=== PATIENT | female | born 1935 | race Caucasian/White ===

== ENCOUNTER 2017-10-17 20:37 | Emergency (ER) | payer MEDICARE, BC ==
[2017-10-17 21:04] VITALS: BP 152/89
[2017-10-17] MEDS ORDERED: Sodium Chloride 0.9% 10 ML Syringe FLUSH PRN (21:14)
[2017-10-17] MEDS ORDERED: Sodium Chloride 0.9% 1,000 ML IV STA (21:14)
[2017-10-17] MEDS ORDERED: Ondansetron 4 MG/2 ML SDV IVPUSH ONE (21:16)
--- NOTE | 2017-10-17 21:34 | EDM.PDOC ---
ED HPI GENERAL MEDICAL PROBLEM - General Chief Complaint: Gastrointestinal Problem Stated Complaint: VOMMITING AND STOMACH ISSUES Time Seen by Provider: 10/17/17 21:02 Source of Information: Reports: Patient History Limitations: Reports: No Limitations - History of Present Illness INITIAL COMMENTS - FREE TEXT/NARRATIVE: The patient presents with nausea, vomiting, and diarrhea. This has been going on since Tuesday. She denies any fever, chills, cough, chest pain, shortness of breath and abdominal pain. She has no dysuria. She has some friends who are also sick like her. They did have a republican on and she is wondering if they got sick from that. She does not have a gallbladder or an appendix. Onset: Gradual Duration: Day(s): (Since Tuesday) Severity: Moderate Improves with: Reports: None Worsens with: Reports: None Associated Symptoms: Reports: Nausea/Vomiting. Denies: Chest Pain, Cough, Fever /Chills, Headaches, Shortness of Breath - Related Data Allergies Allergy/AdvReac Type Severity Reaction Status Date / Time levofloxacin Allergy Cannot Verified 10/17/17 21:04 Remember Penicillins Allergy Hives Verified 10/17/17 21:04 Sulfa (Sulfonamide Allergy Hives Verified 10/17/17 21:04 Antibiotics) propoxyphene HCl AdvReac Vomiting Verified 10/17/17 21:04 [From Jacinta] HCTZ Allergy Cannot Uncoded 10/17/17 21:04 Remember insect bites Allergy Swelling Uncoded 10/17/17 21:04 tilapia Allergy Cannot Uncoded 10/17/17 21:04 Remember Home Meds: Home Meds Abilify. 5 mg PO DAILY 06/02/14 [History] Acetaminophen/oxyCODONE [Percocet 325-5 MG] 1 tab PO Q4H PRN #5 tab 06/02/14 [Rx ] Amitriptyline. 10 mg PO DAILY 06/02/14 [History] Ativan. 1 mg PO BEDTIME 06/02/14 [History] Baby Aspirin. 81 mg PO DAILY 06/02/14 [History] Metoprolol. 25 mg PO DAILY 06/02/14 [History] Protonix. 40 mg PO DAILY 06/02/14 [History] Calcium Carb/Magnesium Cmb #10 [Andry-Mag] 1 tab PO BID 01/15/15 [History] Denosumab [Prolia] 60 mg INJECT ASDIRECTED 01/15/15 [History] Elacom 0 mg TOP ASDIRECTED PRN 01/15/15 [History] Epi-Pen 0.3 mg INJECT ASDIRECTED PRN 01/15/15 [History] Hydrocodone/Acetaminophen [Hydrocodon-Acetaminoph 7.5-325] 5 - 325 mg PO ASDIRECTED PRN 01/15/15 [History] Hydrocodone/Acetaminophen [Lortab 5-325 mg Tablet] 1 - 2 each PO Q6HR PRN #20 tablet 01/15/15 [Rx] Hydrocortisone Acetate [Anusol-Hc] 25 mg PO ASDIRECTED PRN 01/15/15 [History] LORazepam 0.5 mg PO Q8HR PRN #5 tablet 01/15/15 [Rx] LORazepam [Ativan] 0.5 mg PO ASDIRECTED PRN 01/15/15 [History] Levothyroxine 25 mcg PO DAILY 01/15/15 [History] Loperamide [Imodium] 2 mg PO ASDIRECTED PRN 01/15/15 [History] Nitrofurantoin Monohyd/M-Cryst [Macrobid 100 mg Capsule] 100 mg PO BID #14 capsule 01/15/15 [Rx] Psyllium with Sucrose [Metamucil] 0 mg PO ASDIRECTED PRN 01/15/15 [History] Ondansetron [Zofran ODT] 4 mg PO Q6H PRN #20 tab.dis 10/17/17 [Rx] Past Medical History HEENT History: Reports: Hard of Hearing, Impaired Vision Cardiovascular History: Reports: High Cholesterol, Hypertension Gastrointestinal History: Reports: Other (See Below) Other Gastrointestinal History: Crohns Disease 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: Musculoskeletal History: Reports: Arthritis, Osteoarthritis, Other (See Below) Other Musculoskeletal History: plantar fascitis Neurological History: Reports: Other (See Below) 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" Psychiatric History: Reports: Anxiety, Depression - Infectious Disease History Infectious Disease History: Reports: Chicken Pox, Measles, Mumps - Past Surgical History GI Surgical History: Reports: Cholecystectomy Female Surgical History: Reports: Hysterectomy Social & Family History - Tobacco Use Smoking Status *Q: Former Smoker Years of Tobacco use: 25 Packs/Tins Daily: 0.5 Used Tobacco, but Quit: Yes Month Tobacco Last Used: 2004 Second Hand Smoke Exposure: No - Caffeine Use Caffeine Use: Reports: Coffee, Soda, Tea - Alcohol Use Days Per Week of Alcohol Use: 0 - Recreational Drug Use Recreational Drug Use: No ED ROS GENERAL - Review of Systems Review Of Systems: See Below Constitutional: Reports: No Symptoms HEENT: Reports: No Symptoms Respiratory: Reports: No Symptoms Cardiovascular: Reports: No Symptoms Endocrine: Reports: No Symptoms GI/Abdominal: Reports: Diarrhea, Nausea, Vomiting. Denies: Abdominal Pain : Reports: No Symptoms Musculoskeletal: Reports: No Symptoms ED EXAM, GI/ABD - Physical Exam Exam: See Below Exam Limited By: No Limitations General Appearance: Alert, No Apparent Distress Ears: Normal External Exam Nose: Normal Inspection Throat/Mouth: Other (Dry mucus membranes) Head: Atraumatic, Normocephalic Neck: Normal Inspection Respiratory/Chest: No Respiratory Distress, Lungs Clear, Normal Breath Sounds Cardiovascular: Regular Rate, Rhythm, No Edema, No Murmur GI/Abdominal Exam: Soft, Non-Tender, No Organomegaly, No Mass Back Exam: Normal Inspection Extremities: Normal Inspection Neurological: Alert, Oriented, No Motor/Sensory Deficits Course - Vital Signs Last Recorded V/S: Last Vital Signs Temp 97.5 F 10/17/17 20:57 Pulse 101 H 10/17/17 20:57 Resp 18 10/17/17 20:57 BP 152/89 H 10/17/17 20:57 Pulse Ox 98 10/17/17 20:57 Orthostatic Blood Pressure [ 133/90 Standing] Orthostatic Blood Pressure [ 128/88 Sitting] Orthostatic Blood Pressure [ 152/89 Supine] - Orders/Labs/Meds Orders: Active Orders 24 hr Category Date Time Status Peripheral IV Care [RC] . DIRECTED Care 10/17/17 21:15 Active Sodium Chloride 0.9% [Saline Flush] Med 10/17/17 21:14 Active 10 ml FLUSH ASDIRECTED PRN ED Antiemetic Medication Reflex [OM.PC] Stat Oth 10/17/17 21:15 Ordered Peripheral IV Insertion Adult [OM.PC] Stat Oth 10/17/17 21:14 Ordered Medication Orders Sodium Chloride (Saline Flush) 10 ml FLUSH ASDIRECTED PRN PRN Reason: Keep Vein Open Last Admin: 12/25/17 21:39 Dose: 10 ml Labs: Laboratory Tests 10/17/17 10/17/17 Range/Units 21:45 21:45 WBC 8.31 (3.98-10.04) K/mm3 RBC 4.16 (3.98-5.22) M/mm3 Hgb 11.6 (11.2-15.7) gm/L Hct 35.7 (34.1-44.9) % MCV 85.8 (79.4-94.8) fl MCH 27.9 (25.6-32.2) pg MCHC 32.5 (32.2-35.5) g/dl RDW Std Deviation 43.1 (36.4-46.3) fL Plt Count 194 (182-369) K/mm3 MPV 10.2 (9.4-12.3) fl Neut % (Auto) 85.1 H (34.0-71.1) % Lymph % (Auto) 5.8 L (19.3-51.7) % Alpine % (Auto) 8.9 (4.7-12.5) % Eos % (Auto) 0 L (0.7-5.8) Baso % (Auto) 0.1 (0.1-1.2) % Neut # (Auto) 7.07 H (1.56-6.13) K/mm3 Lymph # (Auto) 0.48 L (1.18-3.74) K/mm3 Alpine # (Auto) 0.74 H (0.24-0.36) K/mm3 Eos # (Auto) 0.00 L (0.04-0.36) K/mm3 Baso # (Auto) 0.01 (0.01-0.08) K/mm3 Manual Slide Review Normal smear Sodium 142 (136-145) mEq/L Potassium 3.9 (3.5-5.1) mEq/L Chloride 108 H (98-107) mEq/L Carbon Dioxide 23 (21-32) mEq/L Anion Gap 14.9 (5-15) BUN 26 H (7-18) mg/dL Creatinine 1.8 H (0.55-1.02) mg/dL Est Cr Clr Drug Dosing 20.96 mL/min Estimated GFR (MDRD) 27 (>60) mL/min BUN/Creatinine Ratio 14.4 (14-18) Glucose 120 H (83-115) mg/dL Calcium 8.0 L (8.5-10.1) mg/dL Total Bilirubin 0.4 (0.2-1.0) mg/dL AST 25 (15-37) U/L ALT 20 (14-59) U/L Alkaline Phosphatase 62 (46-116) U/L Total Protein 6.9 (6.4-8.2) g/dl Albumin 3.5 (3.4-5.0) g/dl Globulin 3.4 gm/dL Albumin/Globulin Ratio 1.0 (1-2) Lipase 188 (73-393) U/L Meds: Medications Generic Name Dose Route Start Last Admin Trade Name Freq PRN Reason Stop Dose Admin Sodium Chloride 10 ml 10/17/17 21:14 10/17/17 21:39 Saline Flush FLUSH 10 ml ASDIRECTED PRN Administration Keep Vein Open Discontinued Medications Generic Name Dose Route Start Last Admin Trade Name Freq PRN Reason Stop Dose Admin Sodium Chloride 1,000 mls @ 1,000 mls/hr 10/17/17 21:14 10/17/17 21:38 Normal Saline IV 10/17/17 22:13 1,000 mls/hr .BOLUS STA Administration Ondansetron HCl 4 mg 10/17/17 21:16 10/17/17 21:38 Zofran IVPUSH 10/17/17 21:17 4 mg ONETIME ONE Administration - Re-Assessments/Exams Free Text/Narrative Re-Assessment/Exam: 10/17/17 21:33 I ordered an IV NS 1L bolus, zofran 4mg IV, labs and UA. 10/17/17 22:47 Her CBC looks good. Her creatinine was elevated at 1.8. Her lipase is negative. She feels better. I will discharge her home with some zofran. It appears she had some food poisoning. Departure - Departure Time of Disposition: 22:55 Disposition: Home, Self-Care 01 Condition: Good Clinical Impression: Gastroenteritis, Renal insufficiency - Discharge Information Prescriptions: Ondansetron [Zofran ODT] 4 mg PO Q6H PRN #20 tab.dis PRN Reason: Nausea/Vomiting Referrals: Lalit Kenyon MD [Primary Care Provider] - Forms: ED Department Discharge Additional Instructions: Take the zofran every 6 hours as needed for nausea and vomiting. Drink plenty of fluids. Please return if you are worse. - My Orders Last 24 Hours: My Active Orders 10/17/17 21:14 Sodium Chloride 0.9% [Saline Flush] 10 ml FLUSH ASDIRECTED PRN Peripheral IV Insertion Adult [OM.PC] Stat 10/17/17 21:15 Peripheral IV Care [RC] . DIRECTED ED Antiemetic Medication Reflex [OM.PC] Stat - Assessment/Plan Last 24 Hours: My Active Orders 10/17/17 21:14 Sodium Chloride 0.9% [Saline Flush] 10 ml FLUSH ASDIRECTED PRN Peripheral IV Insertion Adult [OM.PC] Stat 10/17/17 21:15 Peripheral IV Care [RC] . DIRECTED ED Antiemetic Medication Reflex [OM.PC] Stat
== END 2017-10-17 23:15 | disposition home or self-care (01) ==
LOC: JD.ED 20:37
DX: K52.9 Noninfective gastroenteritis and colitis, unspecified (principal); N28.9 Disorder of kidney and ureter, unspecified; E78.00 Pure hypercholesterolemia, unspecified; I10 Essential (primary) hypertension; Z88.1 Allergy status to other antibiotic agents; Z88.0 Allergy status to penicillin; Z88.2 Allergy status to sulfonamides; Z79.899 Other long term (current) drug therapy; Z87.891 Personal history of nicotine dependence
CPT/HCPCS: 36415; 80053; 83690; 85025; 96361; 96374; 99284; J2405; J7040; J7050

== ENCOUNTER 2017-10-19 13:46 | Emergency (ER) | payer MEDICARE, BC, MEDICAID ==
[2017-10-19] MEDS ORDERED: Alum Hydrox/Mag Hydrox/Simeth 30 ML, Lidocaine 2% 15 ML PO ONE ×2 (14:49)
--- NOTE | 2017-10-19 15:02 | EDM.PDOC ---
ED HPI GENERAL MEDICAL PROBLEM - General Chief Complaint: Chest Pain Stated Complaint: HEART ISSUES Time Seen by Provider: 10/19/17 14:32 Source of Information: Reports: Patient History Limitations: Reports: No Limitations - History of Present Illness INITIAL COMMENTS - FREE TEXT/NARRATIVE: Patient is a 81 y/o female who presents to the E.D. complaining of intermittent epigastric discomfort. States it came about today described as a crampy, tightness, sharp, relieved with burping. States the burping relieves the pressure/tightness. States she was evaluated in the E.D. earlier this week for nausea/vomiting/diarrhea since the 15 of October. States multiple friends have had similar symptoms. Denies any history of ingestion of bad or questionable food, out of country travel, blood in her stool, sob, fever, pain with urination, back pain, acid reflux, cp, sob, dizziness, or any additional complaints. States she has been able to keep fluids down but no food. Chest Pain Score (Numeric/FACES): 9 - Related Data Allergies Allergy/AdvReac Type Severity Reaction Status Date / Time levofloxacin Allergy Cannot Verified 10/19/17 13:55 Remember Penicillins Allergy Hives Verified 10/19/17 13:55 Sulfa (Sulfonamide Allergy Hives Verified 10/19/17 13:55 Antibiotics) propoxyphene HCl AdvReac Vomiting Verified 10/19/17 13:55 [From Jacinta] HCTZ Allergy Cannot Uncoded 10/19/17 13:55 Remember insect bites Allergy Swelling Uncoded 10/19/17 13:55 tilapia Allergy Cannot Uncoded 10/19/17 13:55 Remember Home Meds: Home Meds Abilify. 5 mg PO DAILY 06/02/14 [History] Acetaminophen/oxyCODONE [Percocet 325-5 MG] 1 tab PO Q4H PRN #5 tab 06/02/14 [Rx ] Amitriptyline. 10 mg PO DAILY 06/02/14 [History] Ativan. 1 mg PO BEDTIME 06/02/14 [History] Baby Aspirin. 81 mg PO DAILY 06/02/14 [History] Metoprolol. 25 mg PO DAILY 06/02/14 [History] Protonix. 40 mg PO DAILY 06/02/14 [History] Calcium Carb/Magnesium Cmb #10 [Andry-Mag] 1 tab PO BID 01/15/15 [History] Denosumab [Prolia] 60 mg INJECT ASDIRECTED 01/15/15 [History] Elacom 0 mg TOP ASDIRECTED PRN 01/15/15 [History] Epi-Pen 0.3 mg INJECT ASDIRECTED PRN 01/15/15 [History] Hydrocodone/Acetaminophen [Hydrocodon-Acetaminoph 7.5-325] 5 - 325 mg PO ASDIRECTED PRN 01/15/15 [History] Hydrocortisone Acetate [Anusol-Hc] 25 mg PO ASDIRECTED PRN 01/15/15 [History] LORazepam [Ativan] 0.5 mg PO ASDIRECTED PRN 01/15/15 [History] Levothyroxine 25 mcg PO DAILY 01/15/15 [History] Loperamide [Imodium] 2 mg PO ASDIRECTED PRN 01/15/15 [History] Psyllium with Sucrose [Metamucil] 0 mg PO ASDIRECTED PRN 01/15/15 [History] Ondansetron [Zofran ODT] 4 mg PO Q6H PRN #20 tab.dis 10/17/17 [Rx] Past Medical History HEENT History: Reports: Hard of Hearing, Impaired Vision Cardiovascular History: Reports: High Cholesterol, Hypertension Gastrointestinal History: Reports: Other (See Below) Other Gastrointestinal History: Crohns Disease 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: Musculoskeletal History: Reports: Arthritis, Osteoarthritis, Other (See Below) Other Musculoskeletal History: plantar fascitis Neurological History: Reports: Migraines, Other (See Below) 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" Psychiatric History: Reports: Anxiety, Depression - Infectious Disease History Infectious Disease History: Reports: Chicken Pox, Measles, Mumps - Past Surgical History HEENT Surgical History: Reports: Adenoidectomy, Cataract Surgery, Tonsillectomy Cardiovascular Surgical History: Reports: None GI Surgical History: Reports: Appendectomy, Cholecystectomy Female Surgical History: Reports: Hysterectomy Social & Family History - Family History Family Medical History: Noncontributory - Tobacco Use Smoking Status *Q: Never Smoker Years of Tobacco use: 25 Packs/Tins Daily: 0.5 Used Tobacco, but Quit: Yes Month Tobacco Last Used: 2004 Second Hand Smoke Exposure: No - Caffeine Use Caffeine Use: Reports: Coffee, Soda, Tea - Alcohol Use Days Per Week of Alcohol Use: 0 - Recreational Drug Use Recreational Drug Use: No ED ROS GENERAL - Review of Systems Review Of Systems: See Below Constitutional: Reports: Decreased Appetite. Denies: Fever, Chills, Malaise HEENT: Reports: No Symptoms Respiratory: Denies: Shortness of Breath, Cough, Sputum Cardiovascular: Denies: Chest Pain, Dyspnea on Exertion, Lightheadedness, Palpitations, Syncope GI/Abdominal: Reports: Abdominal Pain (epigastric), Diarrhea, Decreased Appetite. Denies: Black Stool, Bloody Stool, Constipation, Nausea, Vomiting : Reports: No Symptoms Musculoskeletal: Reports: No Symptoms Skin: Reports: No Symptoms Neurological: Reports: No Symptoms ED EXAM, GENERAL - Physical Exam Exam: See Below Exam Limited By: No Limitations General Appearance: Alert, WD/WN, No Apparent Distress Ears: Hearing Grossly Normal Nose: Normal Inspection Throat/Mouth: Normal Voice, No Airway Compromise Neck: Normal Inspection, Supple Respiratory/Chest: No Respiratory Distress, Lungs Clear, Normal Breath Sounds, Chest Non-Tender Cardiovascular: Normal Peripheral Pulses, Regular Rate, Rhythm, No Murmur Peripheral Pulses: 4+: Radial (L), Radial (R) GI/Abdominal: Normal Bowel Sounds, Soft, No Organomegaly, No Distention, Tender (mild tenderness to the epigastric region) Back Exam: Normal Inspection Extremities: Normal Inspection, Non-Tender, No Pedal Edema Neurological: Alert, Oriented, CN II-XII Intact, Normal Cognition, No Motor/ Sensory Deficits Psychiatric: Normal Affect, Normal Mood Skin Exam: Warm, Dry, Intact, Normal Color Course - Vital Signs Last Recorded V/S: Last Vital Signs Temp 97.6 F 10/19/17 13:55 Pulse 84 10/19/17 15:00 Resp 18 10/19/17 15:00 BP 123/62 10/19/17 15:00 Pulse Ox 100 10/19/17 15:00 - Orders/Labs/Meds Labs: Laboratory Tests 10/19/17 10/19/17 10/19/17 Range/Units 14:15 14:15 14:15 WBC 6.67 (3.98-10.04) K/mm3 RBC 3.82 L (3.98-5.22) M/mm3 Hgb 10.7 L (11.2-15.7) gm/L Hct 33.0 L (34.1-44.9) % MCV 86.4 (79.4-94.8) fl MCH 28.0 (25.6-32.2) pg MCHC 32.4 (32.2-35.5) g/dl RDW Std Deviation 43.9 (36.4-46.3) fL Plt Count 179 L (182-369) K/mm3 MPV 11.1 (9.4-12.3) fl Neut % (Auto) 68.7 (34.0-71.1) % Lymph % (Auto) 11.8 L (19.3-51.7) % Pershing % (Auto) 18.4 H (4.7-12.5) % Eos % (Auto) 0.9 (0.7-5.8) Baso % (Auto) 0.1 (0.1-1.2) % Neut # (Auto) 4.57 (1.56-6.13) K/mm3 Lymph # (Auto) 0.79 L (1.18-3.74) K/mm3 Pershing # (Auto) 1.23 H (0.24-0.36) K/mm3 Eos # (Auto) 0.06 (0.04-0.36) K/mm3 Baso # (Auto) 0.01 (0.01-0.08) K/mm3 Manual Slide Review Normal smear PT 11.3 (8.0-13.0) SECONDS INR 1.03 Sodium 142 (136-145) mEq/L Potassium 3.7 (3.5-5.1) mEq/L Chloride 109 H (98-107) mEq/L Carbon Dioxide 17 L (21-32) mEq/L Anion Gap 19.7 H (5-15) BUN 27 H (7-18) mg/dL Creatinine 1.8 H (0.55-1.02) mg/dL Est Cr Clr Drug Dosing 20.96 mL/min Estimated GFR (MDRD) 27 (>60) mL/min BUN/Creatinine Ratio 15.0 (14-18) Glucose 86 (83-115) mg/dL Calcium 7.2 L (8.5-10.1) mg/dL Total Bilirubin 0.4 (0.2-1.0) mg/dL AST 50 H (15-37) U/L ALT 31 (14-59) U/L Alkaline Phosphatase 56 (46-116) U/L Troponin I < 0.017 (0.00-0.056) ng/mL C-Reactive Protein 1.0 (<1.0) mg/dL Total Protein 6.5 (6.4-8.2) g/dl Albumin 3.3 L (3.4-5.0) g/dl Globulin 3.2 gm/dL Albumin/Globulin Ratio 1.0 (1-2) Lipase 353 (73-393) U/L Meds: Medications Discontinued Medications Generic Name Dose Route Start Last Admin Trade Name Freq PRN Reason Stop Dose Admin Al Hydroxide/Mg Hydroxide 30 0 ml 10/19/17 14:49 10/19/17 15:14 ml/ Lidocaine HCl 15 ml PO 10/19/17 14:50 45 ml ONETIME ONE Administration Sodium Chloride 500 mls @ 999 mls/hr 10/19/17 15:33 10/19/17 15:49 Normal Saline IV 10/19/17 16:03 999 mls/hr .BOLUS ONE Administration Pantoprazole Sodium 40 mg 10/19/17 15:42 10/19/17 15:49 Protonix Iv IVPUSH 10/19/17 15:43 40 mg ONETIME ONE Administration Sodium Chloride 10 ml 10/19/17 15:39 Saline Flush FLUSH ASDIRECTED PRN Keep Vein Open - Re-Assessments/Exams Free Text/Narrative Re-Assessment/Exam: IV established. Basic labs and studies obtained include CBC, chem 14, lipase, troponin, EKG, and CRP. In addition will obtain abdominal series with a chest x- ray. Suspect cause of discomfort is either secondary to esophageal spasms, hiatal hernia, or GERD. EKG sinus tach at a rate of 102 with right bundle branch block pattern, occasional PACs, QTC mildly prolonged, left axis deviation, and left posterior fascicular block. 10/19/17 15:41 Labs reviewed: Sodium 142, potassium 3.7,Cl- 109, CO2 17, AG 19.7 , BUN 27, and Cr 1.8. AST mildly elevated at 50, troponin less than 0.017, CRP 1, and lipase is 353. Patient is in metabolic acidosis secondary to volume depletion. Creatinine 1.8 which is above her baseline when reviewing previous blood work. Ordered 1 liter of NS 500mls/hr for rehydration. GI cocktail relieved discomfort, thus ordered protonix 40mg IVP. CXR and abdomen series reviewed with Dr. Wynn. Few Air fluid levels present. No findings concerning for obstruction. Hiatal Hernia present. Discuss results of labs and chest x-ray with patient. She states she is feeling better. She is ready be discharged home. Departure - Departure Time of Disposition: 17:24 Disposition: Home, Self-Care 01 Condition: Good Clinical Impression: Chronic GERD, Hiatal hernia, Elevated serum creatinine, Volume depletion, Gastroenteritis, Renal insufficiency, Gastroenteritis Instructions: Hiatal Hernia Referrals: Lalit Kenyon MD [Primary Care Provider] - Forms: ED Department Discharge Additional Instructions: As discussed labs indicated due to nausea/vomiting and diarrhea that you were volume depleted. Suspect cause of intermittent pain to the epigastric region is related to a hiatal hernia with GERD. This was exacerbated with recent GI infection. Thus suggest pushing fluids eating a bland diet that you can tolerate. Refrain from caffeine use. Continue taking the Zofran as needed for nausea and vomiting. She be taking Protonix as prescribed. Suggest during the day if you need for intermittent flareups to utilize Maalox when necessary. Follow-up with your primary care provider the end of this week or next week for reevaluation. Return to ED if he developed any new or worsening symptoms.
[2017-10-19 15:16] VITALS: BP 123/62
[2017-10-19] MEDS ORDERED: Sodium Chloride 0.9% 500 ML IV ONE (15:33)
[2017-10-19] MEDS ORDERED: Sodium Chloride 0.9% 10 ML Syringe FLUSH PRN (15:39)
[2017-10-19] MEDS ORDERED: Pantoprazole 40 MG Vial IVPUSH ONE (15:42)
--- NOTE | 2017-10-19 16:27 | CR ---
Abdominal series: Supine and upright views of the abdomen were obtained as well as frontal view of the chest. Comparison: No previous abdominal x-ray, previous abdomen and pelvis CT exam of 01/26/16 is available. Chest x-ray of 01/15/15 is available. Heart size is normal. Mild tortuosity of the thoracic aorta is seen. Lungs are clear. Scoliosis is noted within the spine. Surgical clips are seen from prior cholecystectomy. Vascular calcification is seen. Bowel gas pattern appears normal. Impression: 1. Incidental findings. Diagnostic code #2
== END 2017-10-19 17:40 | disposition home or self-care (01) ==
LOC: JD.ED 13:46
DX: K21.9 Gastro-esophageal reflux disease without esophagitis (principal); K52.9 Noninfective gastroenteritis and colitis, unspecified; K44.9 Diaphragmatic hernia without obstruction or gangrene; E86.9 Volume depletion, unspecified; N28.9 Disorder of kidney and ureter, unspecified; R79.89 Other specified abnormal findings of blood chemistry; I10 Essential (primary) hypertension; F32.9 Major depressive disorder, single episode, unspecified; Z87.891 Personal history of nicotine dependence; Z79.899 Other long term (current) drug therapy; Z88.0 Allergy status to penicillin; Z88.1 Allergy status to other antibiotic agents; Z88.2 Allergy status to sulfonamides; Z88.8 Allergy status to other drugs, medicaments and biological substances; Z91.048 Other nonmedicinal substance allergy status
CPT/HCPCS: 36415; 74022; 80053; 83690; 84484; 85025; 85610; 86140; 96361; 96374; 99285; A9270; C9113; J7040

== ENCOUNTER 2019-04-02 07:05 | Inpatient (IN) | payer MEDICARE, BC, MEDICAID ==
[~2019-04-02 07:05] MED LIST: Cyclobenzaprine 10 MG Tab PO PRN; Lactated Ringers 1,000 ML IV SCH; Lidocaine 1%/Sod Bicarbonate in NS 8.4% 1 ML Syringe IDERM PRN; Sodium Chloride 0.9% 10 ML Syringe FLUSH PRN
[2019-04-02] MEDS ORDERED: Clindamycin Phosphate 900 MG/6 ML SDV ONE (07:14)
[2019-04-02] MEDS ORDERED: ceFAZolin 1 GM Vial ONE ×2 (07:21→07:45)
[2019-04-02] MEDS ORDERED: fentaNYL 100 MCG/2 ML SDV ONE ×3 (07:21→10:41)
--- NOTE | 2019-04-02 07:36 | PCM.PREANE ---
Preanesthetic Assessment - Anesthesia/Transfusion/Family Hx Anesthesia History: Prior Anesthesia Without Reaction Family History of Anesthesia Reaction: Yes Family History of Anesthesia Reaction, Other: vomiting Transfusion History: No Prior Transfusion(s) Intubation History: Unknown - Review of Systems General: No Symptoms Pulmonary: Shortness of Breath Cardiovascular: Dyspnea on Exertion Gastrointestinal: No Symptoms Neurological: No Symptoms Other: Reports: Thyroid Problems - Physical Assessment NPO Status Date: 04/01/19 NPO Status Time: 11:45 Height: 1.6 m Weight: 69 kg ASA Class: 3 Mental Status: Alert & Oriented x3 Dentition: Reports: Dentures ROM/Head Extension: Limited/Partial Lungs: Clear to Auscultation Cardiovascular: Regular Rate - Lab Values: Laboratory Last Values MRSA (PCR) Negative 03/21/19 13:48 - Allergies Allergies/Adverse Reactions: Allergies Allergy/AdvReac Type Severity Reaction Status Date / Time fish derived Allergy Cannot Verified 03/30/19 13:40 Remember hydrochlorothiazide Allergy Cannot Verified 03/30/19 13:40 Remember levofloxacin Allergy Cannot Verified 03/30/19 13:40 Remember Penicillins Allergy Hives Verified 03/30/19 13:40 Sulfa (Sulfonamide Allergy Hives Verified 03/30/19 13:40 Antibiotics) propoxyphene HCl AdvReac Vomiting Verified 03/30/19 13:40 [From Darvon] HCTZ Allergy Cannot Uncoded 03/30/19 13:40 Remember insect bites Allergy Swelling Uncoded 03/30/19 13:40 tilapia Allergy Cannot Uncoded 03/30/19 13:40 Remember - Blood Blood Available: Yes Product(s) Available: PRBC - Anesthesia Plan Beta Suyapa: Metoprolol Med Last Dose Date: 04/02/19 Med Last Dose Time: 05:50 - Acknowledgements Anesthesia Type Planned: Spinal Pt an Appropriate Candidate for the Planned Anesthesia: Yes Alternatives and Risks of Anesthesia Discussed w Pt/Guardian: Yes Pt/Guardian Understands and Agrees with Anesthesia Plan: Yes Additional Comments: test dose cephazolin PreAnesthesia Questionnaire HEENT History: Reports: Cataract, Hard of Hearing, Impaired Vision Cardiovascular History: Reports: CAD, High Cholesterol, Hypertension, Other ( See Below) Other Cardiovascular History: varicose veins Respiratory History: Reports: Other (See Below) Other Respiratory History: fiberoptic assisted intubation Gastrointestinal History: Reports: Chronic Diarrhea, GERD, Irritable Bowel Syndrome, Other (See Below) Other Gastrointestinal History: Crohns Disease Genitourinary History: Reports: Other (See Below) Other Genitourinary History: CKD IV, lithium neprhpathy, kidney stone, UTIs, colporrhaphy, cyst removed from abdomen 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: Musculoskeletal History: Reports: Arthritis, Osteoarthritis, Osteoporosis, Other (See Below) Other Musculoskeletal History: plantar fascitis Neurological History: Reports: Headaches, Chronic, Migraines, Other (See Below) 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", degenerative disc disease Psychiatric History: Reports: Anxiety, Bipolar, Depression, Other (See Below) Other Psychiatric History: manic depressive illness Endocrine/Metabolic History: Reports: Hypothyroidism, Osteopenia Hematologic History: Reports: Anemia, Iron Deficiency Immunologic History: Reports: None Oncologic (Cancer) History: Reports: None Dermatologic History: Reports: None - Infectious Disease History Infectious Disease History: Reports: Chicken Pox, Measles, Mumps - Past Surgical History Head Surgeries/Procedures: Reports: None HEENT Surgical History: Reports: Adenoidectomy, Cataract Surgery, Tonsillectomy Cardiovascular Surgical History: Reports: None Respiratory Surgical History: Reports: None GI Surgical History: Reports: Appendectomy, Cholecystectomy, EGD Female Surgical History: Reports: Hysterectomy, Oophorectomy Male Surgical History: Reports: None Endocrine Surgical History: Reports: Parathyroidectomy Musculoskeletal Surgical History: Reports: Knee Replacement Oncologic Surgical History: Reports: None Dermatological Surgical History: Reports: None - SUBSTANCE USE Smoking Status *Q: Former Smoker Second Hand Smoke Exposure: No Recreational Drug Use History: No - HOME MEDS Home Medications: Home Meds ARIPiprazole [Aripiprazole] 2.5 mg PO DAILY 03/30/19 [History] Acetaminophen [Tylenol] 650 mg PO Q4HR PRN 03/30/19 [History] Cholecalciferol (Vitamin D3) [Vitamin D3] 5,000 unit PO DAILY 03/30/19 [History] Diclofenac Sodium [Voltaren 1% Gel] 1 dose TOP QID PRN 03/30/19 [History] EPINEPHrine [Epipen] 1 dose IM ONETIME PRN 03/30/19 [History] Iron Ag,Ps/C/Fa6/B12/Zn/SA/Sto [Niferex Tablet] 1 tab PO DAILY 03/30/19 [History ] LORazepam 1 mg PO BID 03/30/19 [History] Levothyroxine 25 mcg PO DAILY 03/30/19 [History] Loperamide [Imodium AD] 2 mg PO ASDIRECTED PRN 03/30/19 [History] Metoprolol Succinate [Toprol XL 50mg] 25 mg PO DAILY 03/30/19 [History] Mometasone Furoate [Elocon] 1 dose TOP ASDIRECTED PRN 03/30/19 [History] Pantoprazole Sodium [Protonix] 40 mg PO DAILY 03/30/19 [History] Psyllium Husk [Psyllium Seed] 1 dose PO DAILY PRN 03/30/19 [History] Sodium Bicarbonate 650 mg PO BID 03/30/19 [History] traMADol HCl [Tramadol HCl] 50 mg PO TID PRN 03/30/19 [History] - CURRENT (IN HOUSE) MEDS Current Meds: Current Medications Hydrocodone Bitart/Acetaminophen ([place] 325-5 Mg) 1 - 2 tab PO Q4H PRN PRN Reason: Pain Aspirin (Halfprin) 81 mg PO BID JAY Bisacodyl (Dulcolax) 5 mg PO DAILY PRN PRN Reason: Constipation Morphine Sulfate 8 mg/Epinephrine HCl 0.3 mg/Cefuroxime Sodium 750 mg/Sodium Chloride 27.9 ml 0 mg .XX ONETIME ONE Stop: 04/02/19 07:01 Cyclobenzaprine HCl (Flexeril) 10 mg PO TID PRN PRN Reason: Spasms Docusate Sodium (Colace) 100 mg PO BID [facility] Hydromorphone HCl (Dilaudid) 0.2 mg IVPUSH Q2H PRN PRN Reason: Pain (moderate 4-6) Lactated Ringer's (Ringers, Lactated) 1,000 mls @ 125 mls/hr IV ASDIRECTED JAY Stop: 04/02/19 23:00 Cefazolin Sodium/Dextrose 2 gm (/ Premix) 50 mls @ 100 mls/hr IV Q8H [facility] Stop: 04/03/19 07:29 Lidocaine/Sodium Bicarbonate (Buffered Lidocaine 1% In Ns 8.4%) 0.25 ml IDERM ONETIME PRN PRN Reason: Prior to IV Start Stop: 04/02/19 18:00 Naloxone HCl (Narcan) 0.1 mg IVPUSH Q5M PRN PRN Reason: Oversedation Ondansetron HCl (Zofran) 4 mg IVPUSH Q6H PRN PRN Reason: Nausea/Vomiting Senna (Senna) 8.6 mg PO BID PRN PRN Reason: Constipation Sodium Chloride (Saline Flush) 10 ml FLUSH ASDIRECTED PRN PRN Reason: Keep Vein Open Stop: 04/02/19 18:00 Discontinued Medications Bupivacaine HCl (Marcaine 0.25%) Confirm Administered Dose 30 ml .ROUTE .STK- MED ONE Stop: 04/02/19 07:16 Cefazolin Sodium (Ancef) Confirm Administered Dose 2 gm .ROUTE .STK-MED ONE Stop: 04/02/19 07:16 Cefazolin Sodium (Ancef) Confirm Administered Dose 1 gm .ROUTE .STK-MED ONE Stop: 04/02/19 07:22 Clindamycin Phosphate (Cleocin) Confirm Administered Dose 900 mg .ROUTE .STK- MED ONE Stop: 04/02/19 07:15 Fentanyl (Sublimaze) Confirm Administered Dose 100 mcg .ROUTE .STK-MED ONE Stop: 04/02/19 07:22 Iodine (Iodine 2% Mild Tincture) Confirm Administered Dose 30 ml .ROUTE .STK- MED ONE Stop: 04/02/19 07:16 Tranexamic Acid (Cyklokapron) Confirm Administered Dose 1,000 mg .ROUTE .STK- MED ONE Stop: 04/02/19 07:15 Vancomycin HCl (Vancomycin) Confirm Administered Dose 1 gm .ROUTE .STK-MED ONE Stop: 04/02/19 07:15
[2019-04-02] MEDS: Sodium Chloride 0.9% 1,000 ML IV SCH ×3 (07:40→13:35)
[2019-04-02] MEDS ORDERED: Ropivacaine 0.5% 5 MG/ML 30 ML SDV ONE (07:41)
[2019-04-02] MEDS ORDERED: EPINEPHrine 1 MG/ML SDV ONE (07:41)
[2019-04-02] MEDS ORDERED: Sennosides 8.6 MG Tab PO PRN (08:30)
[2019-04-02] MEDS ORDERED: Propofol 200 MG/20 ML SDV ONE (08:40)
[2019-04-02] MEDS ORDERED: Midazolam 1 MG/ML 2 ML SDV ONE (08:47)
[2019-04-02] MEDS ORDERED: Rocuronium 50 MG/5 ML Vial ONE (08:48)
[2019-04-02] MEDS ORDERED: Phenylephrine/Normal Saline 100 MCG/ML 10 ML Syringe ONE (08:51)
[2019-04-02] MEDS ORDERED: Bisacodyl 5 MG Tab PO PRN (09:00)
[2019-04-02] MEDS ORDERED: Naloxone 0.4 MG/ML SDV IVPUSH PRN (09:00)
[2019-04-02] MEDS ORDERED: Labetalol 100 MG/20 ML MDV ONE (09:19)
[2019-04-02] MEDS ORDERED: Ondansetron 4 MG/2 ML SDV ONE (09:21)
[2019-04-02] MEDS: Iodine/Sodium Iodide 2% Tincture 30 ML Bottle ONE ×2 (09:21→09:48)
[2019-04-02] MEDS: ceFAZolin 1 GM Vial ONE ×2 (09:23→09:51)
[2019-04-02] MEDS: Morphine 8 MG, EPINEPHrine 0.3 MG, Cefuroxime 750 MG, Sodium Chloride 0.9% 28.9 ML ONE ×12 (09:24→19:46)
[2019-04-02] MEDS: Bupivacaine 0.25% 30 ML SDV ONE ×2 (09:25→09:56)
[2019-04-02] MEDS: Vancomycin 1 GM SDV ONE ×2 (09:26→09:59)
--- NOTE | 2019-04-02 09:26 | PCM.CONS ---
H&P History of Present Illness - General Date of Service: 04/02/19 Admit Problem/Dx: Admission Diagnosis/Problem Admission Diagnosis/Problem Osteoarthritis of knee Source of Information: Patient, Old Records, Provider, RN, RN Notes Reviewed History Limitations: Reports: No Limitations - History of Present Illness Initial Comments - Free Text/Narative: Rossy Mas is an 83 yo female patient of Dr. Lu who is post-operative day 0 of right TKA. Hospital medicine was consulted for post-operative medical care of the following listed medical conditions. At this time she is resting comfortably in bed. Pain is controlled. She denies any chest pain, shortness of breath, palpitations, nausea, or vomiting. She carries a history of: Stage IV CKD, HTN, HLD, CAD, Hypothyroidism, GERD, Osteopenia, Parathyroidectomy, Iron deficiency anemia, Migraines, Varicose Veins, Chronic Diarrhea, IBS, Crohn's Disease, [place] neuropathy, Anxiety, Bipolar disorder, depression, osteopenia, DJD. She is a former smoker. She is a full code. Her primary care provider is Dr. Winchester. She sees Dr. Swenson for nephrology. Right Knee Pain Score (Numeric/FACES): 2 - Related Data Allergies/Adverse Reactions: Allergies Allergy/AdvReac Type Severity Reaction Status Date / Time fish derived Allergy Cannot Verified 03/30/19 13:40 Remember hydrochlorothiazide Allergy Cannot Verified 03/30/19 13:40 Remember levofloxacin Allergy Cannot Verified 03/30/19 13:40 Remember Penicillins Allergy Hives Verified 03/30/19 13:40 Sulfa (Sulfonamide Allergy Hives Verified 03/30/19 13:40 Antibiotics) propoxyphene HCl AdvReac Vomiting Verified 03/30/19 13:40 [From Darvon] HCTZ Allergy Cannot Uncoded 03/30/19 13:40 Remember insect bites Allergy Swelling Uncoded 03/30/19 13:40 tilapia Allergy Cannot Uncoded 03/30/19 13:40 Remember Home Medications: Home Meds ARIPiprazole [Aripiprazole] 2.5 mg PO DAILY 03/30/19 [History] Acetaminophen [Tylenol] 650 mg PO Q4HR PRN 03/30/19 [History] Cholecalciferol (Vitamin D3) [Vitamin D3] 5,000 unit PO DAILY 03/30/19 [History] Diclofenac Sodium [Voltaren 1% Gel] 1 dose TOP QID PRN 03/30/19 [History] EPINEPHrine [Epipen] 1 dose IM ONETIME PRN 03/30/19 [History] Iron Ag,Ps/C/Fa6/B12/Zn/SA/Sto [Niferex Tablet] 1 tab PO DAILY 03/30/19 [History ] LORazepam 1 mg PO BID 03/30/19 [History] Levothyroxine 25 mcg PO DAILY 03/30/19 [History] Loperamide [Imodium AD] 2 mg PO ASDIRECTED PRN 03/30/19 [History] Metoprolol Succinate [Toprol XL 50mg] 25 mg PO DAILY 03/30/19 [History] Mometasone Furoate [Elocon] 1 dose TOP ASDIRECTED PRN 03/30/19 [History] Pantoprazole Sodium [Protonix] 40 mg PO DAILY 03/30/19 [History] Psyllium Husk [Psyllium Seed] 1 dose PO DAILY PRN 03/30/19 [History] Sodium Bicarbonate 325 mg PO BID 03/30/19 [History] traMADol HCl [Tramadol HCl] 50 mg PO TID PRN 03/30/19 [History] Past Medical History HEENT History: Reports: Cataract, Hard of Hearing, Impaired Vision Cardiovascular History: Reports: CAD, High Cholesterol, Hypertension, Other ( See Below) Other Cardiovascular History: varicose veins Respiratory History: Reports: Other (See Below) Other Respiratory History: fiberoptic assisted intubation Gastrointestinal History: Reports: Chronic Diarrhea, GERD, Irritable Bowel Syndrome, Other (See Below) Other Gastrointestinal History: Crohns Disease Genitourinary History: Reports: Other (See Below) Other Genitourinary History: CKD IV, lithium neprhpathy, kidney stone, UTIs, colporrhaphy, cyst removed from abdomen 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: Musculoskeletal History: Reports: Arthritis, Osteoarthritis, Osteoporosis, Other (See Below) Other Musculoskeletal History: plantar fascitis Neurological History: Reports: Headaches, Chronic, Migraines, Other (See Below) 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", degenerative disc disease Psychiatric History: Reports: Anxiety, Bipolar, Depression, Other (See Below) Other Psychiatric History: manic depressive illness Endocrine/Metabolic History: Reports: Hypothyroidism, Osteopenia Hematologic History: Reports: Anemia, Iron Deficiency Immunologic History: Reports: None Oncologic (Cancer) History: Reports: None Dermatologic History: Reports: None - Infectious Disease History Infectious Disease History: Reports: Chicken Pox, Measles, Mumps - Past Surgical History Head Surgeries/Procedures: Reports: None HEENT Surgical History: Reports: Adenoidectomy, Cataract Surgery, Tonsillectomy Cardiovascular Surgical History: Reports: None Respiratory Surgical History: Reports: None GI Surgical History: Reports: Appendectomy, Cholecystectomy, EGD Female Surgical History: Reports: Hysterectomy, Oophorectomy Male Surgical History: Reports: None Endocrine Surgical History: Reports: Parathyroidectomy Musculoskeletal Surgical History: Reports: Knee Replacement Oncologic Surgical History: Reports: None Dermatological Surgical History: Reports: None Social & Family History - Family History Family Medical History: Noncontributory - Tobacco Use Smoking Status *Q: Former Smoker Used Tobacco, but Quit: Yes Month/Year Tobacco Last Used: 2008 Second Hand Smoke Exposure: No - Caffeine Use Caffeine Use: Reports: Coffee - Recreational Drug Use Recreational Drug Use: No H&P Review of Systems - Review of Systems: Review Of Systems: See Below General: Reports: No Symptoms. Denies: Fever, Chills HEENT: Reports: No Symptoms. Denies: Headaches, Sore Throat Pulmonary: Reports: No Symptoms. Denies: Shortness of Breath, Wheezing, Pleuritic Chest Pain, Cough, Sputum Cardiovascular: Reports: No Symptoms. Denies: Chest Pain, Palpitations, Dyspnea on Exertion, Edema Gastrointestinal: Reports: No Symptoms. Denies: Abdominal Pain, Constipation, Diarrhea, Nausea, Vomiting Genitourinary: Reports: No Symptoms. Denies: Pain Musculoskeletal: Reports: Leg Pain Skin: Reports: No Symptoms. Denies: Cyanosis Psychiatric: Reports: No Symptoms. Denies: Confusion, Mood Lability Neurological: Reports: No Symptoms Hematologic/Lymphatic: Reports: No Symptoms Immunologic: Reports: No Symptoms Exam - Exam Exam: See Below - Vital Signs Vital Signs: Last Vital Signs Temp 97.5 F 04/02/19 07:30 Pulse 76 04/02/19 07:30 Resp 16 04/02/19 07:30 BP 148/86 H 04/02/19 07:30 Pulse Ox 95 04/02/19 07:30 Weight: 152 lb 1.903 oz - Exam Quality Assessment: Supplemental Oxygen, DVT Prophylaxis General: Alert, Oriented, Cooperative. No: Mild Distress HEENT: Conjunctiva Clear, EACs Clear, EOMI, Hearing Intact, Mucosa Moist & [place] , Nares Patent, Normal Nasal Septum, Posterior Pharynx Clear. No: TMs Clear, PERRLA Neck: Supple, Trachea Midline Lungs: Clear to Auscultation, Normal Respiratory Effort Cardiovascular: Regular Rate, Regular Rhythm GI/Abdominal Exam: Normal Bowel Sounds, Soft, Non-Tender, No Distention, No Abnormal Bruit (Female) Exam: Deferred Rectal (Female) Exam: Deferred Back Exam: Normal Inspection, Full Range of Motion Extremities: No Pedal Edema, Normal Capillary Refill, Leg Pain, Limited Range of Motion, Other (Bandage in place on right leg. Bandage is dry and intact. Cooling pack in place. ) Peripheral Pulses: 2+: Radial (L), Radial (R), Dorsalis Pedis (L), Dorsalis Pedis (R) Skin: Warm, Dry, Intact Neurological: Cranial Nerves Intact (Grossly ) Neuro Extensive - Mental Status: Alert, Oriented x3 Psychiatric: Alert, Normal Affect, Normal Mood. No: Labile Mood, Agitated - Patient Data Lab Results Last 24 hrs: Laboratory Results - last 24 hr 04/02/19 04/02/19 04/02/19 Range/Units 07:40 07:40 07:40 WBC 7.25 (3.98-10.04) K/mm3 RBC 4.34 (3.98-5.22) M/mm3 Hgb 11.9 (11.2-15.7) gm/L Hct 36.6 (34.1-44.9) % MCV 84.3 (79.4-94.8) fl MCH 27.4 (25.6-32.2) pg MCHC 32.5 (32.2-35.5) g/dl RDW Std Deviation 42.9 (36.4-46.3) fL Plt Count 219 (182-369) K/mm3 MPV 11.0 (9.4-12.3) fl Neut % (Auto) 67.1 (34.0-71.1) % Lymph % (Auto) 15.9 L (19.3-51.7) % [place] % (Auto) 12.7 H (4.7-12.5) % Eos % (Auto) 3.6 (0.7-5.8) Baso % (Auto) 0.4 (0.1-1.2) % Neut # (Auto) 4.87 (1.56-6.13) K/mm3 Lymph # (Auto) 1.15 L (1.18-3.74) K/mm3 [place] # (Auto) 0.92 H (0.24-0.36) K/mm3 Eos # (Auto) 0.26 (0.04-0.36) K/mm3 Baso # (Auto) 0.03 (0.01-0.08) K/mm3 PT 10.9 (9.5-12.1) SECONDS INR 1.00 Sodium 141 (136-145) mEq/L Potassium 4.1 (3.5-5.1) mEq/L Chloride 106 (98-107) mEq/L Carbon Dioxide 23 (21-32) mEq/L Anion Gap 16.1 H (5-15) BUN 39 H (7-18) mg/dL Creatinine 1.9 H (0.55-1.02) mg/dL Est Cr Clr Drug Dosing 19.21 mL/min Estimated GFR (MDRD) 25 (>60) mL/min BUN/Creatinine Ratio 20.5 H (14-18) Glucose 99 (83-115) mg/dL Calcium 9.2 (8.5-10.1) mg/dL Result Diagrams: 04/02/19 07:40 04/02/19 07:40 Consult PN Assessment/Plan POD#: 0 Procedures: Procedures ANTINUCLEAR ANTIBODIES (06/23/18) ASSAY NEPHELOMETRY NOT SPEC (06/23/18) ASSAY OF AMYLASE (01/15/15) ASSAY OF BLOOD/URIC ACID (06/23/18) ASSAY OF CREATININE (01/03/15) ASSAY OF FERRITIN (06/23/18) ASSAY OF IRON (06/23/18) ASSAY OF LIPASE (10/19/17) ASSAY OF PARATHORMONE (06/23/18) ASSAY OF PROTEIN URINE (06/23/18) ASSAY OF TRANSFERRIN (06/23/18) ASSAY OF TROPONIN QUANT (10/19/17) ASSAY OF URINE CREATININE (06/23/18) C-REACTIVE PROTEIN (10/19/17) CARDIOVASCULAR STRESS TEST (09/24/16) CHEST X-RAY 1 VIEW FRONTAL (01/15/15) COMP SCREEN MAMMOGRAM ADD-ON (06/14/16) COMPLEMENT ANTIGEN (06/23/18) COMPLETE CBC W/AUTO DIFF WBC (10/11/18) COMPREHEN METABOLIC PANEL (10/19/17) CT ABD & PELVIS W/O CONTRAST (01/26/16) CULTURE AEROBIC IDENTIFY (08/03/14) ELECTROCARDIOGRAM TRACING (01/15/15) EMERGENCY DEPT VISIT (09/07/18) EMERGENCY DEPT VISIT (10/19/17) EMERGENCY DEPT VISIT (10/17/17) FLUORESCENT ANTIBODY TITER (06/23/18) HIV-1 AG IA (06/23/18) HT MUSCLE IMAGE SPECT MULT (09/24/16) HYDRATE IV INFUSION ADD-ON (10/19/17) IMMUNOASSAY QUANT NOS NONAB (06/23/18) MICROBE SUSCEPTIBLE PETER (03/27/18) MRI JOINT UPR EXTREM W/O DYE (05/24/14) OFFICE/OUTPATIENT VISIT EST (03/27/18) OT EVALUATION (07/16/14) PROTEIN E-PHORESIS/URINE/CSF (06/23/18) PROTHROMBIN TIME (10/19/17) RENAL FUNCTION PANEL (10/11/18) ROUTINE VENIPUNCTURE (10/11/18) SELF CARE MNGMENT TRAINING (07/16/14) THER/PROPH/DIAG INJ IV PUSH (10/19/17) THER/PROPH/DIAG INJ SC/IM (09/07/18) THERAPEUTIC ACTIVITIES (08/14/14) THERAPEUTIC EXERCISES (08/14/14) ULTRASOUND THERAPY (07/16/14) URINALYSIS AUTO W/O SCOPE (02/26/15) URINALYSIS AUTO W/SCOPE (06/23/18) URINE BACTERIA CULTURE (03/27/18) URINE CULTURE/COLONY COUNT (03/27/18) US EXAM ABDO BACK WALL DANIELS (06/30/18) VITAMIN D 25 HYDROXY (06/23/18) X-RAY EXAM KNEE 4 OR MORE (09/07/18) X-RAY EXAM OF ANKLE (05/02/18) X-RAY EXAM SERIES ABDOMEN (10/19/17) (1) S/P total knee arthroplasty SNOMED Code(s): 6381039605990, 632696516, 6889191740508 Code(s): Z96.659 - PRESENCE OF UNSPECIFIED ARTIFICIAL KNEE JOINT Priority: High Current Visit: Yes Qualifiers: Laterality: right Qualified Code(s): Z96.651 - Presence of right artificial knee joint (2) HTN (hypertension) SNOMED Code(s): 60563887 Code(s): I10 - ESSENTIAL (PRIMARY) HYPERTENSION Priority: Medium Current Visit: No Qualifiers: Hypertension type: unspecified Qualified Code(s): I10 - Essential (primary ) hypertension (3) HLD (hyperlipidemia) SNOMED Code(s): 83486903 Code(s): E78.5 - HYPERLIPIDEMIA, UNSPECIFIED Priority: Low Current Visit : No Qualifiers: Hyperlipidemia type: unspecified Qualified Code(s): E78.5 - Hyperlipidemia , unspecified (4) CAD (coronary artery disease) SNOMED Code(s): 08298349 Code(s): I25.10 - ATHSCL HEART DISEASE OF [place] CORONARY ARTERY W/O ANG PCTRS Priority: Medium Current Visit: No Qualifiers: Coronary Disease-Associated Artery/Lesion type: unspecified vessel or lesion type [place] vs. transplanted heart: [place] heart Associated angina: angina presence unspecified Qualified Code(s): I25.10 - Atherosclerotic heart disease of [place] coronary artery without angina pectoris (5) Hypothyroidism SNOMED Code(s): 39207789 Code(s): E03.9 - HYPOTHYROIDISM, UNSPECIFIED Priority: Low Current Visit : No Qualifiers: Hypothyroidism type: unspecified Qualified Code(s): E03.9 - Hypothyroidism , unspecified (6) Osteopenia SNOMED Code(s): 548394294 Code(s): M85.80 - OTH DISRD OF BONE DENSITY AND STRUCTURE, UNSPECIFIED SITE Priority: Low Current Visit: No Qualifiers: Osteopenia location: unspecified Qualified Code(s): M85.80 - Other specified disorders of bone density and structure, unspecified site (7) H/O parathyroidectomy SNOMED Code(s): 670516276746947, 008083095793699 Code(s): Z98.890 - OTHER SPECIFIED POSTPROCEDURAL STATES Priority: Low Current Visit: No (8) Iron deficiency anemia SNOMED Code(s): 30569413 Code(s): D50.9 - IRON DEFICIENCY ANEMIA, UNSPECIFIED Priority: Medium Current Visit: No Qualifiers: Iron deficiency anemia type: unspecified iron deficiency Qualified Code(s) : D50.9 - Iron deficiency anemia, unspecified (9) Chronic migraine SNOMED Code(s): 327653804 Code(s): G43.709 - CHRONIC MIGRAINE W/O AURA, NOT INTRACTABLE, W/O STAT MIGR Priority: Low Current Visit: No (10) IBS (irritable bowel syndrome) SNOMED Code(s): 21945949 Code(s): K58.9 - IRRITABLE BOWEL SYNDROME WITHOUT DIARRHEA Priority: Medium Current Visit: No Qualifiers: Irritable bowel syndrome type: unspecified Qualified Code(s): K58.9 - Irritable bowel syndrome without diarrhea (11) Crohns disease SNOMED Code(s): 88395521 Code(s): K50.90 - CROHN'S DISEASE, UNSPECIFIED, WITHOUT COMPLICATIONS Priority: Low Current Visit: No Qualifiers: Gastrointestinal tract location: unspecified location Digestive disease complication type: unspecified complication Qualified Code(s): K50.919 - Crohn 's disease, unspecified, with unspecified complications (12) Bipolar 1 disorder SNOMED Code(s): 630048399 Code(s): F31.9 - BIPOLAR DISORDER, UNSPECIFIED Priority: Low Current Visit: No (13) Chronic GERD SNOMED Code(s): 912140797, 694840219 Code(s): K21.9 - GASTRO-ESOPHAGEAL REFLUX DISEASE WITHOUT ESOPHAGITIS Priority: Low Current Visit: No (14) Elevated serum creatinine SNOMED Code(s): 823434461 Code(s): R79.89 - OTHER SPECIFIED ABNORMAL FINDINGS OF BLOOD CHEMISTRY Priority: Medium Current Visit: Yes (15) Osteoarthritis of right knee SNOMED Code(s): 428927893553075 Code(s): M17.11 - UNILATERAL PRIMARY OSTEOARTHRITIS, RIGHT KNEE Priority: High Current Visit: Yes Qualifiers: Osteoarthritis type: primary Qualified Code(s): M17.11 - Unilateral primary osteoarthritis, right knee (16) Renal insufficiency SNOMED Code(s): 155584729, 776457582 Code(s): N28.9 - DISORDER OF KIDNEY AND URETER, UNSPECIFIED Priority: High Current Visit: Yes Problem List Initiated/Reviewed/Updated: Yes Plan: I/P: Acute: S/P right total knee arthroplasty - post-operative day 0 -DVT prophylaxis and pain management per primary care team -PT/OT -IS/RT -Monitor oxygen saturation -Titrate oxygen as needed -Home medications reviewed -Vital signs stable -Monitor labs -Pre-operative Hgb was 11.7 -Pre-operative GFR was 24 -Pre-operative creatinine was 2.0 -Pre-operative BUN was 24 -Pre-operative 12-lead EKG shows sinus rhythm with RBBB and LAFB Osteoarthritis of right knee -Pain management per primary care team Chronic: Stage IV CKD HTN HLD CAD Hypothyroidism GERD Osteopenia Parathyroidectomy Iron deficiency anemia Migraines Varicose Veins Chronic Diarrhea IBS Crohn's Disease, [place] neuropathy, Anxiety, Bipolar disorder, depression, osteopenia, DJD Plan: CM for discharge planning GI prophylaxis Home medications as indicated Other orders as listed above Routine AM labs She is a full code. Her PCP is Dr. Winchester. 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 It is felt she will benefit from a SNF rehab stay after discharge. It is also felt she will only require these services for 30 days or less. Thank you for allowing us to participate in the care of this patient!! Requesting Provider: Dr. Lu Patient History Reviewed: Yes Admission H&P Reviewed: Yes Time Spent (in minutes): 40
[2019-04-02] MEDS ORDERED: HYDROmorphone 0.5 MG/0.5 ML Syringe ONE ×4 (09:53→10:41)
[2019-04-02] MEDS ORDERED: EPINEPHrine 0.3 MG/0.3 ML Pen Autoinjector IM PRN (10:46)
[2019-04-02] MEDS ORDERED: Loperamide 2 MG Cap PO PRN (10:46)
[2019-04-02] MEDS ORDERED: Diclofenac Sodium 1% Gel 100 GM Tube TOP PRN (10:46)
[2019-04-02] MEDS ORDERED: Psyllium Husk Powder Sugar Free 3.4 GM Packet PO PRN (10:46)
[2019-04-02] MEDS ORDERED: MOMETASONE FUROATE TOP PRN (10:46)
--- NOTE | 2019-04-02 10:53 | PCM.POSTAN ---
POST ANESTHESIA ASSESSMENT - MENTAL STATUS Mental Status: Alert - RESPIRATORY Respiratory Status: Respiratory Rate WNL, Airway Patent, O2 Saturation Stable - CARDIOVASCULAR CV Status: Pulse Rate WNL, Blood Pressure Stable - GASTROINTESTINAL GI Status: No Symptoms - POST OP HYDRATION Hydration Status: Adequate & Stable
--- NOTE | 2019-04-02 11:04 | PCM.SN ---
- Free Text/Narrative Note: Right selective femoral nerve block at the adductor canal for post-procedure pain control Time Out: 1049 Start: 1049 End: 1057 Chart reviewed. Consent signed. Questions answered. Appropriate monitors applied. Time out performed. Right mid-shaft femur evaluated with ultrasound. Scanning medially femur, I was able to identify the femoral artery in the adductor canal. The saphenous nerve was lateral to the artery. The skin was prepped lateral to the ultrasound probe with chlorahexadine. The 21ga 4 insulated block needle was inserted under direct ultrasound guidance into the adductor canal. 20mL of 0.5% ropivacaine with 1:200,000 epinephrine was injected cirmcumferentially about the nerve with intermittent negative aspiration every 5mL. Patient tolerated the procedure well. See pictures on progress note and vital signs on nurses notes. Block completed postoperatively. Faviola Vernon GRAPHIC DESIGN TEACHER
[2019-04-02] MEDS ORDERED: Meperidine 50 MG/ML Vial IVPUSH PRN (11:15)
--- NOTE | 2019-04-02 11:45 | CR ---
Right knee: AP and lateral views of the right knee were obtained. Comparison: Previous right knee radiographic study of 09/07/18. Knee prosthesis is seen. Components are aligned. Soft tissue air is noted from the surgical procedure. Underlying bony structures are intact. Impression: 1. Satisfactory appearance of recently placed right knee prosthesis. Diagnostic code #2
[2019-04-02] MEDS: Ondansetron 4 MG/2 ML SDV IVPUSH PRN ×2 (13:40→20:36)
[2019-04-02] MEDS: Acetaminophen/HYDROcodone 325-5 MG Tab PO PRN (13:40)
[2019-04-02] MEDS: ceFAZolin 2 GM in Premix Bag 1 BAG IV SCH ×2 (13:59→22:28)
[2019-04-02] MEDS ORDERED: LORazepam 0.5 MG Tab PO ONE (14:30)
[2019-04-02] MEDS: Sodium Bicarbonate 650 MG Tab PO SCH (20:40)
[2019-04-02] MEDS: Docusate Sodium 100 MG Cap PO SCH (20:40)
[2019-04-02] MEDS: LORazepam 1 MG Tab PO SCH (20:43)
[2019-04-02] MEDS ORDERED: LORazepam 1 MG Tab PO SCH (21:00)
[2019-04-02] MEDS: HYDROmorphone 0.5 MG/0.5 ML Syringe IVPUSH PRN (21:48)
[2019-04-03] MEDS: HYDROmorphone 0.5 MG/0.5 ML Syringe IVPUSH PRN (00:24)
[2019-04-03] MEDS: Acetaminophen/HYDROcodone 325-5 MG Tab PO PRN ×6 (04:55→23:50)
[2019-04-03] MEDS: ceFAZolin 2 GM in Premix Bag 1 BAG IV SCH (06:05)
[2019-04-03] MEDS ORDERED: Magnesium Sulfate/Water 2 GM in Premix Bag 1 BAG IV ONE (06:24)
--- NOTE | 2019-04-03 06:45 | PCM.CONSN ---
- General Info Date of Service: 04/03/19 Admission Dx/Problem (Free Text): Admission Diagnosis/Problem Admission Diagnosis/Problem Osteoarthritis of knee Subjective Update: 04/03/19: In to see Rossy. Functional Status: Reports: Pain Controlled, Tolerating Diet, Ambulating, Urinating. Denies: New Symptoms - Review of Systems General: Reports: No Symptoms. Denies: Fever, Chills HEENT: Reports: No Symptoms. Denies: Headaches, Sore Throat Pulmonary: Reports: No Symptoms. Denies: Shortness of Breath, Cough, Sputum, Wheezing Cardiovascular: Reports: No Symptoms. Denies: Chest Pain, Palpitations Gastrointestinal: Reports: No Symptoms. Denies: Abdominal Pain, Constipation, Diarrhea, Nausea, Vomiting Genitourinary: Reports: No Symptoms. Denies: Pain Musculoskeletal: Reports: Leg Pain Skin: Reports: No Symptoms Neurological: Reports: Confusion (baseline - waxes and wanes ) - Patient Data Vitals - Most Recent: Last Vital Signs Temp 98.2 F 04/03/19 03:46 Pulse 98 04/03/19 03:46 Resp 20 04/03/19 03:46 BP 162/78 H 04/03/19 03:46 Pulse Ox 94 L 04/03/19 03:46 Weight - Most Recent: 153 lb I&O - Last 24 Hours: Intake & Output 04/02/19 04/02/19 04/03/19 14:59 22:59 06:59 Intake Total 650 420 200 Output Total 300 1450 Balance 650 120 -1250 Lab Results Last 24 Hours: Laboratory Results - last 24 hr 04/02/19 04/02/19 04/02/19 Range/Units 07:40 07:40 07:40 WBC 7.25 (3.98-10.04) K/mm3 RBC 4.34 (3.98-5.22) M/mm3 Hgb 11.9 (11.2-15.7) gm/L Hct 36.6 (34.1-44.9) % MCV 84.3 (79.4-94.8) fl MCH 27.4 (25.6-32.2) pg MCHC 32.5 (32.2-35.5) g/dl RDW Std Deviation 42.9 (36.4-46.3) fL Plt Count 219 (182-369) K/mm3 MPV 11.0 (9.4-12.3) fl Neut % (Auto) 67.1 (34.0-71.1) % Lymph % (Auto) 15.9 L (19.3-51.7) % [place] % (Auto) 12.7 H (4.7-12.5) % Eos % (Auto) 3.6 (0.7-5.8) Baso % (Auto) 0.4 (0.1-1.2) % Neut # (Auto) 4.87 (1.56-6.13) K/mm3 Lymph # (Auto) 1.15 L (1.18-3.74) K/mm3 [place] # (Auto) 0.92 H (0.24-0.36) K/mm3 Eos # (Auto) 0.26 (0.04-0.36) K/mm3 Baso # (Auto) 0.03 (0.01-0.08) K/mm3 PT 10.9 (9.5-12.1) SECONDS INR 1.00 Sodium 141 (136-145) mEq/L Potassium 4.1 (3.5-5.1) mEq/L Chloride 106 (98-107) mEq/L Carbon Dioxide 23 (21-32) mEq/L Anion Gap 16.1 H (5-15) BUN 39 H (7-18) mg/dL Creatinine 1.9 H (0.55-1.02) mg/dL Est Cr Clr Drug Dosing 19.21 mL/min Estimated GFR (MDRD) 25 (>60) mL/min BUN/Creatinine Ratio 20.5 H (14-18) Glucose 99 (83-115) mg/dL Calcium 9.2 (8.5-10.1) mg/dL Magnesium (1.8-2.4) mg/dl Total Bilirubin (0.2-1.0) mg/dL AST (15-37) U/L ALT (14-59) U/L Alkaline Phosphatase (46-116) U/L Total Protein (6.4-8.2) g/dl Albumin (3.4-5.0) g/dl Globulin gm/dL Albumin/Globulin Ratio (1-2) 04/03/19 04/03/19 Range/Units 05:30 05:30 WBC 11.23 H (3.98-10.04) K/mm3 RBC 3.98 (3.98-5.22) M/mm3 Hgb 10.9 L (11.2-15.7) gm/L Hct 34.7 (34.1-44.9) % MCV 87.2 (79.4-94.8) fl MCH 27.4 (25.6-32.2) pg MCHC 31.4 L (32.2-35.5) g/dl RDW Std Deviation 45.1 (36.4-46.3) fL Plt Count 221 (182-369) K/mm3 MPV 10.9 (9.4-12.3) fl Neut % (Auto) 79.9 H (34.0-71.1) % Lymph % (Auto) 5.3 L (19.3-51.7) % [place] % (Auto) 14.5 H (4.7-12.5) % Eos % (Auto) 0 L (0.7-5.8) Baso % (Auto) 0.1 (0.1-1.2) % Neut # (Auto) 8.97 H (1.56-6.13) K/mm3 Lymph # (Auto) 0.60 L (1.18-3.74) K/mm3 [place] # (Auto) 1.63 H (0.24-0.36) K/mm3 Eos # (Auto) 0.00 L (0.04-0.36) K/mm3 Baso # (Auto) 0.01 (0.01-0.08) K/mm3 PT (9.5-12.1) SECONDS INR Sodium 146 H (136-145) mEq/L Potassium 4.3 (3.5-5.1) mEq/L Chloride 111 H (98-107) mEq/L Carbon Dioxide 22 (21-32) mEq/L Anion Gap 17.3 H (5-15) BUN 31 H (7-18) mg/dL Creatinine 2.0 H (0.55-1.02) mg/dL Est Cr Clr Drug Dosing 18.25 mL/min Estimated GFR (MDRD) 24 (>60) mL/min BUN/Creatinine Ratio 15.5 (14-18) Glucose 137 H (83-115) mg/dL Calcium 8.7 (8.5-10.1) mg/dL Magnesium 1.6 L (1.8-2.4) mg/dl Total Bilirubin 0.4 (0.2-1.0) mg/dL AST 22 (15-37) U/L ALT 10 L (14-59) U/L Alkaline Phosphatase 74 (46-116) U/L Total Protein 6.5 (6.4-8.2) g/dl Albumin 3.2 L (3.4-5.0) g/dl Globulin 3.3 gm/dL Albumin/Globulin Ratio 1.0 (1-2) Med Orders - Current: Current Medications Hydrocodone Bitart/Acetaminophen ([place] 325-5 Mg) 1 - 2 tab PO Q4H PRN PRN Reason: Pain Last Admin: 04/03/19 04:55 Dose: 1 tab Aripiprazole (Abilify) 2.5 mg PO DAILY [facility] Aspirin (Halfprin) 81 mg PO BID JAY Bisacodyl (Dulcolax) 5 mg PO DAILY PRN PRN Reason: Constipation Cholecalciferol (Vitamin D3) 5,000 unit PO DAILY [facility] Docusate Sodium (Colace) 100 mg PO BID [facility] Last Admin: 04/02/19 20:40 Dose: Not Given Hydromorphone HCl (Dilaudid) 0.2 mg IVPUSH Q2H PRN PRN Reason: Pain (moderate 4-6) Last Admin: 04/03/19 00:24 Dose: 0.2 mg Cefazolin Sodium/Dextrose 2 gm (/ Premix) 50 mls @ 100 mls/hr IV Q8H [facility] Stop: 04/03/19 07:29 Last Admin: 04/03/19 06:05 Dose: 100 mls/hr Magnesium Sulfate 2 gm/ Premix 50 mls @ 25 mls/hr IV ONETIME ONE Stop: 04/03/19 08:23 Levothyroxine Sodium (Levothyroxine) 25 mcg PO DAILY [facility] Loperamide HCl (Imodium) 2 mg PO ASDIRECTED PRN PRN Reason: Diarrhea Lorazepam (Ativan) 0.5 mg PO DAILY [facility] Lorazepam (Ativan) 1 mg PO BEDTIME [facility] Last Admin: 04/02/19 20:43 Dose: 1 mg Metoprolol Succinate (Toprol Xl) 25 mg PO DAILY [facility] Naloxone HCl (Narcan) 0.1 mg IVPUSH Q5M PRN PRN Reason: Oversedation Ondansetron HCl (Zofran) 4 mg IVPUSH Q6H PRN PRN Reason: Nausea/Vomiting Last Admin: 04/02/19 20:36 Dose: 4 mg Pantoprazole Sodium (Protonix) 40 mg PO DAILY [facility] Polysaccharide Iron Complex (Ferrex 150) 150 mg PO DAILY [facility] Psyllium Husk (Metamucil Sugar Free) 1 packet PO DAILY PRN PRN Reason: Constipation Senna (Senna) 8.6 mg PO BID PRN PRN Reason: Constipation Sodium Bicarbonate (Sodium Bicarbonate) 325 mg PO BID [facility] Last Admin: 04/02/19 20:40 Dose: Not Given Discontinued Medications Bupivacaine HCl (Marcaine 0.25%) Confirm Administered Dose 30 ml .ROUTE .STK- MED ONE Stop: 04/02/19 07:16 Last Admin: 04/02/19 09:56 Dose: 20 ml Cefazolin Sodium (Ancef) Confirm Administered Dose 2 gm .ROUTE .STK-MED ONE Stop: 04/02/19 07:16 Last Admin: 04/02/19 09:51 Dose: 2 gm Cefazolin Sodium (Ancef) Confirm Administered Dose 1 gm .ROUTE .STK-MED ONE Stop: 04/02/19 07:22 Cefazolin Sodium (Ancef) Confirm Administered Dose 1 gm .ROUTE .STK-MED ONE Stop: 04/02/19 07:46 Clindamycin Phosphate (Cleocin) Confirm Administered Dose 900 mg .ROUTE .STK- MED ONE Stop: 04/02/19 07:15 Morphine Sulfate 8 mg/Epinephrine HCl 0.3 mg/Cefuroxime Sodium 750 mg/Sodium Chloride 28.9 ml 0 mg .XX ONETIME ONE Stop: 04/02/19 09:31 Last Admin: 04/02/19 19:46 Dose: Not Given Cyclobenzaprine HCl (Flexeril) 10 mg PO TID PRN PRN Reason: Spasms Diclofenac Sodium (Voltaren 1% Gel) gm TOP QID PRN PRN Reason: Pain Epinephrine HCl (Adrenalin) Confirm Administered Dose 1 mg .ROUTE .STK-MED ONE Stop: 04/02/19 07:42 Epinephrine HCl (Epipen) mg IM ONETIME PRN PRN Reason: anaphylaxis Fentanyl (Sublimaze) Confirm Administered Dose 100 mcg .ROUTE .STK-MED ONE Stop: 04/02/19 07:22 Fentanyl (Sublimaze) Confirm Administered Dose 100 mcg .ROUTE .ST-MED ONE Stop: 04/02/19 08:51 Fentanyl (Sublimaze) Confirm Administered Dose 100 mcg .ROUTE .STK-MED ONE Stop: 04/02/19 10:42 Glycopyrrolate () Confirm Administered Dose 1 mg .ROUTE .[facility] ONE Stop: 04/02/19 08:55 Hydromorphone HCl (Dilaudid) Confirm Administered Dose 0.5 mg .ROUTE .STK-MED ONE Stop: 04/02/19 09:54 Hydromorphone HCl (Dilaudid) Confirm Administered Dose 0.5 mg .ROUTE .ST-MED ONE Stop: 04/02/19 09:55 Hydromorphone HCl (Dilaudid) Confirm Administered Dose 0.5 mg .ROUTE .[facility]-MED ONE Stop: 04/02/19 10:41 Hydromorphone HCl (Dilaudid) Confirm Administered Dose 0.5 mg .ROUTE .[facility] ONE Stop: 04/02/19 10:42 Lactated Ringer's (Ringers, Lactated) 1,000 mls @ 125 mls/hr IV ASDIRECTED [facility] Stop: 04/02/19 23:00 Sodium Chloride (Normal Saline) 1,000 mls @ 125 mls/hr IV ASDIRECTED [facility] Stop: 04/02/19 23:00 Last Admin: 04/02/19 13:35 Dose: 125 mls/hr Iodine (Iodine 2% Mild Tincture) Confirm Administered Dose 30 ml .ROUTE .ST- MED ONE Stop: 04/02/19 07:16 Last Admin: 04/02/19 09:48 Dose: 18 ml Labetalol HCl (Normodyne) Confirm Administered Dose 100 mg .ROUTE .STK-MED ONE Stop: 04/02/19 09:20 Lidocaine/Sodium Bicarbonate (Buffered Lidocaine 1% In Ns 8.4%) 0.25 ml IDERM ONETIME PRN PRN Reason: Prior to IV Start Stop: 04/02/19 18:00 Last Admin: 04/02/19 07:40 Dose: 0.25 ml Lorazepam (Ativan) 0.5 mg PO ONETIME ONE Stop: 04/02/19 14:31 Last Admin: 04/02/19 15:11 Dose: 0.5 mg Meperidine HCl (Meperidine) 25 mg IVPUSH ONETIME PRN PRN Reason: Tremors Stop: 04/02/19 14:00 Last Admin: 04/02/19 11:30 Dose: 25 mg Midazolam HCl (Versed 1 Mg/Ml) Confirm Administered Dose 2 mg .ROUTE .STK-MED ONE Stop: 04/02/19 08:48 Non-Formulary Medication (Mometasone Furoate [Elocon]) 1 dose TOP ASDIRECTED PRN PRN Reason: skin complications Ondansetron HCl (Zofran) Confirm Administered Dose 4 mg .ROUTE .STK-MED ONE Stop: 04/02/19 09:22 Phenylephrine HCl (Phenylephrine In Ns 100 Mcg/Ml) Confirm Administered Dose 1 mg .ROUTE .STK-MED ONE Stop: 04/02/19 08:52 Propofol (Diprivan 20 Ml) Confirm Administered Dose 200 mg .ROUTE .STK-MED ONE Stop: 04/02/19 08:41 Rocuronium Almond (Zemuron) Confirm Administered Dose 50 mg .ROUTE .STK-MED ONE Stop: 04/02/19 08:49 Ropivacaine (Naropin 0.5%) Confirm Administered Dose 30 ml .ROUTE .STK-MED ONE Stop: 04/02/19 07:42 Sodium Chloride (Saline Flush) 10 ml FLUSH ASDIRECTED PRN PRN Reason: Keep Vein Open Stop: 04/02/19 18:00 Tranexamic Acid (Cyklokapron) Confirm Administered Dose 1,000 mg .ROUTE .STK- MED ONE Stop: 04/02/19 07:15 Last Admin: 04/02/19 10:04 Dose: 1,000 mg Vancomycin HCl (Vancomycin) Confirm Administered Dose 1 gm .ROUTE .STK-MED ONE Stop: 04/02/19 07:15 Last Admin: 04/02/19 09:59 Dose: 1 gm - Exam Quality Assessment: DVT Prophylaxis General: Alert, Oriented, Cooperative, No Acute Distress, Other (She has had some mild confusion which waxes and wanes per nursing. ) HEENT: Pupils Equal, Pupils Reactive, EOMI, Mucous Membr. Moist/[place] Neck: Supple, Trachea Midline Lungs: Clear to Auscultation, Normal Respiratory Effort Cardiovascular: Regular Rate, Regular Rhythm GI/Abdominal Exam: Normal Bowel Sounds, Soft, Non-Tender, No Distention, No Abnormal Bruit (Female) Exam: Deferred Back Exam: Normal Inspection, Full Range of Motion Extremities: No Pedal Edema, Normal Capillary Refill, Leg Pain, Limited Range of Motion, Other (Bandage in place on right leg. Cooling pack in place. ) Peripheral Pulses: 2+: Radial (L), Radial (R), Dorsalis Pedis (L), Dorsalis Pedis (R) Skin: Warm, Dry, Intact Neurological: No New Focal Deficit Psy/Mental Status: Alert Consult PN Assessment/Plan POD#: 1 Procedures: Procedures ANTINUCLEAR ANTIBODIES (06/23/18) ASSAY NEPHELOMETRY NOT SPEC (06/23/18) ASSAY OF AMYLASE (01/15/15) ASSAY OF BLOOD/URIC ACID (06/23/18) ASSAY OF CREATININE (01/03/15) ASSAY OF FERRITIN (06/23/18) ASSAY OF IRON (06/23/18) ASSAY OF LIPASE (10/19/17) ASSAY OF PARATHORMONE (06/23/18) ASSAY OF PROTEIN URINE (06/23/18) ASSAY OF TRANSFERRIN (06/23/18) ASSAY OF TROPONIN QUANT (10/19/17) ASSAY OF URINE CREATININE (06/23/18) C-REACTIVE PROTEIN (10/19/17) CARDIOVASCULAR STRESS TEST (09/24/16) CHEST X-RAY 1 VIEW FRONTAL (01/15/15) COMP SCREEN MAMMOGRAM ADD-ON (06/14/16) COMPLEMENT ANTIGEN (06/23/18) COMPLETE CBC W/AUTO DIFF WBC (10/11/18) COMPREHEN METABOLIC PANEL (10/19/17) CT ABD & PELVIS W/O CONTRAST (01/26/16) CULTURE AEROBIC IDENTIFY (08/03/14) ELECTROCARDIOGRAM TRACING (01/15/15) EMERGENCY DEPT VISIT (09/07/18) EMERGENCY DEPT VISIT (10/19/17) EMERGENCY DEPT VISIT (10/17/17) FLUORESCENT ANTIBODY TITER (06/23/18) HIV-1 AG IA (06/23/18) HT MUSCLE IMAGE SPECT MULT (09/24/16) HYDRATE IV INFUSION ADD-ON (10/19/17) IMMUNOASSAY QUANT NOS NONAB (06/23/18) MICROBE SUSCEPTIBLE PETER (03/27/18) MRI JOINT UPR EXTREM W/O DYE (05/24/14) OFFICE/OUTPATIENT VISIT EST (03/27/18) OT EVALUATION (07/16/14) PROTEIN E-PHORESIS/URINE/CSF (06/23/18) PROTHROMBIN TIME (10/19/17) RENAL FUNCTION PANEL (10/11/18) ROUTINE VENIPUNCTURE (10/11/18) SELF CARE MNGMENT TRAINING (07/16/14) THER/PROPH/DIAG INJ IV PUSH (10/19/17) THER/PROPH/DIAG INJ SC/IM (09/07/18) THERAPEUTIC ACTIVITIES (08/14/14) THERAPEUTIC EXERCISES (08/14/14) ULTRASOUND THERAPY (07/16/14) URINALYSIS AUTO W/O SCOPE (02/26/15) URINALYSIS AUTO W/SCOPE (06/23/18) URINE BACTERIA CULTURE (03/27/18) URINE CULTURE/COLONY COUNT (03/27/18) US EXAM ABDO BACK WALL DANIELS (06/30/18) VITAMIN D 25 HYDROXY (06/23/18) X-RAY EXAM KNEE 4 OR MORE (09/07/18) X-RAY EXAM OF ANKLE (05/02/18) X-RAY EXAM SERIES ABDOMEN (10/19/17) (1) S/P total knee arthroplasty SNOMED Code(s): 8309522956040, 401959417, 7927041060945 Code(s): Z96.659 - PRESENCE OF UNSPECIFIED ARTIFICIAL KNEE JOINT Priority: High Current Visit: Yes Qualifiers: Laterality: right Qualified Code(s): Z96.651 - Presence of right artificial knee joint (2) HTN (hypertension) SNOMED Code(s): 48764598 Code(s): I10 - ESSENTIAL (PRIMARY) HYPERTENSION Priority: Medium Current Visit: No Qualifiers: Hypertension type: unspecified Qualified Code(s): I10 - Essential (primary ) hypertension (3) HLD (hyperlipidemia) SNOMED Code(s): 87382283 Code(s): E78.5 - HYPERLIPIDEMIA, UNSPECIFIED Priority: Low Current Visit : No Qualifiers: Hyperlipidemia type: unspecified Qualified Code(s): E78.5 - Hyperlipidemia , unspecified (4) CAD (coronary artery disease) SNOMED Code(s): 11710717 Code(s): I25.10 - ATHSCL HEART DISEASE OF [place] CORONARY ARTERY W/O ANG PCTRS Priority: Medium Current Visit: No Qualifiers: Coronary Disease-Associated Artery/Lesion type: unspecified vessel or lesion type [place] vs. transplanted heart: [place] heart Associated angina: angina presence unspecified Qualified Code(s): I25.10 - Atherosclerotic heart disease of [place] coronary artery without angina pectoris (5) Hypothyroidism SNOMED Code(s): 63598564 Code(s): E03.9 - HYPOTHYROIDISM, UNSPECIFIED Priority: Low Current Visit : No Qualifiers: Hypothyroidism type: unspecified Qualified Code(s): E03.9 - Hypothyroidism , unspecified (6) Osteopenia SNOMED Code(s): 201902719 Code(s): M85.80 - OTH DISRD OF BONE DENSITY AND STRUCTURE, UNSPECIFIED SITE Priority: Low Current Visit: No Qualifiers: Osteopenia location: unspecified Qualified Code(s): M85.80 - Other specified disorders of bone density and structure, unspecified site (7) H/O parathyroidectomy SNOMED Code(s): 792494135176514, 702643223898547 Code(s): Z98.890 - OTHER SPECIFIED POSTPROCEDURAL STATES Priority: Low Current Visit: No (8) Iron deficiency anemia SNOMED Code(s): 25319825 Code(s): D50.9 - IRON DEFICIENCY ANEMIA, UNSPECIFIED Priority: Medium Current Visit: No Qualifiers: Iron deficiency anemia type: unspecified iron deficiency Qualified Code(s) : D50.9 - Iron deficiency anemia, unspecified (9) Chronic migraine SNOMED Code(s): 370410139 Code(s): G43.709 - CHRONIC MIGRAINE W/O AURA, NOT INTRACTABLE, W/O STAT MIGR Priority: Low Current Visit: No (10) IBS (irritable bowel syndrome) SNOMED Code(s): 43835673 Code(s): K58.9 - IRRITABLE BOWEL SYNDROME WITHOUT DIARRHEA Priority: Medium Current Visit: No Qualifiers: Irritable bowel syndrome type: unspecified Qualified Code(s): K58.9 - Irritable bowel syndrome without diarrhea (11) Crohns disease SNOMED Code(s): 34228046 Code(s): K50.90 - CROHN'S DISEASE, UNSPECIFIED, WITHOUT COMPLICATIONS Priority: Low Current Visit: No Qualifiers: Gastrointestinal tract location: unspecified location Digestive disease complication type: unspecified complication Qualified Code(s): K50.919 - Crohn 's disease, unspecified, with unspecified complications (12) Bipolar 1 disorder SNOMED Code(s): 305973539 Code(s): F31.9 - BIPOLAR DISORDER, UNSPECIFIED Priority: Low Current Visit: No (13) Chronic GERD SNOMED Code(s): 579629748, 839322489 Code(s): K21.9 - GASTRO-ESOPHAGEAL REFLUX DISEASE WITHOUT ESOPHAGITIS Priority: Low Current Visit: No (14) Elevated serum creatinine SNOMED Code(s): 154917101 Code(s): R79.89 - OTHER SPECIFIED ABNORMAL FINDINGS OF BLOOD CHEMISTRY Priority: Medium Current Visit: Yes (15) Osteoarthritis of right knee SNOMED Code(s): 022214008569971 Code(s): M17.11 - UNILATERAL PRIMARY OSTEOARTHRITIS, RIGHT KNEE Priority: High Current Visit: Yes Qualifiers: Osteoarthritis type: primary Qualified Code(s): M17.11 - Unilateral primary osteoarthritis, right knee (16) Renal insufficiency SNOMED Code(s): 294808378, 564381614 Code(s): N28.9 - DISORDER OF KIDNEY AND URETER, UNSPECIFIED Priority: High Current Visit: Yes Problem List Initiated/Reviewed/Updated: Yes My Orders Last 24 Hours: My Active Orders 04/03/19 05:30 CBC WITH AUTO DIFF [HEME] AM 04/03/19 06:24 Magnesium Sulfate/Water [Magnesium Sulfate in Water Premix] 2 gm Premix Bag 1 bag IV ONETIME 04/04/19 05:11 CBC WITH AUTO DIFF [HEME] AM CMP [COMPREHENSIVE METABOLIC PN,CMP] [CHEM] AM MAGNESIUM [CHEM] AM 04/05/19 05:11 CBC WITH AUTO DIFF [HEME] AM CMP [COMPREHENSIVE METABOLIC PN,CMP] [CHEM] AM MAGNESIUM [CHEM] AM 04/06/19 05:11 CBC WITH AUTO DIFF [HEME] AM CMP [COMPREHENSIVE METABOLIC PN,CMP] [CHEM] AM MAGNESIUM [CHEM] AM Plan: I/P: Acute: S/P right total knee arthroplasty - post-operative day 1 -DVT prophylaxis and pain management per primary care team -PT/OT -IS/RT -Monitor oxygen saturation -Titrate oxygen as needed -Home medications reviewed -Vital signs stable -Monitor labs -Pre-operative Hgb was 11.7; Now 10.9 -Pre-operative GFR was 24; Now 24 -Pre-operative creatinine was 2.0; Now 2.0 -Pre-operative BUN was 24; Now 24 -Pre-operative 12-lead EKG shows sinus rhythm with RBBB and LAFB Osteoarthritis of right knee -Pain management per primary care team Chronic: Stage IV CKD HTN HLD CAD Hypothyroidism GERD Osteopenia Parathyroidectomy Iron deficiency anemia Migraines Varicose Veins Chronic Diarrhea IBS Crohn's Disease, [place] neuropathy, Anxiety, Bipolar disorder, depression, osteopenia, DJD Plan: CM for discharge planning GI prophylaxis Home medications as indicated Other orders as listed above Routine AM labs She is a full code. Her PCP is Dr. Winchester. Dr. Swenson is her emergency management consultant Currently Rossy resides in [facility] facility and it is felt she will require more care post-surgical. It is felt she will benefit from a SNF rehab stay after discharge. It is also felt she will only require these services for 30 days or less. LOS expected at 3 days pending placement. Thank you for allowing us to participate in the care of this patient!!
--- NOTE | 2019-04-03 07:56 | PCM.SURGPN ---
- General Info Date of Service: 04/03/19 POD#: 1 Functional Status: Reports: Pain Controlled, Tolerating Diet, Ambulating, Urinating, Incentive Spirometry, Other (The pt states she would like her IV out. Nursing states pt had c/o pain once last evening and 1 Eden provided with improvements noted.) - Patient Data Vitals - Most Recent: Last Vital Signs Temp 98.2 F 04/03/19 03:46 Pulse 98 04/03/19 03:46 Resp 20 04/03/19 03:46 BP 162/78 H 04/03/19 03:46 Pulse Ox 94 L 04/03/19 03:46 Weight - Most Recent: 153 lb I&O - Last 24 Hours: Intake & Output 04/02/19 04/03/19 04/03/19 22:59 06:59 14:59 Intake Total 420 200 Output Total 300 1450 Balance 120 -1250 Lab Results Last 24 Hrs: Laboratory Results - last 24 hr 04/02/19 04/02/19 04/03/19 Range/Units 07:40 07:40 05:30 WBC 11.23 H (3.98-10.04) K/mm3 RBC 3.98 (3.98-5.22) M/mm3 Hgb 10.9 L (11.2-15.7) gm/L Hct 34.7 (34.1-44.9) % MCV 87.2 (79.4-94.8) fl MCH 27.4 (25.6-32.2) pg MCHC 31.4 L (32.2-35.5) g/dl RDW Std Deviation 45.1 (36.4-46.3) fL Plt Count 221 (182-369) K/mm3 MPV 10.9 (9.4-12.3) fl Neut % (Auto) 79.9 H (34.0-71.1) % Lymph % (Auto) 5.3 L (19.3-51.7) % Gregory % (Auto) 14.5 H (4.7-12.5) % Eos % (Auto) 0 L (0.7-5.8) Baso % (Auto) 0.1 (0.1-1.2) % Neut # (Auto) 8.97 H (1.56-6.13) K/mm3 Lymph # (Auto) 0.60 L (1.18-3.74) K/mm3 Gregory # (Auto) 1.63 H (0.24-0.36) K/mm3 Eos # (Auto) 0.00 L (0.04-0.36) K/mm3 Baso # (Auto) 0.01 (0.01-0.08) K/mm3 Manual Slide Review Abnormal smear PT 10.9 (9.5-12.1) SECONDS INR 1.00 Sodium 141 (136-145) mEq/L Potassium 4.1 (3.5-5.1) mEq/L Chloride 106 (98-107) mEq/L Carbon Dioxide 23 (21-32) mEq/L Anion Gap 16.1 H (5-15) BUN 39 H (7-18) mg/dL Creatinine 1.9 H (0.55-1.02) mg/dL Est Cr Clr Drug Dosing 19.21 mL/min Estimated GFR (MDRD) 25 (>60) mL/min BUN/Creatinine Ratio 20.5 H (14-18) Glucose 99 (83-115) mg/dL Calcium 9.2 (8.5-10.1) mg/dL Magnesium (1.8-2.4) mg/dl Total Bilirubin (0.2-1.0) mg/dL AST (15-37) U/L ALT (14-59) U/L Alkaline Phosphatase (46-116) U/L Total Protein (6.4-8.2) g/dl Albumin (3.4-5.0) g/dl Globulin gm/dL Albumin/Globulin Ratio (1-2) 04/03/19 Range/Units 05:30 WBC (3.98-10.04) K/mm3 RBC (3.98-5.22) M/mm3 Hgb (11.2-15.7) gm/L Hct (34.1-44.9) % MCV (79.4-94.8) fl MCH (25.6-32.2) pg MCHC (32.2-35.5) g/dl RDW Std Deviation (36.4-46.3) fL Plt Count (182-369) K/mm3 MPV (9.4-12.3) fl Neut % (Auto) (34.0-71.1) % Lymph % (Auto) (19.3-51.7) % Gregory % (Auto) (4.7-12.5) % Eos % (Auto) (0.7-5.8) Baso % (Auto) (0.1-1.2) % Neut # (Auto) (1.56-6.13) K/mm3 Lymph # (Auto) (1.18-3.74) K/mm3 Gregory # (Auto) (0.24-0.36) K/mm3 Eos # (Auto) (0.04-0.36) K/mm3 Baso # (Auto) (0.01-0.08) K/mm3 Manual Slide Review PT (9.5-12.1) SECONDS INR Sodium 146 H (136-145) mEq/L Potassium 4.3 (3.5-5.1) mEq/L Chloride 111 H (98-107) mEq/L Carbon Dioxide 22 (21-32) mEq/L Anion Gap 17.3 H (5-15) BUN 31 H (7-18) mg/dL Creatinine 2.0 H (0.55-1.02) mg/dL Est Cr Clr Drug Dosing 18.25 mL/min Estimated GFR (MDRD) 24 (>60) mL/min BUN/Creatinine Ratio 15.5 (14-18) Glucose 137 H (83-115) mg/dL Calcium 8.7 (8.5-10.1) mg/dL Magnesium 1.6 L (1.8-2.4) mg/dl Total Bilirubin 0.4 (0.2-1.0) mg/dL AST 22 (15-37) U/L ALT 10 L (14-59) U/L Alkaline Phosphatase 74 (46-116) U/L Total Protein 6.5 (6.4-8.2) g/dl Albumin 3.2 L (3.4-5.0) g/dl Globulin 3.3 gm/dL Albumin/Globulin Ratio 1.0 (1-2) Med Orders - Current: Current Medications Hydrocodone Bitart/Acetaminophen (Eden 325-5 Mg) 1 - 2 tab PO Q4H PRN PRN Reason: Pain Last Admin: 04/03/19 04:55 Dose: 1 tab Aripiprazole (Abilify) 2.5 mg PO DAILY JAY Aspirin (Halfprin) 81 mg PO BID [facility] Bisacodyl (Dulcolax) 5 mg PO DAILY PRN PRN Reason: Constipation Cholecalciferol (Vitamin D3) 5,000 unit PO DAILY [facility] Docusate Sodium (Colace) 100 mg PO BID [facility] Last Admin: 04/02/19 20:40 Dose: Not Given Hydromorphone HCl (Dilaudid) 0.2 mg IVPUSH Q2H PRN PRN Reason: Pain (moderate 4-6) Last Admin: 04/03/19 00:24 Dose: 0.2 mg Magnesium Sulfate 2 gm/ Premix 50 mls @ 25 mls/hr IV ONETIME ONE Stop: 04/03/19 08:23 Levothyroxine Sodium (Levothyroxine) 25 mcg PO DAILY [facility] Loperamide HCl (Imodium) 2 mg PO ASDIRECTED PRN PRN Reason: Diarrhea Lorazepam (Ativan) 0.5 mg PO DAILY [facility] Lorazepam (Ativan) 1 mg PO BEDTIME [facility] Last Admin: 04/02/19 20:43 Dose: 1 mg Metoprolol Succinate (Toprol Xl) 25 mg PO DAILY [facility] Naloxone HCl (Narcan) 0.1 mg IVPUSH Q5M PRN PRN Reason: Oversedation Ondansetron HCl (Zofran) 4 mg IVPUSH Q6H PRN PRN Reason: Nausea/Vomiting Last Admin: 04/02/19 20:36 Dose: 4 mg Pantoprazole Sodium (Protonix) 40 mg PO DAILY [facility] Polysaccharide Iron Complex (Ferrex 150) 150 mg PO DAILY [facility] Psyllium Husk (Metamucil Sugar Free) 1 packet PO DAILY PRN PRN Reason: Constipation Senna (Senna) 8.6 mg PO BID PRN PRN Reason: Constipation Sodium Bicarbonate (Sodium Bicarbonate) 325 mg PO BID [facility] Last Admin: 04/02/19 20:40 Dose: Not Given Discontinued Medications Bupivacaine HCl (Marcaine 0.25%) Confirm Administered Dose 30 ml .ROUTE .STK- MED ONE Stop: 04/02/19 07:16 Last Admin: 04/02/19 09:56 Dose: 20 ml Cefazolin Sodium (Ancef) Confirm Administered Dose 2 gm .ROUTE .STK-MED ONE Stop: 04/02/19 07:16 Last Admin: 04/02/19 09:51 Dose: 2 gm Cefazolin Sodium (Ancef) Confirm Administered Dose 1 gm .ROUTE .STK-MED ONE Stop: 04/02/19 07:22 Cefazolin Sodium (Ancef) Confirm Administered Dose 1 gm .ROUTE .STK-MED ONE Stop: 04/02/19 07:46 Clindamycin Phosphate (Cleocin) Confirm Administered Dose 900 mg .ROUTE .STK- MED ONE Stop: 04/02/19 07:15 Morphine Sulfate 8 mg/Epinephrine HCl 0.3 mg/Cefuroxime Sodium 750 mg/Sodium Chloride 28.9 ml 0 mg .XX ONETIME ONE Stop: 04/02/19 09:31 Last Admin: 04/02/19 19:46 Dose: Not Given Cyclobenzaprine HCl (Flexeril) 10 mg PO TID PRN PRN Reason: Spasms Diclofenac Sodium (Voltaren 1% Gel) gm TOP QID PRN PRN Reason: Pain Epinephrine HCl (Adrenalin) Confirm Administered Dose 1 mg .ROUTE .STK-MED ONE Stop: 04/02/19 07:42 Epinephrine HCl (Epipen) mg IM ONETIME PRN PRN Reason: anaphylaxis Fentanyl (Sublimaze) Confirm Administered Dose 100 mcg .ROUTE .STK-MED ONE Stop: 04/02/19 07:22 Fentanyl (Sublimaze) Confirm Administered Dose 100 mcg .ROUTE .STK-MED ONE Stop: 04/02/19 08:51 Fentanyl (Sublimaze) Confirm Administered Dose 100 mcg .ROUTE .STK-MED ONE Stop: 04/02/19 10:42 Glycopyrrolate () Confirm Administered Dose 1 mg .ROUTE .STK-MED ONE Stop: 04/02/19 08:55 Hydromorphone HCl (Dilaudid) Confirm Administered Dose 0.5 mg .ROUTE .STK-MED ONE Stop: 04/02/19 09:54 Hydromorphone HCl (Dilaudid) Confirm Administered Dose 0.5 mg .ROUTE .STK-MED ONE Stop: 04/02/19 09:55 Hydromorphone HCl (Dilaudid) Confirm Administered Dose 0.5 mg .ROUTE .STK-MED ONE Stop: 04/02/19 10:41 Hydromorphone HCl (Dilaudid) Confirm Administered Dose 0.5 mg .ROUTE .STK-MED ONE Stop: 04/02/19 10:42 Lactated Ringer's (Ringers, Lactated) 1,000 mls @ 125 mls/hr IV ASDIRECTED [facility] Stop: 04/02/19 23:00 Cefazolin Sodium/Dextrose 2 gm (/ Premix) 50 mls @ 100 mls/hr IV Q8H [facility] Stop: 04/03/19 07:29 Last Admin: 04/03/19 06:05 Dose: 100 mls/hr Sodium Chloride (Normal Saline) 1,000 mls @ 125 mls/hr IV ASDIRECTED [facility] Stop: 04/02/19 23:00 Last Admin: 04/02/19 13:35 Dose: 125 mls/hr Iodine (Iodine 2% Mild Tincture) Confirm Administered Dose 30 ml .ROUTE .STK- MED ONE Stop: 04/02/19 07:16 Last Admin: 04/02/19 09:48 Dose: 18 ml Labetalol HCl (Normodyne) Confirm Administered Dose 100 mg .ROUTE .STK-MED ONE Stop: 04/02/19 09:20 Lidocaine/Sodium Bicarbonate (Buffered Lidocaine 1% In Ns 8.4%) 0.25 ml IDERM ONETIME PRN PRN Reason: Prior to IV Start Stop: 04/02/19 18:00 Last Admin: 04/02/19 07:40 Dose: 0.25 ml Lorazepam (Ativan) 0.5 mg PO ONETIME ONE Stop: 04/02/19 14:31 Last Admin: 04/02/19 15:11 Dose: 0.5 mg Meperidine HCl (Meperidine) 25 mg IVPUSH ONETIME PRN PRN Reason: Tremors Stop: 04/02/19 14:00 Last Admin: 04/02/19 11:30 Dose: 25 mg Midazolam HCl (Versed 1 Mg/Ml) Confirm Administered Dose 2 mg .ROUTE .STK-MED ONE Stop: 04/02/19 08:48 Non-Formulary Medication (Mometasone Furoate [Elocon]) 1 dose TOP ASDIRECTED PRN PRN Reason: skin complications Ondansetron HCl (Zofran) Confirm Administered Dose 4 mg .ROUTE .STK-MED ONE Stop: 04/02/19 09:22 Phenylephrine HCl (Phenylephrine In Ns 100 Mcg/Ml) Confirm Administered Dose 1 mg .ROUTE .STK-MED ONE Stop: 04/02/19 08:52 Propofol (Diprivan 20 Ml) Confirm Administered Dose 200 mg .ROUTE .STK-MED ONE Stop: 04/02/19 08:41 Rocuronium [place] (Zemuron) Confirm Administered Dose 50 mg .ROUTE .STK-MED ONE Stop: 04/02/19 08:49 Ropivacaine (Naropin 0.5%) Confirm Administered Dose 30 ml .ROUTE .STK-MED ONE Stop: 04/02/19 07:42 Sodium Chloride (Saline Flush) 10 ml FLUSH ASDIRECTED PRN PRN Reason: Keep Vein Open Stop: 04/02/19 18:00 Tranexamic Acid (Cyklokapron) Confirm Administered Dose 1,000 mg .ROUTE .STK- MED ONE Stop: 04/02/19 07:15 Last Admin: 04/02/19 10:04 Dose: 1,000 mg Vancomycin HCl (Vancomycin) Confirm Administered Dose 1 gm .ROUTE .STK-MED ONE Stop: 04/02/19 07:15 Last Admin: 04/02/19 09:59 Dose: 1 gm - Exam Wound/Incisions: Dressing Dry and Intact General: Alert, Cooperative, No Acute Distress Lungs: Normal Respiratory Effort Extremities: Other (NVS intact for BLE. Rian's negative. Active ankle motion noted.) - Problem List Review Problem List Initiated/Reviewed/Updated: Yes - My Orders Last 24 Hours: Active Orders 24 hr Category Date Time Status Patient Status [ADT] Routine ADT 04/02/19 07:02 Active Ambulate [RC] PER UNIT ROUTINE Care 04/02/19 07:02 Active Antiembolic Devices [RC] Q12H Care 04/02/19 07:03 Active May Shower [RC] ASDIRECTED Care 04/02/19 07:02 Active Notify Provider Consults [RC] ASDIRECTED Care 04/02/19 07:06 Active Oxygen Therapy [RC] PRN Care 04/02/19 07:02 Active RT Incentive Spirometry [RC] Q1HWA Care 04/02/19 06:59 Active Up to Chair [RC] ASDIRECTED Care 04/02/19 07:02 Active Urinary Catheter Removal [RC] Per Unit Routine Care 04/02/19 06:59 Inactive Vital Signs [RC] Q4HR Care 04/02/19 07:02 Active Consult to Case Management/Art Handler [CONS] Cons 04/02/19 07:02 Active Routine Consult to Physician [CONS] Routine Cons 04/02/19 07:02 Active OT Evaluation and Treatment [CONS] Routine Cons 04/02/19 06:59 Active PT Evaluation and Treatment [CONS] Routine Cons 04/02/19 06:59 Active Regular Diet [DIET] Diet 04/02/19 Lunch Active CBC WITH AUTO DIFF [HEME] AM Lab 04/04/19 05:11 Ordered CBC WITH AUTO DIFF [HEME] AM Lab 04/05/19 05:11 Ordered CBC WITH AUTO DIFF [HEME] AM Lab 04/06/19 05:11 Ordered CMP [COMPREHENSIVE METABOLIC PN,CMP] [CHEM] AM Lab 04/04/19 05:11 Ordered CMP [COMPREHENSIVE METABOLIC PN,CMP] [CHEM] AM Lab 04/05/19 05:11 Ordered CMP [COMPREHENSIVE METABOLIC PN,CMP] [CHEM] AM Lab 04/06/19 05:11 Ordered MAGNESIUM [CHEM] AM Lab 04/04/19 05:11 Ordered MAGNESIUM [CHEM] AM Lab 04/05/19 05:11 Ordered MAGNESIUM [CHEM] AM Lab 04/06/19 05:11 Ordered ARIPiprazole [Abilify] Med 04/03/19 09:00 Active 2.5 mg PO DAILY Acetaminophen/HYDROcodone [Eden 325-5 MG] Med 04/02/19 09:00 Active 1 - 2 tab PO Q4H PRN Aspirin [Halfprin] Med 04/03/19 09:00 Active 81 mg PO BID Bisacodyl [Dulcolax] Med 04/02/19 09:00 Active 5 mg PO DAILY PRN Cholecalciferol (Vitamin D3) [Vitamin D3] Med 04/03/19 09:00 Active 5,000 unit PO DAILY Docusate Sodium [Colace] Med 04/02/19 21:00 Active 100 mg PO BID HYDROmorphone [Dilaudid] Med 04/02/19 09:00 Active 0.2 mg IVPUSH Q2H PRN Iron Polysaccharides Complex [Ferrex 150] Med 04/03/19 09:00 Active 150 mg PO DAILY LORazepam [Ativan] Med 04/03/19 09:00 Active 0.5 mg PO DAILY LORazepam [Ativan] Med 04/02/19 21:00 Active 1 mg PO BEDTIME Levothyroxine Med 04/03/19 09:00 Active 25 mcg PO DAILY Loperamide [Imodium] Med 04/02/19 10:46 Active 2 mg PO ASDIRECTED PRN Magnesium Sulfate/Water [Magnesium Sulfate in Water Med 04/03/19 06:24 Active Premix] 2 gm Premix Bag 1 bag IV ONETIME Metoprolol Succinate [Toprol XL] Med 04/03/19 09:00 Active 25 mg PO DAILY Naloxone [Narcan] Med 04/02/19 09:00 Active 0.1 mg IVPUSH Q5M PRN Ondansetron [Zofran] Med 04/02/19 08:30 Active 4 mg IVPUSH Q6H PRN Pantoprazole [ProTONIX] Med 04/03/19 09:00 Active 40 mg PO DAILY Psyllium Husk/Aspartame [Metamucil Sugar Free] Med 04/02/19 10:46 Active 1 packet PO DAILY PRN Sennosides [Senna] Med 04/02/19 08:30 Active 8.6 mg PO BID PRN Sodium Bicarbonate Med 04/02/19 21:00 Active 325 mg PO BID Antiembolic Hose [OM.PC] Per Unit Routine Oth 04/02/19 07:04 Ordered Ice Therapy [OM.PC] Per Unit Routine Oth 04/02/19 07:03 Ordered Sequential Compression Device [OM.PC] Per Unit Routine Oth 04/02/19 07:00 Ordered Resuscitation Status Routine Resus Stat 04/02/19 07:02 Ordered Medication Orders Hydrocodone Bitart/Acetaminophen (Eden 325-5 Mg) 1 - 2 tab PO Q4H PRN PRN Reason: Pain Last Admin: 04/03/19 04:55 Dose: 1 tab Admin: 04/02/19 13:40 Dose: 2 tab Aripiprazole (Abilify) 2.5 mg PO DAILY JAY Aspirin (Halfprin) 81 mg PO BID JAY Bisacodyl (Dulcolax) 5 mg PO DAILY PRN PRN Reason: Constipation Cholecalciferol (Vitamin D3) 5,000 unit PO DAILY JAY Docusate Sodium (Colace) 100 mg PO BID JAY Last Admin: 04/02/19 20:40 Dose: Not Given Hydromorphone HCl (Dilaudid) 0.2 mg IVPUSH Q2H PRN PRN Reason: Pain (moderate 4-6) Last Admin: 04/03/19 00:24 Dose: 0.2 mg Admin: 04/02/19 21:48 Dose: 0.2 mg Magnesium Sulfate 2 gm/ Premix 50 mls @ 25 mls/hr IV ONETIME ONE Stop: 04/03/19 08:23 Levothyroxine Sodium (Levothyroxine) 25 mcg PO DAILY [facility] Loperamide HCl (Imodium) 2 mg PO ASDIRECTED PRN PRN Reason: Diarrhea Lorazepam (Ativan) 0.5 mg PO DAILY JAY Lorazepam (Ativan) 1 mg PO BEDTIME JAY Last Admin: 04/02/19 20:43 Dose: 1 mg Metoprolol Succinate (Toprol Xl) 25 mg PO DAILY [facility] Naloxone HCl (Narcan) 0.1 mg IVPUSH Q5M PRN PRN Reason: Oversedation Ondansetron HCl (Zofran) 4 mg IVPUSH Q6H PRN PRN Reason: Nausea/Vomiting Last Admin: 04/02/19 20:36 Dose: 4 mg Admin: 04/02/19 13:40 Dose: 4 mg Pantoprazole Sodium (Protonix) 40 mg PO DAILY [facility] Polysaccharide Iron Complex (Ferrex 150) 150 mg PO DAILY [facility] Psyllium Husk (Metamucil Sugar Free) 1 packet PO DAILY PRN PRN Reason: Constipation Senna (Senna) 8.6 mg PO BID PRN PRN Reason: Constipation Sodium Bicarbonate (Sodium Bicarbonate) 325 mg PO BID [facility] Last Admin: 04/02/19 20:40 Dose: Not Given - Assessment Assessment (Free Text/Narrative):: POD#1 - right TKA - Plan Plan (Free Text/Narrative):: 1. 81mg ASA PO BID, frequent mobility, TEDs, SCDs. 2. Likely d/c to Assisted for continued monitoring and therapies. 3. WBAT, progress with mobility as able. 4. Hgb 10.9. The pt's case was discussed with Dr. Lu.
[2019-04-03] MEDS: Sodium Bicarbonate 650 MG Tab PO SCH ×2 (08:00→20:17)
[2019-04-03] MEDS: ARIPiprazole 5 MG Tab PO SCH (08:00)
[2019-04-03] MEDS: Levothyroxine 25 MCG Tab PO SCH (08:00)
[2019-04-03] MEDS: Cholecalciferol (Vitamin D3) 5,000 UNIT Tab PO SCH (08:01)
[2019-04-03] MEDS: Iron Polysaccharides Complex 150 MG Cap PO SCH (08:01)
[2019-04-03] MEDS: LORazepam 0.5 MG Tab PO SCH (08:02)
[2019-04-03] MEDS: Metoprolol Succinate 25 MG Tab.ER PO SCH (08:02)
[2019-04-03] MEDS: Ondansetron 4 MG/2 ML SDV IVPUSH PRN ×2 (08:12→15:09)
--- NOTE | 2019-04-03 08:16 | PCM48HPAN ---
Post Anesthesia Note - EVALUATION WITHIN 48HRS OF ANESTHETIC Vital Signs in Normal Range: Yes Patient Participated in Evaluation: Yes Respiratory Function Stable: Yes Airway Patent: Yes Cardiovascular Function Stable: Yes Hydration Status Stable: Yes Pain Control Satisfactory: Yes Nausea and Vomiting Control Satisfactory: Yes Mental Status Recovered: Yes - COMMENTS/OBSERVATIONS Free Text/Narrative:: Patient up in chair this am. Patient c/o nausea yesterday and a bit today as well. Patient orientated times three, but states she feels confused. Anesthesia decided to no order scopalamine patch due to mental status of patient and age. No other c/o noted at this time.
[2019-04-03] MEDS ORDERED: Pantoprazole 40 MG Tab.CR PO SCH (09:00)
[2019-04-03] MEDS ORDERED: Aspirin 81 MG Tab.EC PO SCH (09:00)
[2019-04-03] MEDS: Docusate Sodium 100 MG Cap PO SCH ×2 (09:41→20:17)
[2019-04-03] MEDS: Enoxaparin 30 MG/0.3 ML Syringe SUBCUT SCH (13:17)
[2019-04-03] MEDS: LORazepam 1 MG Tab PO SCH (20:17)
[2019-04-04] MEDS: Acetaminophen/HYDROcodone 325-5 MG Tab PO PRN ×3 (04:55→20:42)
--- NOTE | 2019-04-04 06:35 | PCM.CONSN ---
- General Info Date of Service: 04/04/19 Admission Dx/Problem (Free Text): Admission Diagnosis/Problem Admission Diagnosis/Problem Osteoarthritis of knee Subjective Update: 04/03/19: In to see Rossy. She is doing well. Nursing reports she has worsening confusion at night but during the day she is A&OX3 during the day and very pleasant. Pain has been controlled and her nausea has resolved. She is eating and drinking well. She is ambulating and working with therapies. She has urinated. She is off of oxygen. PT/OT continues to recommend SNF placement. SW has been working on getting her accepted. 04/04/19: Rossy is lying in bed eating. She reports she feels very good and is very happy with how her stay has been thus far. She reports some soreness to her bottom which she says is form sitting so much. Nursing has noted no concerns with ulcerations, skin breakdown, etc. She reports her pain has been fairly controlled. She remains confused in the evenings and overnight and A&OX3 during the day. Discussed elevated anion gap with Dr. Myers. At this point we will continue current plan and encourage oral hydration. Labs and vital signs remain stable. Creatinine appears to be within her normal baseline. Planning on discharge tomorrow to [facility] for rehab stay. Functional Status: Reports: Pain Controlled, Tolerating Diet, Ambulating, Urinating, Incentive Spirometry. Denies: New Symptoms - Review of Systems General: Reports: No Symptoms. Denies: Fever, Chills HEENT: Reports: No Symptoms. Denies: Headaches, Sore Throat Pulmonary: Reports: No Symptoms. Denies: Shortness of Breath, Cough, Sputum, Wheezing Cardiovascular: Reports: No Symptoms. Denies: Chest Pain, Palpitations, Dyspnea on Exertion, Lightheadedness Gastrointestinal: Reports: No Symptoms. Denies: Abdominal Pain, Constipation, Diarrhea, Nausea, Vomiting Genitourinary: Reports: No Symptoms. Denies: Pain Musculoskeletal: Reports: Leg Pain Skin: Reports: No Symptoms. Denies: Cyanosis Neurological: Reports: Confusion (occasional baseline - waxes and wanes ) Psychiatric: Reports: No Symptoms - Patient Data Vitals - Most Recent: Last Vital Signs Temp 97.3 F 04/04/19 03:51 Pulse 78 04/04/19 03:51 Resp 16 04/04/19 03:51 BP 119/66 04/04/19 03:51 Pulse Ox 91 L 04/04/19 03:51 Weight - Most Recent: 153 lb I&O - Last 24 Hours: Intake & Output 04/03/19 04/03/19 04/04/19 14:59 22:59 06:59 Intake Total 120 1620 1000 Output Total 800 Balance 120 1620 200 Lab Results Last 24 Hours: Laboratory Results - last 24 hr 04/03/19 04/04/19 Range/Units 05:30 05:10 WBC 14.69 H (3.98-10.04) K/mm3 RBC 3.84 L (3.98-5.22) M/mm3 Hgb 10.7 L (11.2-15.7) gm/L Hct 33.1 L (34.1-44.9) % MCV 86.2 (79.4-94.8) fl MCH 27.9 (25.6-32.2) pg MCHC 32.3 (32.2-35.5) g/dl RDW Std Deviation 44.2 (36.4-46.3) fL Plt Count 257 (182-369) K/mm3 MPV 11.2 (9.4-12.3) fl Neut % (Auto) 75.2 H (34.0-71.1) % Lymph % (Auto) 10.1 L (19.3-51.7) % Jones % (Auto) 13.9 H (4.7-12.5) % Eos % (Auto) 0.6 L (0.7-5.8) Baso % (Auto) 0.1 (0.1-1.2) % Neut # (Auto) 11.05 H (1.56-6.13) K/mm3 Lymph # (Auto) 1.48 (1.18-3.74) K/mm3 Jones # (Auto) 2.04 H (0.24-0.36) K/mm3 Eos # (Auto) 0.09 (0.04-0.36) K/mm3 Baso # (Auto) 0.01 (0.01-0.08) K/mm3 Manual Slide Review Abnormal smear Med Orders - Current: Current Medications Hydrocodone Bitart/Acetaminophen ([place] 325-5 Mg) 1 - 2 tab PO Q4H PRN PRN Reason: Pain Last Admin: 04/04/19 04:55 Dose: 2 tab Aripiprazole (Abilify) 2.5 mg PO DAILY [facility] Last Admin: 04/03/19 08:00 Dose: 2.5 mg Aspirin (Halfprin) 81 mg PO DAILY [facility] Bisacodyl (Dulcolax) 5 mg PO DAILY PRN PRN Reason: Constipation Cholecalciferol (Vitamin D3) 5,000 unit PO DAILY [facility] Last Admin: 04/03/19 08:01 Dose: 5,000 unit Docusate Sodium (Colace) 100 mg PO BID [facility] Last Admin: 04/03/19 20:17 Dose: 100 mg Enoxaparin Sodium (Lovenox) 30 mg SUBCUT Q24H [facility] Last Admin: 04/03/19 13:17 Dose: 30 mg Hydromorphone HCl (Dilaudid) 0.2 mg IVPUSH Q2H PRN PRN Reason: Pain (moderate 4-6) Last Admin: 04/03/19 00:24 Dose: 0.2 mg Levothyroxine Sodium (Levothyroxine) 25 mcg PO DAILY [facility] Last Admin: 04/03/19 08:00 Dose: 25 mcg Loperamide HCl (Imodium) 2 mg PO ASDIRECTED PRN PRN Reason: Diarrhea Lorazepam (Ativan) 0.5 mg PO DAILY [facility] Last Admin: 04/03/19 08:02 Dose: 0.5 mg Lorazepam (Ativan) 1 mg PO BEDTIME [facility] Last Admin: 04/03/19 20:17 Dose: 1 mg Metoprolol Succinate (Toprol Xl) 25 mg PO DAILY [facility] Last Admin: 04/03/19 08:02 Dose: 25 mg Naloxone HCl (Narcan) 0.1 mg IVPUSH Q5M PRN PRN Reason: Oversedation Ondansetron HCl (Zofran) 4 mg IVPUSH Q6H PRN PRN Reason: Nausea/Vomiting Last Admin: 04/03/19 08:12 Dose: 4 mg Pantoprazole Sodium (Protonix) 40 mg PO DAILY [facility] Last Admin: 04/03/19 08:01 Dose: 40 mg Polysaccharide Iron Complex (Ferrex 150) 150 mg PO DAILY [facility] Last Admin: 04/03/19 08:01 Dose: 150 mg Psyllium Husk (Metamucil Sugar Free) 1 packet PO DAILY PRN PRN Reason: Constipation Senna (Senna) 8.6 mg PO BID PRN PRN Reason: Constipation Sodium Bicarbonate (Sodium Bicarbonate) 325 mg PO BID [facility] Last Admin: 04/03/19 20:17 Dose: 325 mg Discontinued Medications Aspirin (Halfprin) 81 mg PO BID [facility] Last Admin: 04/03/19 08:01 Dose: 81 mg Bupivacaine HCl (Marcaine 0.25%) Confirm Administered Dose 30 ml .ROUTE .STK- MED ONE Stop: 04/02/19 07:16 Last Admin: 04/02/19 09:56 Dose: 20 ml Cefazolin Sodium (Ancef) Confirm Administered Dose 2 gm .ROUTE .STK-MED ONE Stop: 04/02/19 07:16 Last Admin: 04/02/19 09:51 Dose: 2 gm Cefazolin Sodium (Ancef) Confirm Administered Dose 1 gm .ROUTE .STK-MED ONE Stop: 04/02/19 07:22 Cefazolin Sodium (Ancef) Confirm Administered Dose 1 gm .ROUTE .STK-MED ONE Stop: 04/02/19 07:46 Clindamycin Phosphate (Cleocin) Confirm Administered Dose 900 mg .ROUTE .STK- MED ONE Stop: 04/02/19 07:15 Morphine Sulfate 8 mg/Epinephrine HCl 0.3 mg/Cefuroxime Sodium 750 mg/Sodium Chloride 28.9 ml 0 mg .XX ONETIME ONE Stop: 04/02/19 09:31 Last Admin: 04/02/19 19:46 Dose: Not Given Cyclobenzaprine HCl (Flexeril) 10 mg PO TID PRN PRN Reason: Spasms Diclofenac Sodium (Voltaren 1% Gel) gm TOP QID PRN PRN Reason: Pain Epinephrine HCl (Adrenalin) Confirm Administered Dose 1 mg .ROUTE .STK-MED ONE Stop: 04/02/19 07:42 Epinephrine HCl (Epipen) mg IM ONETIME PRN PRN Reason: anaphylaxis Fentanyl (Sublimaze) Confirm Administered Dose 100 mcg .ROUTE .STK-MED ONE Stop: 04/02/19 07:22 Fentanyl (Sublimaze) Confirm Administered Dose 100 mcg .ROUTE .STK-MED ONE Stop: 04/02/19 08:51 Fentanyl (Sublimaze) Confirm Administered Dose 100 mcg .ROUTE .STK-MED ONE Stop: 04/02/19 10:42 Glycopyrrolate () Confirm Administered Dose 1 mg .ROUTE .STK-MED ONE Stop: 04/02/19 08:55 Hydromorphone HCl (Dilaudid) Confirm Administered Dose 0.5 mg .ROUTE .[facility]-MED ONE Stop: 04/02/19 09:54 Hydromorphone HCl (Dilaudid) Confirm Administered Dose 0.5 mg .ROUTE .[facility]-MED ONE Stop: 04/02/19 09:55 Hydromorphone HCl (Dilaudid) Confirm Administered Dose 0.5 mg .ROUTE .STK-MED ONE Stop: 04/02/19 10:41 Hydromorphone HCl (Dilaudid) Confirm Administered Dose 0.5 mg .ROUTE .[facility]-MED ONE Stop: 04/02/19 10:42 Lactated Ringer's (Ringers, Lactated) 1,000 mls @ 125 mls/hr IV ASDIRECTED [facility] Stop: 04/02/19 23:00 Cefazolin Sodium/Dextrose 2 gm (/ Premix) 50 mls @ 100 mls/hr IV Q8H [facility] Stop: 04/03/19 07:29 Last Admin: 04/03/19 06:05 Dose: 100 mls/hr Sodium Chloride (Normal Saline) 1,000 mls @ 125 mls/hr IV ASDIRECTED [facility] Stop: 04/02/19 23:00 Last Admin: 04/02/19 13:35 Dose: 125 mls/hr Magnesium Sulfate 2 gm/ Premix 50 mls @ 25 mls/hr IV ONETIME ONE Stop: 04/03/19 08:23 Last Admin: 04/03/19 07:50 Dose: 25 mls/hr Iodine (Iodine 2% Mild Tincture) Confirm Administered Dose 30 ml .ROUTE .[facility]- MED ONE Stop: 04/02/19 07:16 Last Admin: 04/02/19 09:48 Dose: 18 ml Labetalol HCl (Normodyne) Confirm Administered Dose 100 mg .ROUTE .[facility]-MED ONE Stop: 04/02/19 09:20 Lidocaine/Sodium Bicarbonate (Buffered Lidocaine 1% In Ns 8.4%) 0.25 ml IDERM ONETIME PRN PRN Reason: Prior to IV Start Stop: 04/02/19 18:00 Last Admin: 04/02/19 07:40 Dose: 0.25 ml Lorazepam (Ativan) 0.5 mg PO ONETIME ONE Stop: 04/02/19 14:31 Last Admin: 04/02/19 15:11 Dose: 0.5 mg Meperidine HCl (Meperidine) 25 mg IVPUSH ONETIME PRN PRN Reason: Tremors Stop: 04/02/19 14:00 Last Admin: 04/02/19 11:30 Dose: 25 mg Midazolam HCl (Versed 1 Mg/Ml) Confirm Administered Dose 2 mg .ROUTE .STK-MED ONE Stop: 04/02/19 08:48 Non-Formulary Medication (Mometasone Furoate [Elocon]) 1 dose TOP ASDIRECTED PRN PRN Reason: skin complications Ondansetron HCl (Zofran) Confirm Administered Dose 4 mg .ROUTE .STK-MED ONE Stop: 04/02/19 09:22 Phenylephrine HCl (Phenylephrine In Ns 100 Mcg/Ml) Confirm Administered Dose 1 mg .ROUTE .STK-MED ONE Stop: 04/02/19 08:52 Propofol (Diprivan 20 Ml) Confirm Administered Dose 200 mg .ROUTE .STK-MED ONE Stop: 04/02/19 08:41 Rocuronium [place] (Zemuron) Confirm Administered Dose 50 mg .ROUTE .STK-MED ONE Stop: 04/02/19 08:49 Ropivacaine (Naropin 0.5%) Confirm Administered Dose 30 ml .ROUTE .STK-MED ONE Stop: 04/02/19 07:42 Sodium Chloride (Saline Flush) 10 ml FLUSH ASDIRECTED PRN PRN Reason: Keep Vein Open Stop: 04/02/19 18:00 Tranexamic Acid (Cyklokapron) Confirm Administered Dose 1,000 mg .ROUTE .STK- MED ONE Stop: 04/02/19 07:15 Last Admin: 04/02/19 10:04 Dose: 1,000 mg Vancomycin HCl (Vancomycin) Confirm Administered Dose 1 gm .ROUTE .STK-MED ONE Stop: 04/02/19 07:15 Last Admin: 04/02/19 09:59 Dose: 1 gm - Exam Quality Assessment: DVT Prophylaxis General: Alert, Oriented, Cooperative, No Acute Distress HEENT: Pupils Equal, Pupils Reactive, EOMI, Mucous Membr. Moist/[place] Neck: Supple, Trachea Midline, No JVD Lungs: Clear to Auscultation, Normal Respiratory Effort Cardiovascular: Regular Rate, Regular Rhythm GI/Abdominal Exam: Normal Bowel Sounds, Soft, Non-Tender, No Distention, No Abnormal Bruit (Female) Exam: Deferred Back Exam: Normal Inspection, Full Range of Motion Extremities: No Pedal Edema, Normal Capillary Refill, Leg Pain, Limited Range of Motion, Other (Bandage in place on right leg. Cooling pack in place ) Peripheral Pulses: 2+: Radial (L), Radial (R), Dorsalis Pedis (L), Dorsalis Pedis (R) Skin: Warm, Dry, Intact Neurological: No New Focal Deficit Psy/Mental Status: Alert, Normal Affect, Normal Mood Consult PN Assessment/Plan POD#: 2 Procedures: Procedures ANTINUCLEAR ANTIBODIES (06/23/18) ASSAY NEPHELOMETRY NOT SPEC (06/23/18) ASSAY OF AMYLASE (01/15/15) ASSAY OF BLOOD/URIC ACID (06/23/18) ASSAY OF CREATININE (01/03/15) ASSAY OF FERRITIN (06/23/18) ASSAY OF IRON (06/23/18) ASSAY OF LIPASE (10/19/17) ASSAY OF PARATHORMONE (06/23/18) ASSAY OF PROTEIN URINE (06/23/18) ASSAY OF TRANSFERRIN (06/23/18) ASSAY OF TROPONIN QUANT (10/19/17) ASSAY OF URINE CREATININE (06/23/18) C-REACTIVE PROTEIN (10/19/17) CARDIOVASCULAR STRESS TEST (09/24/16) CHEST X-RAY 1 VIEW FRONTAL (01/15/15) COMP SCREEN MAMMOGRAM ADD-ON (06/14/16) COMPLEMENT ANTIGEN (06/23/18) COMPLETE CBC W/AUTO DIFF WBC (10/11/18) COMPREHEN METABOLIC PANEL (10/19/17) CT ABD & PELVIS W/O CONTRAST (01/26/16) CULTURE AEROBIC IDENTIFY (08/03/14) ELECTROCARDIOGRAM TRACING (01/15/15) EMERGENCY DEPT VISIT (09/07/18) EMERGENCY DEPT VISIT (10/19/17) EMERGENCY DEPT VISIT (10/17/17) FLUORESCENT ANTIBODY TITER (06/23/18) HIV-1 AG IA (06/23/18) HT MUSCLE IMAGE SPECT MULT (09/24/16) HYDRATE IV INFUSION ADD-ON (10/19/17) IMMUNOASSAY QUANT NOS NONAB (06/23/18) MICROBE SUSCEPTIBLE PETER (03/27/18) MRI JOINT UPR EXTREM W/O DYE (05/24/14) OFFICE/OUTPATIENT VISIT EST (03/27/18) OT EVALUATION (07/16/14) PROTEIN E-PHORESIS/URINE/CSF (06/23/18) PROTHROMBIN TIME (10/19/17) RENAL FUNCTION PANEL (10/11/18) ROUTINE VENIPUNCTURE (10/11/18) SELF CARE MNGMENT TRAINING (07/16/14) THER/PROPH/DIAG INJ IV PUSH (10/19/17) THER/PROPH/DIAG INJ SC/IM (09/07/18) THERAPEUTIC ACTIVITIES (08/14/14) THERAPEUTIC EXERCISES (08/14/14) ULTRASOUND THERAPY (07/16/14) URINALYSIS AUTO W/O SCOPE (02/26/15) URINALYSIS AUTO W/SCOPE (06/23/18) URINE BACTERIA CULTURE (03/27/18) URINE CULTURE/COLONY COUNT (03/27/18) US EXAM ABDO BACK WALL DANIELS (06/30/18) VITAMIN D 25 HYDROXY (06/23/18) X-RAY EXAM KNEE 4 OR MORE (09/07/18) X-RAY EXAM OF ANKLE (05/02/18) X-RAY EXAM SERIES ABDOMEN (10/19/17) (1) S/P total knee arthroplasty SNOMED Code(s): 0049472194320, 898752746, 3260181211943 Code(s): Z96.659 - PRESENCE OF UNSPECIFIED ARTIFICIAL KNEE JOINT Priority: High Current Visit: Yes Qualifiers: Laterality: right Qualified Code(s): Z96.651 - Presence of right artificial knee joint (2) HTN (hypertension) SNOMED Code(s): 54179209 Code(s): I10 - ESSENTIAL (PRIMARY) HYPERTENSION Priority: Medium Current Visit: No Qualifiers: Hypertension type: unspecified Qualified Code(s): I10 - Essential (primary ) hypertension (3) HLD (hyperlipidemia) SNOMED Code(s): 17900597 Code(s): E78.5 - HYPERLIPIDEMIA, UNSPECIFIED Priority: Low Current Visit : No Qualifiers: Hyperlipidemia type: unspecified Qualified Code(s): E78.5 - Hyperlipidemia , unspecified (4) CAD (coronary artery disease) SNOMED Code(s): 07076127 Code(s): I25.10 - ATHSCL HEART DISEASE OF [place] CORONARY ARTERY W/O ANG PCTRS Priority: Medium Current Visit: No Qualifiers: Coronary Disease-Associated Artery/Lesion type: unspecified vessel or lesion type [place] vs. transplanted heart: [place] heart Associated angina: angina presence unspecified Qualified Code(s): I25.10 - Atherosclerotic heart disease of [place] coronary artery without angina pectoris (5) Hypothyroidism SNOMED Code(s): 40333853 Code(s): E03.9 - HYPOTHYROIDISM, UNSPECIFIED Priority: Low Current Visit : No Qualifiers: Hypothyroidism type: unspecified Qualified Code(s): E03.9 - Hypothyroidism , unspecified (6) Osteopenia SNOMED Code(s): 875143802 Code(s): M85.80 - OTH DISRD OF BONE DENSITY AND STRUCTURE, UNSPECIFIED SITE Priority: Low Current Visit: No Qualifiers: Osteopenia location: unspecified Qualified Code(s): M85.80 - Other specified disorders of bone density and structure, unspecified site (7) H/O parathyroidectomy SNOMED Code(s): 584657435985401, 429627272025712 Code(s): Z98.890 - OTHER SPECIFIED POSTPROCEDURAL STATES Priority: Low Current Visit: No (8) Iron deficiency anemia SNOMED Code(s): 48737582 Code(s): D50.9 - IRON DEFICIENCY ANEMIA, UNSPECIFIED Priority: Medium Current Visit: No Qualifiers: Iron deficiency anemia type: unspecified iron deficiency Qualified Code(s) : D50.9 - Iron deficiency anemia, unspecified (9) Chronic migraine SNOMED Code(s): 082150591 Code(s): G43.709 - CHRONIC MIGRAINE W/O AURA, NOT INTRACTABLE, W/O STAT MIGR Priority: Low Current Visit: No (10) IBS (irritable bowel syndrome) SNOMED Code(s): 94054139 Code(s): K58.9 - IRRITABLE BOWEL SYNDROME WITHOUT DIARRHEA Priority: Medium Current Visit: No Qualifiers: Irritable bowel syndrome type: unspecified Qualified Code(s): K58.9 - Irritable bowel syndrome without diarrhea (11) Crohns disease SNOMED Code(s): 12143131 Code(s): K50.90 - CROHN'S DISEASE, UNSPECIFIED, WITHOUT COMPLICATIONS Priority: Low Current Visit: No Qualifiers: Gastrointestinal tract location: unspecified location Digestive disease complication type: unspecified complication Qualified Code(s): K50.919 - Crohn 's disease, unspecified, with unspecified complications (12) Bipolar 1 disorder SNOMED Code(s): 355531402 Code(s): F31.9 - BIPOLAR DISORDER, UNSPECIFIED Priority: Low Current Visit: No (13) Chronic GERD SNOMED Code(s): 712099495, 984766236 Code(s): K21.9 - GASTRO-ESOPHAGEAL REFLUX DISEASE WITHOUT ESOPHAGITIS Priority: Low Current Visit: No (14) Elevated serum creatinine SNOMED Code(s): 480243340 Code(s): R79.89 - OTHER SPECIFIED ABNORMAL FINDINGS OF BLOOD CHEMISTRY Priority: Medium Current Visit: Yes (15) Osteoarthritis of right knee SNOMED Code(s): 896007033797374 Code(s): M17.11 - UNILATERAL PRIMARY OSTEOARTHRITIS, RIGHT KNEE Priority: High Current Visit: Yes Qualifiers: Osteoarthritis type: primary Qualified Code(s): M17.11 - Unilateral primary osteoarthritis, right knee (16) Renal insufficiency SNOMED Code(s): 505064282, 030483850 Code(s): N28.9 - DISORDER OF KIDNEY AND URETER, UNSPECIFIED Priority: High Current Visit: Yes Problem List Initiated/Reviewed/Updated: Yes My Orders Last 24 Hours: My Active Orders 04/04/19 05:10 CBC WITH AUTO DIFF [HEME] AM CMP [COMPREHENSIVE METABOLIC PN,CMP] [CHEM] AM MAGNESIUM [CHEM] AM 04/05/19 05:11 CBC WITH AUTO DIFF [HEME] AM CMP [COMPREHENSIVE METABOLIC PN,CMP] [CHEM] AM MAGNESIUM [CHEM] AM 04/06/19 05:11 CBC WITH AUTO DIFF [HEME] AM CMP [COMPREHENSIVE METABOLIC PN,CMP] [CHEM] AM MAGNESIUM [CHEM] AM Plan: I/P: Acute: S/P right total knee arthroplasty - post-operative day 2 -DVT prophylaxis and pain management per primary care team -PT/OT -IS/RT -Monitor oxygen saturation -Titrate oxygen as needed -Home medications reviewed -Vital signs stable -Monitor labs -Pre-operative Hgb was 11.7; Now 10.9--> -Pre-operative GFR was 24; Now 24--> -Pre-operative creatinine was 2.0; Now 2.0--> -Pre-operative BUN was 24; Now 24--> -Pre-operative 12-lead EKG shows sinus rhythm with RBBB and LAFB Osteoarthritis of right knee -Pain management per primary care team Chronic: Stage IV CKD HTN HLD CAD Hypothyroidism GERD Osteopenia Parathyroidectomy Iron deficiency anemia Migraines Varicose Veins Chronic Diarrhea IBS Crohn's Disease, [place] neuropathy, Anxiety, Bipolar disorder, depression, osteopenia, DJD Plan: CM for discharge planning GI prophylaxis Home medications as indicated Other orders as listed above Routine AM labs She is a full code. Her PCP is Dr. Winchester. Dr. Swenson is her brass pourer Currently Rossy resides in [facility] facility and it is felt she will require more care post-surgical. It is felt she will benefit from a SNF rehab stay after discharge. It is also felt she will only require these services for 30 days or less. LOS expected at 3 days pending placement. Thank you for allowing us to participate in the care of this patient!!
[2019-04-04] MEDS: LORazepam 0.5 MG Tab PO SCH (08:54)
[2019-04-04] MEDS ORDERED: Omeprazole 20 MG Cap.CR SCH (09:00)
[2019-04-04] MEDS: Aspirin 81 MG Tab.Chew PO SCH (09:02)
[2019-04-04] MEDS: ARIPiprazole 5 MG Tab PO SCH (09:03)
[2019-04-04] MEDS: Levothyroxine 25 MCG Tab PO SCH (09:04)
[2019-04-04] MEDS: Sodium Bicarbonate 650 MG Tab PO SCH ×2 (09:04→20:41)
[2019-04-04] MEDS: Cholecalciferol (Vitamin D3) 5,000 UNIT Tab PO SCH (09:05)
[2019-04-04] MEDS: Metoprolol Succinate 25 MG Tab.ER PO SCH (09:05)
[2019-04-04] MEDS: Iron Polysaccharides Complex 150 MG Cap PO SCH (09:08)
[2019-04-04] MEDS: Docusate Sodium 100 MG Cap PO SCH ×2 (09:11→20:48)
[2019-04-04] MEDS ORDERED: Omeprazole 20 MG Cap.CR PO SCH (10:01)
[2019-04-04] MEDS: Enoxaparin 30 MG/0.3 ML Syringe SUBCUT SCH (13:07)
--- NOTE | 2019-04-04 17:25 | PCM.SURGPN ---
- General Info Date of Service: 04/04/19 POD#: 2 Functional Status: Reports: Pain Controlled, Tolerating Diet, Ambulating, Urinating, Incentive Spirometry, Other (Nursing states pt has been doing well.) - Patient Data Vitals - Most Recent: Last Vital Signs Temp 98.5 F 04/04/19 15:00 Pulse 90 04/04/19 09:05 Resp 20 04/04/19 15:00 BP 154/70 H 04/04/19 15:00 Pulse Ox 94 L 04/04/19 15:00 Weight - Most Recent: 153 lb I&O - Last 24 Hours: Intake & Output 04/04/19 04/04/19 04/04/19 06:59 14:59 22:59 Intake Total 1000 240 800 Output Total 800 400 400 Balance 200 -160 400 Lab Results Last 24 Hrs: Laboratory Results - last 24 hr 04/04/19 04/04/19 Range/Units 05:10 05:10 WBC 14.69 H (3.98-10.04) K/mm3 RBC 3.84 L (3.98-5.22) M/mm3 Hgb 10.7 L (11.2-15.7) gm/L Hct 33.1 L (34.1-44.9) % MCV 86.2 (79.4-94.8) fl MCH 27.9 (25.6-32.2) pg MCHC 32.3 (32.2-35.5) g/dl RDW Std Deviation 44.2 (36.4-46.3) fL Plt Count 257 (182-369) K/mm3 MPV 11.2 (9.4-12.3) fl Neut % (Auto) 75.2 H (34.0-71.1) % Lymph % (Auto) 10.1 L (19.3-51.7) % Fleming % (Auto) 13.9 H (4.7-12.5) % Eos % (Auto) 0.6 L (0.7-5.8) Baso % (Auto) 0.1 (0.1-1.2) % Neut # (Auto) 11.05 H (1.56-6.13) K/mm3 Lymph # (Auto) 1.48 (1.18-3.74) K/mm3 Fleming # (Auto) 2.04 H (0.24-0.36) K/mm3 Eos # (Auto) 0.09 (0.04-0.36) K/mm3 Baso # (Auto) 0.01 (0.01-0.08) K/mm3 Manual Slide Review Normal smear Sodium 141 (136-145) mEq/L Potassium 3.9 (3.5-5.1) mEq/L Chloride 105 (98-107) mEq/L Carbon Dioxide 22 (21-32) mEq/L Anion Gap 17.9 H (5-15) BUN 29 H (7-18) mg/dL Creatinine 2.1 H (0.55-1.02) mg/dL Est Cr Clr Drug Dosing 23.02 mL/min Estimated GFR (MDRD) 23 (>60) mL/min BUN/Creatinine Ratio 13.8 L (14-18) Glucose 97 (83-115) mg/dL Calcium 9.1 (8.5-10.1) mg/dL Magnesium 2.0 (1.8-2.4) mg/dl Total Bilirubin 0.4 (0.2-1.0) mg/dL AST 47 H (15-37) U/L ALT 11 L (14-59) U/L Alkaline Phosphatase 74 (46-116) U/L Total Protein 6.9 (6.4-8.2) g/dl Albumin 3.2 L (3.4-5.0) g/dl Globulin 3.7 gm/dL Albumin/Globulin Ratio 0.9 L (1-2) Med Orders - Current: Current Medications Hydrocodone Bitart/Acetaminophen ([place] 325-5 Mg) 1 - 2 tab PO Q4H PRN PRN Reason: Pain Last Admin: 04/04/19 14:42 Dose: 2 tab Aripiprazole (Abilify) 2.5 mg PO DAILY [facility] Last Admin: 04/04/19 09:03 Dose: 2.5 mg Aspirin (Aspirin) 81 mg PO DAILY [facility] Last Admin: 04/04/19 09:02 Dose: 81 mg Bisacodyl (Dulcolax) 5 mg PO DAILY PRN PRN Reason: Constipation Cholecalciferol (Vitamin D3) 5,000 unit PO DAILY [facility] Last Admin: 04/04/19 09:05 Dose: 5,000 unit Docusate Sodium (Colace) 100 mg PO BID [facility] Last Admin: 04/04/19 09:11 Dose: Not Given Enoxaparin Sodium (Lovenox) 30 mg SUBCUT Q24H [facility] Last Admin: 04/04/19 13:07 Dose: 30 mg Hydromorphone HCl (Dilaudid) 0.2 mg IVPUSH Q2H PRN PRN Reason: Pain (moderate 4-6) Last Admin: 04/03/19 00:24 Dose: 0.2 mg Levothyroxine Sodium (Levothyroxine) 25 mcg PO DAILY [facility] Last Admin: 04/04/19 09:04 Dose: 25 mcg Loperamide HCl (Imodium) 2 mg PO ASDIRECTED PRN PRN Reason: Diarrhea Lorazepam (Ativan) 0.5 mg PO DAILY [facility] Last Admin: 04/04/19 08:54 Dose: 0.5 mg Lorazepam (Ativan) 1 mg PO BEDTIME [facility] Last Admin: 04/03/19 20:17 Dose: 1 mg Metoprolol Succinate (Toprol Xl) 25 mg PO DAILY [facility] Last Admin: 04/04/19 09:05 Dose: 25 mg Naloxone HCl (Narcan) 0.1 mg IVPUSH Q5M PRN PRN Reason: Oversedation Omeprazole (Omeprazole) 20 mg PO DAILY [facility] Ondansetron HCl (Zofran) 4 mg IVPUSH Q6H PRN PRN Reason: Nausea/Vomiting Last Admin: 04/03/19 08:12 Dose: 4 mg Polysaccharide Iron Complex (Ferrex 150) 150 mg PO DAILY [facility] Last Admin: 04/04/19 09:08 Dose: 150 mg Psyllium Husk (Metamucil Sugar Free) 1 packet PO DAILY PRN PRN Reason: Constipation Senna (Senna) 8.6 mg PO BID PRN PRN Reason: Constipation Sodium Bicarbonate (Sodium Bicarbonate) 325 mg PO BID [facility] Last Admin: 04/04/19 09:04 Dose: 325 mg Discontinued Medications Aspirin (Halfprin) 81 mg PO BID [facility] Last Admin: 04/03/19 08:01 Dose: 81 mg Bupivacaine HCl (Marcaine 0.25%) Confirm Administered Dose 30 ml .ROUTE .STK- MED ONE Stop: 04/02/19 07:16 Last Admin: 04/02/19 09:56 Dose: 20 ml Cefazolin Sodium (Ancef) Confirm Administered Dose 2 gm .ROUTE .STK-MED ONE Stop: 04/02/19 07:16 Last Admin: 04/02/19 09:51 Dose: 2 gm Cefazolin Sodium (Ancef) Confirm Administered Dose 1 gm .ROUTE .STK-MED ONE Stop: 04/02/19 07:22 Cefazolin Sodium (Ancef) Confirm Administered Dose 1 gm .ROUTE .STK-MED ONE Stop: 04/02/19 07:46 Clindamycin Phosphate (Cleocin) Confirm Administered Dose 900 mg .ROUTE .STK- MED ONE Stop: 04/02/19 07:15 Morphine Sulfate 8 mg/Epinephrine HCl 0.3 mg/Cefuroxime Sodium 750 mg/Sodium Chloride 28.9 ml 0 mg .XX ONETIME ONE Stop: 04/02/19 09:31 Last Admin: 04/02/19 19:46 Dose: Not Given Cyclobenzaprine HCl (Flexeril) 10 mg PO TID PRN PRN Reason: Spasms Diclofenac Sodium (Voltaren 1% Gel) gm TOP QID PRN PRN Reason: Pain Epinephrine HCl (Adrenalin) Confirm Administered Dose 1 mg .ROUTE .STK-MED ONE Stop: 04/02/19 07:42 Epinephrine HCl (Epipen) mg IM ONETIME PRN PRN Reason: anaphylaxis Fentanyl (Sublimaze) Confirm Administered Dose 100 mcg .ROUTE .STK-MED ONE Stop: 04/02/19 07:22 Fentanyl (Sublimaze) Confirm Administered Dose 100 mcg .ROUTE .STK-MED ONE Stop: 04/02/19 08:51 Fentanyl (Sublimaze) Confirm Administered Dose 100 mcg .ROUTE .STK-MED ONE Stop: 04/02/19 10:42 Glycopyrrolate () Confirm Administered Dose 1 mg .ROUTE .STK-MED ONE Stop: 04/02/19 08:55 Hydromorphone HCl (Dilaudid) Confirm Administered Dose 0.5 mg .ROUTE .STK-MED ONE Stop: 04/02/19 09:54 Hydromorphone HCl (Dilaudid) Confirm Administered Dose 0.5 mg .ROUTE .STK-MED ONE Stop: 04/02/19 09:55 Hydromorphone HCl (Dilaudid) Confirm Administered Dose 0.5 mg .ROUTE .STK-MED ONE Stop: 04/02/19 10:41 Hydromorphone HCl (Dilaudid) Confirm Administered Dose 0.5 mg .ROUTE .STK-MED ONE Stop: 04/02/19 10:42 Lactated Ringer's (Ringers, Lactated) 1,000 mls @ 125 mls/hr IV ASDIRECTED [facility] Stop: 04/02/19 23:00 Cefazolin Sodium/Dextrose 2 gm (/ Premix) 50 mls @ 100 mls/hr IV Q8H [facility] Stop: 04/03/19 07:29 Last Admin: 04/03/19 06:05 Dose: 100 mls/hr Sodium Chloride (Normal Saline) 1,000 mls @ 125 mls/hr IV ASDIRECTED [facility] Stop: 04/02/19 23:00 Last Admin: 04/02/19 13:35 Dose: 125 mls/hr Magnesium Sulfate 2 gm/ Premix 50 mls @ 25 mls/hr IV ONETIME ONE Stop: 04/03/19 08:23 Last Admin: 04/03/19 07:50 Dose: 25 mls/hr Iodine (Iodine 2% Mild Tincture) Confirm Administered Dose 30 ml .ROUTE .STK- MED ONE Stop: 04/02/19 07:16 Last Admin: 04/02/19 09:48 Dose: 18 ml Labetalol HCl (Normodyne) Confirm Administered Dose 100 mg .ROUTE .STK-MED ONE Stop: 04/02/19 09:20 Lidocaine/Sodium Bicarbonate (Buffered Lidocaine 1% In Ns 8.4%) 0.25 ml IDERM ONETIME PRN PRN Reason: Prior to IV Start Stop: 04/02/19 18:00 Last Admin: 04/02/19 07:40 Dose: 0.25 ml Lorazepam (Ativan) 0.5 mg PO ONETIME ONE Stop: 04/02/19 14:31 Last Admin: 04/02/19 15:11 Dose: 0.5 mg Meperidine HCl (Meperidine) 25 mg IVPUSH ONETIME PRN PRN Reason: Tremors Stop: 04/02/19 14:00 Last Admin: 04/02/19 11:30 Dose: 25 mg Midazolam HCl (Versed 1 Mg/Ml) Confirm Administered Dose 2 mg .ROUTE .STK-MED ONE Stop: 04/02/19 08:48 Non-Formulary Medication (Mometasone Furoate [Elocon]) 1 dose TOP ASDIRECTED PRN PRN Reason: skin complications Omeprazole (Omeprazole) 20 mg .XX DAILY [facility] Last Admin: 04/04/19 09:10 Dose: 20 mg Omeprazole (Omeprazole) 20 mg PO DAILY [facility] Ondansetron HCl (Zofran) Confirm Administered Dose 4 mg .ROUTE .STK-MED ONE Stop: 04/02/19 09:22 Pantoprazole Sodium (Protonix) 40 mg PO DAILY [facility] Last Admin: 04/03/19 08:01 Dose: 40 mg Phenylephrine HCl (Phenylephrine In Ns 100 Mcg/Ml) Confirm Administered Dose 1 mg .ROUTE .STK-MED ONE Stop: 04/02/19 08:52 Propofol (Diprivan 20 Ml) Confirm Administered Dose 200 mg .ROUTE .STK-MED ONE Stop: 04/02/19 08:41 Rocuronium [place] (Zemuron) Confirm Administered Dose 50 mg .ROUTE .STK-MED ONE Stop: 04/02/19 08:49 Ropivacaine (Naropin 0.5%) Confirm Administered Dose 30 ml .ROUTE .STK-MED ONE Stop: 04/02/19 07:42 Sodium Chloride (Saline Flush) 10 ml FLUSH ASDIRECTED PRN PRN Reason: Keep Vein Open Stop: 04/02/19 18:00 Tranexamic Acid (Cyklokapron) Confirm Administered Dose 1,000 mg .ROUTE .STK- MED ONE Stop: 04/02/19 07:15 Last Admin: 04/02/19 10:04 Dose: 1,000 mg Vancomycin HCl (Vancomycin) Confirm Administered Dose 1 gm .ROUTE .STK-MED ONE Stop: 04/02/19 07:15 Last Admin: 04/02/19 09:59 Dose: 1 gm - Exam Wound/Incisions: Dressing Dry and Intact General: Alert, Cooperative, No Acute Distress Lungs: Normal Respiratory Effort Extremities: Other (NVS intact for BLE. Rian's negative.) - Problem List Review Problem List Initiated/Reviewed/Updated: Yes - My Orders Last 24 Hours: Active Orders 24 hr Category Date Time Status CBC WITH AUTO DIFF [HEME] AM Lab 04/05/19 05:11 Ordered CBC WITH AUTO DIFF [HEME] AM Lab 04/06/19 05:11 Ordered CMP [COMPREHENSIVE METABOLIC PN,CMP] [CHEM] AM Lab 04/05/19 05:11 Ordered CMP [COMPREHENSIVE METABOLIC PN,CMP] [CHEM] AM Lab 04/06/19 05:11 Ordered MAGNESIUM [CHEM] AM Lab 04/05/19 05:11 Ordered MAGNESIUM [CHEM] AM Lab 04/06/19 05:11 Ordered Aspirin Med 04/04/19 09:00 Active 81 mg PO DAILY Omeprazole Med 04/05/19 09:00 Active 20 mg PO DAILY Medication Orders Hydrocodone Bitart/Acetaminophen ([place] 325-5 Mg) 1 - 2 tab PO Q4H PRN PRN Reason: Pain Last Admin: 04/04/19 14:42 Dose: 2 tab Admin: 04/04/19 04:55 Dose: 2 tab Admin: 04/03/19 23:50 Dose: 2 tab Admin: 04/03/19 17:54 Dose: 1 tab Admin: 04/03/19 15:07 Dose: 1 tab Admin: 04/03/19 11:58 Dose: 1 tab Admin: 04/03/19 09:36 Dose: 2 tab Admin: 04/03/19 04:55 Dose: 1 tab Admin: 04/02/19 13:40 Dose: 2 tab Aripiprazole (Abilify) 2.5 mg PO DAILY [facility] Last Admin: 04/04/19 09:03 Dose: 2.5 mg Admin: 04/03/19 08:00 Dose: 2.5 mg Aspirin (Aspirin) 81 mg PO DAILY [facility] Last Admin: 04/04/19 09:02 Dose: 81 mg Bisacodyl (Dulcolax) 5 mg PO DAILY PRN PRN Reason: Constipation Cholecalciferol (Vitamin D3) 5,000 unit PO DAILY [facility] Last Admin: 04/04/19 09:05 Dose: 5,000 unit Admin: 04/03/19 08:01 Dose: 5,000 unit Docusate Sodium (Colace) 100 mg PO BID [facility] Last Admin: 04/04/19 09:11 Dose: Not Given Admin: 04/03/19 20:17 Dose: 100 mg Admin: 04/03/19 09:41 Dose: Not Given Admin: 04/02/19 20:40 Dose: Not Given Enoxaparin Sodium (Lovenox) 30 mg SUBCUT Q24H [facility] Last Admin: 04/04/19 13:07 Dose: 30 mg Admin: 04/03/19 13:17 Dose: 30 mg Hydromorphone HCl (Dilaudid) 0.2 mg IVPUSH Q2H PRN PRN Reason: Pain (moderate 4-6) Last Admin: 04/03/19 00:24 Dose: 0.2 mg Admin: 04/02/19 21:48 Dose: 0.2 mg Levothyroxine Sodium (Levothyroxine) 25 mcg PO DAILY [facility] Last Admin: 04/04/19 09:04 Dose: 25 mcg Admin: 04/03/19 08:00 Dose: 25 mcg Loperamide HCl (Imodium) 2 mg PO ASDIRECTED PRN PRN Reason: Diarrhea Lorazepam (Ativan) 0.5 mg PO DAILY [facility] Last Admin: 04/04/19 08:54 Dose: 0.5 mg Admin: 04/03/19 08:02 Dose: 0.5 mg Lorazepam (Ativan) 1 mg PO BEDTIME [facility] Last Admin: 04/03/19 20:17 Dose: 1 mg Admin: 04/02/19 20:43 Dose: 1 mg Metoprolol Succinate (Toprol Xl) 25 mg PO DAILY [facility] Last Admin: 04/04/19 09:05 Dose: 25 mg Admin: 04/03/19 08:02 Dose: 25 mg Naloxone HCl (Narcan) 0.1 mg IVPUSH Q5M PRN PRN Reason: Oversedation Omeprazole (Omeprazole) 20 mg PO DAILY [facility] Ondansetron HCl (Zofran) 4 mg IVPUSH Q6H PRN PRN Reason: Nausea/Vomiting Last Admin: 04/03/19 08:12 Dose: 4 mg Admin: 04/02/19 20:36 Dose: 4 mg Admin: 04/02/19 13:40 Dose: 4 mg Polysaccharide Iron Complex (Ferrex 150) 150 mg PO DAILY [facility] Last Admin: 04/04/19 09:08 Dose: 150 mg Admin: 04/03/19 08:01 Dose: 150 mg Psyllium Husk (Metamucil Sugar Free) 1 packet PO DAILY PRN PRN Reason: Constipation Senna (Senna) 8.6 mg PO BID PRN PRN Reason: Constipation Sodium Bicarbonate (Sodium Bicarbonate) 325 mg PO BID [facility] Last Admin: 04/04/19 09:04 Dose: 325 mg Admin: 04/03/19 20:17 Dose: 325 mg Admin: 04/03/19 08:00 Dose: 325 mg Admin: 04/02/19 20:40 Dose: Not Given - Assessment Assessment (Free Text/Narrative):: POD#2 - right TKA - Plan Plan (Free Text/Narrative):: 1. Hospitalist service for medical management. 2. Lovenox daily for VTE prophylaxis. 3. Pain controlled with [place]. 4. Likely discharge to [facility] for continued rehab on 04-05-2019. The pt will remain in Hospital greater than 96 hours while awaiting [facility] placement and for continued therapy and medical management. The pt's case was discussed with Dr. Lu.
[2019-04-04] MEDS: LORazepam 1 MG Tab PO SCH (20:40)
[2019-04-05] MEDS: Acetaminophen/HYDROcodone 325-5 MG Tab PO PRN ×2 (04:25→09:52)
--- NOTE | 2019-04-05 06:31 | PCM.CONSN ---
- General Info Date of Service: 04/05/19 Admission Dx/Problem (Free Text): Admission Diagnosis/Problem Admission Diagnosis/Problem Osteoarthritis of knee Subjective Update: 04/03/19: In to see Rossy. She is doing well. Nursing reports she has worsening confusion at night but during the day she is A&OX3 during the day and very pleasant. Pain has been controlled and her nausea has resolved. She is eating and drinking well. She is ambulating and working with therapies. She has urinated. She is off of oxygen. PT/OT continues to recommend SNF placement. SW has been working on getting her accepted. 04/04/19: Rossy is lying in bed eating. She reports she feels very good and is very happy with how her stay has been thus far. She reports some soreness to her bottom which she says is form sitting so much. Nursing has noted no concerns with ulcerations, skin breakdown, etc. She reports her pain has been fairly controlled. She remains confused in the evenings and overnight and A&OX3 during the day. Discussed elevated anion gap with Dr. Myers. At this point we will continue current plan and encourage oral hydration. Labs and vital signs remain stable. Creatinine appears to be within her normal baseline. Planning on discharge tomorrow to [facility] for rehab stay. 04/05/19: In to see Rossy. She is lying in bed. She is somewhat tearful and reports this is due to her concerns over leaving as she has had such a good experience here. We discussed her plan for a rehab stay and then hopefully back to [place]. She was happy with this. Clinically she looks good. Labs and vital signs remain stable with a creatinine of 1.8 today. She will be discharged today pending primary team and PT/OT agreement. Functional Status: Reports: Pain Controlled, Tolerating Diet, Ambulating, Urinating, Incentive Spirometry. Denies: New Symptoms - Review of Systems General: Reports: No Symptoms. Denies: Fever, Weakness, Fatigue, Malaise, Chills HEENT: Reports: No Symptoms. Denies: Headaches, Sore Throat Pulmonary: Reports: No Symptoms. Denies: Shortness of Breath, Pleuritic Chest Pain, Cough, Wheezing Cardiovascular: Reports: No Symptoms. Denies: Chest Pain, Palpitations, Dyspnea on Exertion, Edema Gastrointestinal: Reports: No Symptoms. Denies: Abdominal Pain, Constipation, Diarrhea, Nausea, Vomiting Genitourinary: Reports: No Symptoms. Denies: Pain Musculoskeletal: Reports: Leg Pain Skin: Reports: No Symptoms. Denies: Cyanosis Neurological: Reports: Confusion (waxes and wanes) Psychiatric: Reports: No Symptoms - Patient Data Vitals - Most Recent: Last Vital Signs Temp 97.9 F 04/05/19 04:07 Pulse 110 H 04/05/19 04:07 Resp 18 04/05/19 04:07 BP 133/95 H 04/05/19 04:07 Pulse Ox 93 L 04/05/19 04:07 Weight - Most Recent: 155 lb 9 oz I&O - Last 24 Hours: Intake & Output 04/04/19 04/04/19 04/05/19 14:59 22:59 06:59 Intake Total 653 165 8363 Output Total 400 400 Balance -077 119 0658 Lab Results Last 24 Hours: Laboratory Results - last 24 hr 04/04/19 04/04/19 04/05/19 Range/Units 05:10 05:10 04:40 WBC 9.36 (3.98-10.04) K/mm3 RBC 3.93 L (3.98-5.22) M/mm3 Hgb 10.9 L (11.2-15.7) gm/L Hct 33.8 L (34.1-44.9) % MCV 86.0 (79.4-94.8) fl MCH 27.7 (25.6-32.2) pg MCHC 32.2 (32.2-35.5) g/dl RDW Std Deviation 44.3 (36.4-46.3) fL Plt Count 212 (182-369) K/mm3 MPV 11.1 (9.4-12.3) fl Neut % (Auto) 69.8 (34.0-71.1) % Lymph % (Auto) 13.6 L (19.3-51.7) % [place] % (Auto) 14.2 H (4.7-12.5) % Eos % (Auto) 2.0 (0.7-5.8) Baso % (Auto) 0.2 (0.1-1.2) % Neut # (Auto) 6.53 H (1.56-6.13) K/mm3 Lymph # (Auto) 1.27 (1.18-3.74) K/mm3 [place] # (Auto) 1.33 H (0.24-0.36) K/mm3 Eos # (Auto) 0.19 (0.04-0.36) K/mm3 Baso # (Auto) 0.02 (0.01-0.08) K/mm3 Manual Slide Review Normal smear Sodium 141 (136-145) mEq/L Potassium 3.9 (3.5-5.1) mEq/L Chloride 105 (98-107) mEq/L Carbon Dioxide 22 (21-32) mEq/L Anion Gap 17.9 H (5-15) BUN 29 H (7-18) mg/dL Creatinine 2.1 H (0.55-1.02) mg/dL Est Cr Clr Drug Dosing 23.02 mL/min Estimated GFR (MDRD) 23 (>60) mL/min BUN/Creatinine Ratio 13.8 L (14-18) Glucose 97 (83-115) mg/dL Calcium 9.1 (8.5-10.1) mg/dL Magnesium 2.0 (1.8-2.4) mg/dl Total Bilirubin 0.4 (0.2-1.0) mg/dL AST 47 H (15-37) U/L ALT 11 L (14-59) U/L Alkaline Phosphatase 74 (46-116) U/L Total Protein 6.9 (6.4-8.2) g/dl Albumin 3.2 L (3.4-5.0) g/dl Globulin 3.7 gm/dL Albumin/Globulin Ratio 0.9 L (1-2) 04/05/19 Range/Units 04:40 WBC (3.98-10.04) K/mm3 RBC (3.98-5.22) M/mm3 Hgb (11.2-15.7) gm/L Hct (34.1-44.9) % MCV (79.4-94.8) fl MCH (25.6-32.2) pg MCHC (32.2-35.5) g/dl RDW Std Deviation (36.4-46.3) fL Plt Count (182-369) K/mm3 MPV (9.4-12.3) fl Neut % (Auto) (34.0-71.1) % Lymph % (Auto) (19.3-51.7) % [place] % (Auto) (4.7-12.5) % Eos % (Auto) (0.7-5.8) Baso % (Auto) (0.1-1.2) % Neut # (Auto) (1.56-6.13) K/mm3 Lymph # (Auto) (1.18-3.74) K/mm3 [place] # (Auto) (0.24-0.36) K/mm3 Eos # (Auto) (0.04-0.36) K/mm3 Baso # (Auto) (0.01-0.08) K/mm3 Manual Slide Review Sodium 143 (136-145) mEq/L Potassium 3.6 (3.5-5.1) mEq/L Chloride 107 (98-107) mEq/L Carbon Dioxide 21 (21-32) mEq/L Anion Gap 18.6 H (5-15) BUN 31 H (7-18) mg/dL Creatinine 1.8 H (0.55-1.02) mg/dL Est Cr Clr Drug Dosing 20.28 mL/min Estimated GFR (MDRD) 27 (>60) mL/min BUN/Creatinine Ratio 17.2 (14-18) Glucose 93 (83-115) mg/dL Calcium 9.2 (8.5-10.1) mg/dL Magnesium 1.8 (1.8-2.4) mg/dl Total Bilirubin 0.5 (0.2-1.0) mg/dL AST 46 H (15-37) U/L ALT 14 (14-59) U/L Alkaline Phosphatase 70 (46-116) U/L Total Protein 6.6 (6.4-8.2) g/dl Albumin 2.9 L (3.4-5.0) g/dl Globulin 3.7 gm/dL Albumin/Globulin Ratio 0.8 L (1-2) Med Orders - Current: Current Medications Hydrocodone Bitart/Acetaminophen ([place] 325-5 Mg) 1 - 2 tab PO Q4H PRN PRN Reason: Pain Last Admin: 04/05/19 04:25 Dose: 2 tab Aripiprazole (Abilify) 2.5 mg PO DAILY JAY Last Admin: 04/04/19 09:03 Dose: 2.5 mg Aspirin (Aspirin) 81 mg PO DAILY [facility] Last Admin: 04/04/19 09:02 Dose: 81 mg Bisacodyl (Dulcolax) 5 mg PO DAILY PRN PRN Reason: Constipation Cholecalciferol (Vitamin D3) 5,000 unit PO DAILY [facility] Last Admin: 04/04/19 09:05 Dose: 5,000 unit Docusate Sodium (Colace) 100 mg PO BID [facility] Last Admin: 04/04/19 20:48 Dose: 100 mg Enoxaparin Sodium (Lovenox) 30 mg SUBCUT Q24H [facility] Last Admin: 04/04/19 13:07 Dose: 30 mg Hydromorphone HCl (Dilaudid) 0.2 mg IVPUSH Q2H PRN PRN Reason: Pain (moderate 4-6) Last Admin: 04/03/19 00:24 Dose: 0.2 mg Levothyroxine Sodium (Levothyroxine) 25 mcg PO DAILY [facility] Last Admin: 04/04/19 09:04 Dose: 25 mcg Loperamide HCl (Imodium) 2 mg PO ASDIRECTED PRN PRN Reason: Diarrhea Lorazepam (Ativan) 0.5 mg PO DAILY [facility] Last Admin: 04/04/19 08:54 Dose: 0.5 mg Lorazepam (Ativan) 1 mg PO BEDTIME [facility] Last Admin: 04/04/19 20:40 Dose: 1 mg Metoprolol Succinate (Toprol Xl) 25 mg PO DAILY [facility] Last Admin: 04/04/19 09:05 Dose: 25 mg Naloxone HCl (Narcan) 0.1 mg IVPUSH Q5M PRN PRN Reason: Oversedation Omeprazole (Omeprazole) 20 mg PO DAILY [facility] Ondansetron HCl (Zofran) 4 mg IVPUSH Q6H PRN PRN Reason: Nausea/Vomiting Last Admin: 04/03/19 08:12 Dose: 4 mg Polysaccharide Iron Complex (Ferrex 150) 150 mg PO DAILY [facility] Last Admin: 04/04/19 09:08 Dose: 150 mg Psyllium Husk (Metamucil Sugar Free) 1 packet PO DAILY PRN PRN Reason: Constipation Senna (Senna) 8.6 mg PO BID PRN PRN Reason: Constipation Sodium Bicarbonate (Sodium Bicarbonate) 325 mg PO BID [facility] Last Admin: 04/04/19 20:41 Dose: 325 mg Discontinued Medications Aspirin (Halfprin) 81 mg PO BID JAY Last Admin: 04/03/19 08:01 Dose: 81 mg Bupivacaine HCl (Marcaine 0.25%) Confirm Administered Dose 30 ml .ROUTE .STK- MED ONE Stop: 04/02/19 07:16 Last Admin: 04/02/19 09:56 Dose: 20 ml Cefazolin Sodium (Ancef) Confirm Administered Dose 2 gm .ROUTE .STK-MED ONE Stop: 04/02/19 07:16 Last Admin: 04/02/19 09:51 Dose: 2 gm Cefazolin Sodium (Ancef) Confirm Administered Dose 1 gm .ROUTE .STK-MED ONE Stop: 04/02/19 07:22 Cefazolin Sodium (Ancef) Confirm Administered Dose 1 gm .ROUTE .STK-MED ONE Stop: 04/02/19 07:46 Clindamycin Phosphate (Cleocin) Confirm Administered Dose 900 mg .ROUTE .STK- MED ONE Stop: 04/02/19 07:15 Morphine Sulfate 8 mg/Epinephrine HCl 0.3 mg/Cefuroxime Sodium 750 mg/Sodium Chloride 28.9 ml 0 mg .XX ONETIME ONE Stop: 04/02/19 09:31 Last Admin: 04/02/19 19:46 Dose: Not Given Cyclobenzaprine HCl (Flexeril) 10 mg PO TID PRN PRN Reason: Spasms Diclofenac Sodium (Voltaren 1% Gel) gm TOP QID PRN PRN Reason: Pain Epinephrine HCl (Adrenalin) Confirm Administered Dose 1 mg .ROUTE .STK-MED ONE Stop: 04/02/19 07:42 Epinephrine HCl (Epipen) mg IM ONETIME PRN PRN Reason: anaphylaxis Fentanyl (Sublimaze) Confirm Administered Dose 100 mcg .ROUTE .STK-MED ONE Stop: 04/02/19 07:22 Fentanyl (Sublimaze) Confirm Administered Dose 100 mcg .ROUTE .STK-MED ONE Stop: 04/02/19 08:51 Fentanyl (Sublimaze) Confirm Administered Dose 100 mcg .ROUTE .STK-MED ONE Stop: 04/02/19 10:42 Glycopyrrolate () Confirm Administered Dose 1 mg .ROUTE .STK-MED ONE Stop: 04/02/19 08:55 Hydromorphone HCl (Dilaudid) Confirm Administered Dose 0.5 mg .ROUTE .STK-MED ONE Stop: 04/02/19 09:54 Hydromorphone HCl (Dilaudid) Confirm Administered Dose 0.5 mg .ROUTE .STK-MED ONE Stop: 04/02/19 09:55 Hydromorphone HCl (Dilaudid) Confirm Administered Dose 0.5 mg .ROUTE .STK-MED ONE Stop: 04/02/19 10:41 Hydromorphone HCl (Dilaudid) Confirm Administered Dose 0.5 mg .ROUTE .STK-MED ONE Stop: 04/02/19 10:42 Lactated Ringer's (Ringers, Lactated) 1,000 mls @ 125 mls/hr IV ASDIRECTED [facility] Stop: 04/02/19 23:00 Cefazolin Sodium/Dextrose 2 gm (/ Premix) 50 mls @ 100 mls/hr IV Q8H [facility] Stop: 04/03/19 07:29 Last Admin: 04/03/19 06:05 Dose: 100 mls/hr Sodium Chloride (Normal Saline) 1,000 mls @ 125 mls/hr IV ASDIRECTED [facility] Stop: 04/02/19 23:00 Last Admin: 04/02/19 13:35 Dose: 125 mls/hr Magnesium Sulfate 2 gm/ Premix 50 mls @ 25 mls/hr IV ONETIME ONE Stop: 04/03/19 08:23 Last Admin: 04/03/19 07:50 Dose: 25 mls/hr Iodine (Iodine 2% Mild Tincture) Confirm Administered Dose 30 ml .ROUTE .STK- MED ONE Stop: 04/02/19 07:16 Last Admin: 04/02/19 09:48 Dose: 18 ml Labetalol HCl (Normodyne) Confirm Administered Dose 100 mg .ROUTE .STK-MED ONE Stop: 04/02/19 09:20 Lidocaine/Sodium Bicarbonate (Buffered Lidocaine 1% In Ns 8.4%) 0.25 ml IDERM ONETIME PRN PRN Reason: Prior to IV Start Stop: 04/02/19 18:00 Last Admin: 04/02/19 07:40 Dose: 0.25 ml Lorazepam (Ativan) 0.5 mg PO ONETIME ONE Stop: 04/02/19 14:31 Last Admin: 04/02/19 15:11 Dose: 0.5 mg Meperidine HCl (Meperidine) 25 mg IVPUSH ONETIME PRN PRN Reason: Tremors Stop: 04/02/19 14:00 Last Admin: 04/02/19 11:30 Dose: 25 mg Midazolam HCl (Versed 1 Mg/Ml) Confirm Administered Dose 2 mg .ROUTE .STK-MED ONE Stop: 04/02/19 08:48 Non-Formulary Medication (Mometasone Furoate [Elocon]) 1 dose TOP ASDIRECTED PRN PRN Reason: skin complications Omeprazole (Omeprazole) 20 mg .XX DAILY [facility] Last Admin: 04/04/19 09:10 Dose: 20 mg Omeprazole (Omeprazole) 20 mg PO DAILY [facility] Ondansetron HCl (Zofran) Confirm Administered Dose 4 mg .ROUTE .STK-MED ONE Stop: 04/02/19 09:22 Pantoprazole Sodium (Protonix) 40 mg PO DAILY [facility] Last Admin: 04/03/19 08:01 Dose: 40 mg Phenylephrine HCl (Phenylephrine In Ns 100 Mcg/Ml) Confirm Administered Dose 1 mg .ROUTE .STK-MED ONE Stop: 04/02/19 08:52 Propofol (Diprivan 20 Ml) Confirm Administered Dose 200 mg .ROUTE .STK-MED ONE Stop: 04/02/19 08:41 Rocuronium [place] (Zemuron) Confirm Administered Dose 50 mg .ROUTE .STK-MED ONE Stop: 04/02/19 08:49 Ropivacaine (Naropin 0.5%) Confirm Administered Dose 30 ml .ROUTE .STK-MED ONE Stop: 04/02/19 07:42 Sodium Chloride (Saline Flush) 10 ml FLUSH ASDIRECTED PRN PRN Reason: Keep Vein Open Stop: 04/02/19 18:00 Tranexamic Acid (Cyklokapron) Confirm Administered Dose 1,000 mg .ROUTE .STK- MED ONE Stop: 04/02/19 07:15 Last Admin: 04/02/19 10:04 Dose: 1,000 mg Vancomycin HCl (Vancomycin) Confirm Administered Dose 1 gm .ROUTE .STK-MED ONE Stop: 04/02/19 07:15 Last Admin: 04/02/19 09:59 Dose: 1 gm - Exam Quality Assessment: DVT Prophylaxis General: Alert, Oriented, Cooperative, No Acute Distress HEENT: Pupils Equal, Pupils Reactive, EOMI, Mucous Membr. Moist/[place] Neck: Supple, Trachea Midline Lungs: Clear to Auscultation, Normal Respiratory Effort Cardiovascular: Regular Rate, Regular Rhythm GI/Abdominal Exam: Normal Bowel Sounds, Soft, Non-Tender, No Distention, No Abnormal Bruit (Female) Exam: Deferred Back Exam: Normal Inspection, Full Range of Motion Extremities: No Pedal Edema, Normal Capillary Refill, Leg Pain, Limited Range of Motion, Other (Bandage in place on right leg. ) Peripheral Pulses: 2+: Radial (L), Radial (R), Dorsalis Pedis (L), Dorsalis Pedis (R) Skin: Warm, Dry, Intact Neurological: No New Focal Deficit Psy/Mental Status: Alert Consult PN Assessment/Plan POD#: 3 Procedures: Procedures ANTINUCLEAR ANTIBODIES (06/23/18) ASSAY NEPHELOMETRY NOT SPEC (06/23/18) ASSAY OF AMYLASE (01/15/15) ASSAY OF BLOOD/URIC ACID (06/23/18) ASSAY OF CREATININE (01/03/15) ASSAY OF FERRITIN (06/23/18) ASSAY OF IRON (06/23/18) ASSAY OF LIPASE (10/19/17) ASSAY OF PARATHORMONE (06/23/18) ASSAY OF PROTEIN URINE (06/23/18) ASSAY OF TRANSFERRIN (06/23/18) ASSAY OF TROPONIN QUANT (10/19/17) ASSAY OF URINE CREATININE (06/23/18) C-REACTIVE PROTEIN (10/19/17) CARDIOVASCULAR STRESS TEST (09/24/16) CHEST X-RAY 1 VIEW FRONTAL (01/15/15) COMP SCREEN MAMMOGRAM ADD-ON (06/14/16) COMPLEMENT ANTIGEN (06/23/18) COMPLETE CBC W/AUTO DIFF WBC (10/11/18) COMPREHEN METABOLIC PANEL (10/19/17) CT ABD & PELVIS W/O CONTRAST (01/26/16) CULTURE AEROBIC IDENTIFY (08/03/14) ELECTROCARDIOGRAM TRACING (01/15/15) EMERGENCY DEPT VISIT (09/07/18) EMERGENCY DEPT VISIT (10/19/17) EMERGENCY DEPT VISIT (10/17/17) FLUORESCENT ANTIBODY TITER (06/23/18) HIV-1 AG IA (06/23/18) HT MUSCLE IMAGE SPECT MULT (09/24/16) HYDRATE IV INFUSION ADD-ON (10/19/17) IMMUNOASSAY QUANT NOS NONAB (06/23/18) MICROBE SUSCEPTIBLE PETER (03/27/18) MRI JOINT UPR EXTREM W/O DYE (05/24/14) OFFICE/OUTPATIENT VISIT EST (03/27/18) OT EVALUATION (07/16/14) PROTEIN E-PHORESIS/URINE/CSF (06/23/18) PROTHROMBIN TIME (10/19/17) RENAL FUNCTION PANEL (10/11/18) ROUTINE VENIPUNCTURE (10/11/18) SELF CARE MNGMENT TRAINING (07/16/14) THER/PROPH/DIAG INJ IV PUSH (10/19/17) THER/PROPH/DIAG INJ SC/IM (09/07/18) THERAPEUTIC ACTIVITIES (08/14/14) THERAPEUTIC EXERCISES (08/14/14) ULTRASOUND THERAPY (07/16/14) URINALYSIS AUTO W/O SCOPE (02/26/15) URINALYSIS AUTO W/SCOPE (06/23/18) URINE BACTERIA CULTURE (03/27/18) URINE CULTURE/COLONY COUNT (03/27/18) US EXAM ABDO BACK WALL DANIELS (06/30/18) VITAMIN D 25 HYDROXY (06/23/18) X-RAY EXAM KNEE 4 OR MORE (09/07/18) X-RAY EXAM OF ANKLE (05/02/18) X-RAY EXAM SERIES ABDOMEN (10/19/17) (1) S/P total knee arthroplasty SNOMED Code(s): 7444558574534, 785843269, 7945710205387 Code(s): Z96.659 - PRESENCE OF UNSPECIFIED ARTIFICIAL KNEE JOINT Priority: High Current Visit: Yes Qualifiers: Laterality: right Qualified Code(s): Z96.651 - Presence of right artificial knee joint (2) HTN (hypertension) SNOMED Code(s): 31740677 Code(s): I10 - ESSENTIAL (PRIMARY) HYPERTENSION Priority: Medium Current Visit: No Qualifiers: Hypertension type: unspecified Qualified Code(s): I10 - Essential (primary ) hypertension (3) HLD (hyperlipidemia) SNOMED Code(s): 73493306 Code(s): E78.5 - HYPERLIPIDEMIA, UNSPECIFIED Priority: Low Current Visit : No Qualifiers: Hyperlipidemia type: unspecified Qualified Code(s): E78.5 - Hyperlipidemia , unspecified (4) CAD (coronary artery disease) SNOMED Code(s): 19462651 Code(s): I25.10 - ATHSCL HEART DISEASE OF [place] CORONARY ARTERY W/O ANG PCTRS Priority: Medium Current Visit: No Qualifiers: Coronary Disease-Associated Artery/Lesion type: unspecified vessel or lesion type [place] vs. transplanted heart: [place] heart Associated angina: angina presence unspecified Qualified Code(s): I25.10 - Atherosclerotic heart disease of [place] coronary artery without angina pectoris (5) Hypothyroidism SNOMED Code(s): 80673059 Code(s): E03.9 - HYPOTHYROIDISM, UNSPECIFIED Priority: Low Current Visit : No Qualifiers: Hypothyroidism type: unspecified Qualified Code(s): E03.9 - Hypothyroidism , unspecified (6) Osteopenia SNOMED Code(s): 139245112 Code(s): M85.80 - OTH DISRD OF BONE DENSITY AND STRUCTURE, UNSPECIFIED SITE Priority: Low Current Visit: No Qualifiers: Osteopenia location: unspecified Qualified Code(s): M85.80 - Other specified disorders of bone density and structure, unspecified site (7) H/O parathyroidectomy SNOMED Code(s): 003622181721959, 511306505122546 Code(s): Z98.890 - OTHER SPECIFIED POSTPROCEDURAL STATES Priority: Low Current Visit: No (8) Iron deficiency anemia SNOMED Code(s): 85157772 Code(s): D50.9 - IRON DEFICIENCY ANEMIA, UNSPECIFIED Priority: Medium Current Visit: No Qualifiers: Iron deficiency anemia type: unspecified iron deficiency Qualified Code(s) : D50.9 - Iron deficiency anemia, unspecified (9) Chronic migraine SNOMED Code(s): 991887062 Code(s): G43.709 - CHRONIC MIGRAINE W/O AURA, NOT INTRACTABLE, W/O STAT MIGR Priority: Low Current Visit: No (10) IBS (irritable bowel syndrome) SNOMED Code(s): 81117204 Code(s): K58.9 - IRRITABLE BOWEL SYNDROME WITHOUT DIARRHEA Priority: Medium Current Visit: No Qualifiers: Irritable bowel syndrome type: unspecified Qualified Code(s): K58.9 - Irritable bowel syndrome without diarrhea (11) Crohns disease SNOMED Code(s): 01447470 Code(s): K50.90 - CROHN'S DISEASE, UNSPECIFIED, WITHOUT COMPLICATIONS Priority: Low Current Visit: No Qualifiers: Gastrointestinal tract location: unspecified location Digestive disease complication type: unspecified complication Qualified Code(s): K50.919 - Crohn 's disease, unspecified, with unspecified complications (12) Bipolar 1 disorder SNOMED Code(s): 476079070 Code(s): F31.9 - BIPOLAR DISORDER, UNSPECIFIED Priority: Low Current Visit: No (13) Chronic GERD SNOMED Code(s): 326450530, 762675973 Code(s): K21.9 - GASTRO-ESOPHAGEAL REFLUX DISEASE WITHOUT ESOPHAGITIS Priority: Low Current Visit: No (14) Elevated serum creatinine SNOMED Code(s): 770275815 Code(s): R79.89 - OTHER SPECIFIED ABNORMAL FINDINGS OF BLOOD CHEMISTRY Priority: Medium Current Visit: Yes (15) Osteoarthritis of right knee SNOMED Code(s): 445562581849321 Code(s): M17.11 - UNILATERAL PRIMARY OSTEOARTHRITIS, RIGHT KNEE Priority: High Current Visit: Yes Qualifiers: Osteoarthritis type: primary Qualified Code(s): M17.11 - Unilateral primary osteoarthritis, right knee (16) Renal insufficiency SNOMED Code(s): 427927281, 728848891 Code(s): N28.9 - DISORDER OF KIDNEY AND URETER, UNSPECIFIED Priority: High Current Visit: Yes Problem List Initiated/Reviewed/Updated: Yes My Orders Last 24 Hours: My Active Orders 04/06/19 05:11 CBC WITH AUTO DIFF [HEME] AM CMP [COMPREHENSIVE METABOLIC PN,CMP] [CHEM] AM MAGNESIUM [CHEM] AM Plan: I/P: Acute: S/P right total knee arthroplasty - post-operative day 3 -DVT prophylaxis and pain management per primary care team -PT/OT -IS/RT -Monitor oxygen saturation -Titrate oxygen as needed -Home medications reviewed -Vital signs stable -Monitor labs -Pre-operative Hgb was 11.7; Now 10.9-->10.7-->10.9 -Pre-operative GFR was 24; Now 24-->21-->27 -Pre-operative creatinine was 2.0; Now 2.0-->2.3-->1.8 -Pre-operative BUN was 24; Now 24-->29-->31 -Pre-operative 12-lead EKG shows sinus rhythm with RBBB and LAFB Osteoarthritis of right knee -Pain management per primary care team Chronic: Stage IV CKD HTN HLD CAD Hypothyroidism GERD Osteopenia Parathyroidectomy Iron deficiency anemia Migraines Varicose Veins Chronic Diarrhea IBS Crohn's Disease [place] neuropathy Anxiety Bipolar disorder depression osteopenia DJD Plan: CM for discharge planning GI prophylaxis Home medications as indicated Other orders as listed above Routine AM labs She is a full code. Her PCP is Dr. Winchester. Dr. Swenson is her computer engineering professor Currently Rossy resides in [facility] facility and it is felt she will require more care post-surgical. It is felt she will benefit from a SNF rehab stay after discharge. It is also felt she will only require these services for 30 days or less. Overall from a hospitalist standpoint Rossy is doing well. She has been up ambulating and working with therapies, who are recommending a SNF rehab stay. She is off of oxygen and has urinated. Pain is controlled. Labs and vital signs remain stable. She is utilizing her IS. She is cleared for discharge pending primary team and PT/OT agreement. Thank you for allowing us to participate in the care of this patient!!
--- NOTE | 2019-04-05 07:16 | PCM.OPNOTE ---
- General Post-Op/Procedure Note Date of Surgery/Procedure: 04/02/19 Operative Procedure(s): right total knee arthroplasty Pre Op Diagnosis: right knee osteoarthritis Post-Op Diagnosis: Same Anesthesia Technique: Local, MAC, Spinal Primary Surgeon: Kendell Lu Anesthesia Provider: Linden Olivera Gun Numberer: Kellie Syed Gun Numberer: June Schrader EBRc in mLs: 5 Complications: None Condition: Good Free Text/Narrative:: Intake & Output 04/04/19 04/05/19 04/05/19 22:59 06:59 14:59 Intake Total 920 1000 Output Total 400 Balance 520 1000 size 4 femur size 3 tibia 9mm 35x10
[2019-04-05 07:55] VITALS: BP 136/67
--- NOTE | 2019-04-05 07:55 | OR ---
DATE OF OPERATION: 04/02/2019 SURGEON: Kendell Lu MD OPERATION PERFORMED: Right total knee arthroplasty. PREOPERATIVE DIAGNOSIS: Right knee osteoarthrosis. POSTOPERATIVE DIAGNOSIS: Right knee osteoarthrosis. ANESTHESIA: Local MAC with spinal. ANESTHESIA PROVIDER: Linden Olivera. MACHINE CLOTH EXAMINER: Kellie Syed PA-C, and June Schrader LPN. ESTIMATED BLOOD LOSS: Less than 5 mL. COMPLICATIONS: None. CONDITION: Stable. IMPLANTS: 1. Elizabeth size 4 cemented PS femur. 2. Elizabeth size 3 cemented universal tibial base plate. 3. Fay size 3 9 mm PS X3 polyethylene insert. 4. Elizabeth size 35 x 10 mm cemented asymmetric patella. DESCRIPTION OF PROCEDURE: The patient was identified in the preop holding area. Proper site was marked and identified by the surgeon. The patient was taken back to the operating theater. After adequate anesthesia, the patient's right lower extremity had a nonsterile tourniquet applied and it was sterilely prepped and draped in the usual sterile fashion. OR time-out was performed. The patient received 2 g IV Ancef. At this time, the right lower extremity was exsanguinated. Tourniquet was insufflated to 300 mmHg. Standard medial parapatellar incision was made. Medial parapatellar arthrotomy was created. Deep fibers of the MCL were raised and anterior fat pad was resected. At this time, attention was turned to the patella. Patella measured 23, it was resected to a 13 for a 35 x 10 mm patella. Drill holes were then drilled and found to be in adequate position. The drill was then drilled in the distal femur and the intramedullary distal femoral cutting guide was then placed. 8 mm was resected off the distal femur and was found to be an adequate resection. Sizing guide was placed. It was found to be a size 4 cemented PS femur that was shown on the implant record at the beginning of this dictation. The drill holes were drilled for the epicondylar axis using Whitesides line and epicondyles as reference. At this time, the 4-in-1 cutting block was placed. An anterior posterior and anterior and posterior chamfer cuts were then completed. Box cut was completed at this time. Attention was turned to the tibia. The posterior medial lateral retractors were placed. The extramedullary tibial guide was placed. It was placed in the old footprint of the ACL. It was aligned with the center of the ankle and 0 degrees of slope, 9 mm was then resected off the unaffected side. There was found to be an acceptable reduction. At this time, posterior osteophytes were removed along with medial and lateral meniscus. A trial implant was placed with a correct sized tibia that was mentioned at the beginning of the dictation. A Fay size 3 9 mm PS X3 polyethylene insert was then placed. The patient's knee was brought through range of motion. The patella was tracking centrally and was stable to varus and valgus stress. Alignment was found to be roughly at 0 degrees. The tibia was stamped and drilled in proper rotation. Cement was mixed on the back table. The universal tibial base plate was impacted in place. Next, the Fay size 4 cemented PS femur impacted into place and the Fay size 3 9 mm PS X3 polyethylene insert was placed. The patient's knee was brought into full extension. The patella was then cemented in place at this time. One liter dilute Betadine solution was irrigated through the knee along with 3 L of pulse lavage irrigation with Ancef. Periarticular injection was then completed. The patient's knee was brought through a range of motion. Once the cement had time to set up and it was found to be stable to varus valgus stress, the patella was tracking centrally with full range of motion. At this time, a #2 barbed suture was used for closure of the medial parapatellar arthrotomy. Topical tranexamic acid was placed. 2-0 Vicryl was used subcutaneously, Prineo was used for the skin. The patient tolerated the procedure well and was sent to the PACU in stable condition. NEVILLE /[id number] DEX
[2019-04-05] MEDS ORDERED: Omeprazole 20 MG Cap.CR PO SCH (09:00)
[2019-04-05] MEDS: ARIPiprazole 5 MG Tab PO SCH (09:53)
[2019-04-05] MEDS: Levothyroxine 25 MCG Tab PO SCH (09:53)
[2019-04-05] MEDS: Iron Polysaccharides Complex 150 MG Cap PO SCH (09:53)
[2019-04-05] MEDS: Metoprolol Succinate 25 MG Tab.ER PO SCH (09:54)
[2019-04-05] MEDS: LORazepam 0.5 MG Tab PO SCH (09:54)
[2019-04-05] MEDS: Aspirin 81 MG Tab.Chew PO SCH (09:54)
[2019-04-05] MEDS: Docusate Sodium 100 MG Cap PO SCH (09:54)
[2019-04-05] MEDS: Cholecalciferol (Vitamin D3) 5,000 UNIT Tab PO SCH (09:54)
[2019-04-05] MEDS: Sodium Bicarbonate 650 MG Tab PO SCH (09:55)
--- NOTE | 2019-04-05 11:47 | PCM.SURGPN ---
- General Info Date of Service: 04/05/19 Functional Status: Reports: Pain Controlled, Tolerating Diet, Ambulating, Urinating, Incentive Spirometry, Other (The pt states she is doing well. She states she is prepared for discharge to shelter for continued rehabilitation.) - Patient Data Vitals - Most Recent: Last Vital Signs Temp 98.4 F 04/05/19 07:09 Pulse 85 04/05/19 09:54 Resp 16 04/05/19 07:09 BP 136/67 04/05/19 09:54 Pulse Ox 94 L 04/05/19 07:09 Weight - Most Recent: 155 lb 9 oz I&O - Last 24 Hours: Intake & Output 04/04/19 04/05/19 04/05/19 22:59 06:59 14:59 Intake Total 920 1000 180 Output Total 400 Balance 520 1000 180 Lab Results Last 24 Hrs: Laboratory Results - last 24 hr 04/05/19 04/05/19 Range/Units 04:40 04:40 WBC 9.36 (3.98-10.04) K/mm3 RBC 3.93 L (3.98-5.22) M/mm3 Hgb 10.9 L (11.2-15.7) gm/L Hct 33.8 L (34.1-44.9) % MCV 86.0 (79.4-94.8) fl MCH 27.7 (25.6-32.2) pg MCHC 32.2 (32.2-35.5) g/dl RDW Std Deviation 44.3 (36.4-46.3) fL Plt Count 212 (182-369) K/mm3 MPV 11.1 (9.4-12.3) fl Neut % (Auto) 69.8 (34.0-71.1) % Lymph % (Auto) 13.6 L (19.3-51.7) % [place] % (Auto) 14.2 H (4.7-12.5) % Eos % (Auto) 2.0 (0.7-5.8) Baso % (Auto) 0.2 (0.1-1.2) % Neut # (Auto) 6.53 H (1.56-6.13) K/mm3 Lymph # (Auto) 1.27 (1.18-3.74) K/mm3 [place] # (Auto) 1.33 H (0.24-0.36) K/mm3 Eos # (Auto) 0.19 (0.04-0.36) K/mm3 Baso # (Auto) 0.02 (0.01-0.08) K/mm3 Sodium 143 (136-145) mEq/L Potassium 3.6 (3.5-5.1) mEq/L Chloride 107 (98-107) mEq/L Carbon Dioxide 21 (21-32) mEq/L Anion Gap 18.6 H (5-15) BUN 31 H (7-18) mg/dL Creatinine 1.8 H (0.55-1.02) mg/dL Est Cr Clr Drug Dosing 20.28 mL/min Estimated GFR (MDRD) 27 (>60) mL/min BUN/Creatinine Ratio 17.2 (14-18) Glucose 93 (83-115) mg/dL Calcium 9.2 (8.5-10.1) mg/dL Magnesium 1.8 (1.8-2.4) mg/dl Total Bilirubin 0.5 (0.2-1.0) mg/dL AST 46 H (15-37) U/L ALT 14 (14-59) U/L Alkaline Phosphatase 70 (46-116) U/L Total Protein 6.6 (6.4-8.2) g/dl Albumin 2.9 L (3.4-5.0) g/dl Globulin 3.7 gm/dL Albumin/Globulin Ratio 0.8 L (1-2) Med Orders - Current: Current Medications Hydrocodone Bitart/Acetaminophen ([place] 325-5 Mg) 1 - 2 tab PO Q4H PRN PRN Reason: Pain Last Admin: 04/05/19 09:52 Dose: 2 tab Aripiprazole (Abilify) 2.5 mg PO DAILY JAY Last Admin: 04/05/19 09:53 Dose: 2.5 mg Aspirin (Aspirin) 81 mg PO DAILY JAY Last Admin: 04/05/19 09:54 Dose: 81 mg Bisacodyl (Dulcolax) 5 mg PO DAILY PRN PRN Reason: Constipation Cholecalciferol (Vitamin D3) 5,000 unit PO DAILY JAY Last Admin: 04/05/19 09:54 Dose: 5,000 unit Docusate Sodium (Colace) 100 mg PO BID JAY Last Admin: 04/05/19 09:54 Dose: 100 mg Enoxaparin Sodium (Lovenox) 30 mg SUBCUT Q24H [facility] Last Admin: 04/04/19 13:07 Dose: 30 mg Hydromorphone HCl (Dilaudid) 0.2 mg IVPUSH Q2H PRN PRN Reason: Pain (moderate 4-6) Last Admin: 04/03/19 00:24 Dose: 0.2 mg Levothyroxine Sodium (Levothyroxine) 25 mcg PO DAILY [facility] Last Admin: 04/05/19 09:53 Dose: 25 mcg Loperamide HCl (Imodium) 2 mg PO ASDIRECTED PRN PRN Reason: Diarrhea Lorazepam (Ativan) 0.5 mg PO DAILY [facility] Last Admin: 04/05/19 09:54 Dose: 0.5 mg Lorazepam (Ativan) 1 mg PO BEDTIME [facility] Last Admin: 04/04/19 20:40 Dose: 1 mg Metoprolol Succinate (Toprol Xl) 25 mg PO DAILY [facility] Last Admin: 04/05/19 09:54 Dose: 25 mg Naloxone HCl (Narcan) 0.1 mg IVPUSH Q5M PRN PRN Reason: Oversedation Omeprazole (Omeprazole) 20 mg PO DAILY [facility] Last Admin: 04/05/19 09:56 Dose: 20 mg Ondansetron HCl (Zofran) 4 mg IVPUSH Q6H PRN PRN Reason: Nausea/Vomiting Last Admin: 04/03/19 08:12 Dose: 4 mg Polysaccharide Iron Complex (Ferrex 150) 150 mg PO DAILY [facility] Last Admin: 04/05/19 09:53 Dose: 150 mg Psyllium Husk (Metamucil Sugar Free) 1 packet PO DAILY PRN PRN Reason: Constipation Senna (Senna) 8.6 mg PO BID PRN PRN Reason: Constipation Sodium Bicarbonate (Sodium Bicarbonate) 325 mg PO BID [facility] Last Admin: 04/05/19 09:55 Dose: 325 mg Discontinued Medications Aspirin (Halfprin) 81 mg PO BID [facility] Last Admin: 04/03/19 08:01 Dose: 81 mg Bupivacaine HCl (Marcaine 0.25%) Confirm Administered Dose 30 ml .ROUTE .STK- MED ONE Stop: 04/02/19 07:16 Last Admin: 04/02/19 09:56 Dose: 20 ml Cefazolin Sodium (Ancef) Confirm Administered Dose 2 gm .ROUTE .STK-MED ONE Stop: 04/02/19 07:16 Last Admin: 04/02/19 09:51 Dose: 2 gm Cefazolin Sodium (Ancef) Confirm Administered Dose 1 gm .ROUTE .STK-MED ONE Stop: 04/02/19 07:22 Cefazolin Sodium (Ancef) Confirm Administered Dose 1 gm .ROUTE .STK-MED ONE Stop: 04/02/19 07:46 Clindamycin Phosphate (Cleocin) Confirm Administered Dose 900 mg .ROUTE .STK- MED ONE Stop: 04/02/19 07:15 Morphine Sulfate 8 mg/Epinephrine HCl 0.3 mg/Cefuroxime Sodium 750 mg/Sodium Chloride 28.9 ml 0 mg .XX ONETIME ONE Stop: 04/02/19 09:31 Last Admin: 04/02/19 19:46 Dose: Not Given Cyclobenzaprine HCl (Flexeril) 10 mg PO TID PRN PRN Reason: Spasms Diclofenac Sodium (Voltaren 1% Gel) gm TOP QID PRN PRN Reason: Pain Epinephrine HCl (Adrenalin) Confirm Administered Dose 1 mg .ROUTE .STK-MED ONE Stop: 04/02/19 07:42 Epinephrine HCl (Epipen) mg IM ONETIME PRN PRN Reason: anaphylaxis Fentanyl (Sublimaze) Confirm Administered Dose 100 mcg .ROUTE .STK-MED ONE Stop: 04/02/19 07:22 Fentanyl (Sublimaze) Confirm Administered Dose 100 mcg .ROUTE .STK-MED ONE Stop: 04/02/19 08:51 Fentanyl (Sublimaze) Confirm Administered Dose 100 mcg .ROUTE .STK-MED ONE Stop: 04/02/19 10:42 Glycopyrrolate () Confirm Administered Dose 1 mg .ROUTE .STK-MED ONE Stop: 04/02/19 08:55 Hydromorphone HCl (Dilaudid) Confirm Administered Dose 0.5 mg .ROUTE .STK-MED ONE Stop: 04/02/19 09:54 Hydromorphone HCl (Dilaudid) Confirm Administered Dose 0.5 mg .ROUTE .STK-MED ONE Stop: 04/02/19 09:55 Hydromorphone HCl (Dilaudid) Confirm Administered Dose 0.5 mg .ROUTE .STK-MED ONE Stop: 04/02/19 10:41 Hydromorphone HCl (Dilaudid) Confirm Administered Dose 0.5 mg .ROUTE .STK-MED ONE Stop: 04/02/19 10:42 Lactated Ringer's (Ringers, Lactated) 1,000 mls @ 125 mls/hr IV ASDIRECTED [facility] Stop: 04/02/19 23:00 Cefazolin Sodium/Dextrose 2 gm (/ Premix) 50 mls @ 100 mls/hr IV Q8H [facility] Stop: 04/03/19 07:29 Last Admin: 04/03/19 06:05 Dose: 100 mls/hr Sodium Chloride (Normal Saline) 1,000 mls @ 125 mls/hr IV ASDIRECTED [facility] Stop: 04/02/19 23:00 Last Admin: 04/02/19 13:35 Dose: 125 mls/hr Magnesium Sulfate 2 gm/ Premix 50 mls @ 25 mls/hr IV ONETIME ONE Stop: 04/03/19 08:23 Last Admin: 04/03/19 07:50 Dose: 25 mls/hr Iodine (Iodine 2% Mild Tincture) Confirm Administered Dose 30 ml .ROUTE .STK- MED ONE Stop: 04/02/19 07:16 Last Admin: 04/02/19 09:48 Dose: 18 ml Labetalol HCl (Normodyne) Confirm Administered Dose 100 mg .ROUTE .STK-MED ONE Stop: 04/02/19 09:20 Lidocaine/Sodium Bicarbonate (Buffered Lidocaine 1% In Ns 8.4%) 0.25 ml IDERM ONETIME PRN PRN Reason: Prior to IV Start Stop: 04/02/19 18:00 Last Admin: 04/02/19 07:40 Dose: 0.25 ml Lorazepam (Ativan) 0.5 mg PO ONETIME ONE Stop: 04/02/19 14:31 Last Admin: 04/02/19 15:11 Dose: 0.5 mg Meperidine HCl (Meperidine) 25 mg IVPUSH ONETIME PRN PRN Reason: Tremors Stop: 04/02/19 14:00 Last Admin: 04/02/19 11:30 Dose: 25 mg Midazolam HCl (Versed 1 Mg/Ml) Confirm Administered Dose 2 mg .ROUTE .STK-MED ONE Stop: 04/02/19 08:48 Non-Formulary Medication (Mometasone Furoate [Elocon]) 1 dose TOP ASDIRECTED PRN PRN Reason: skin complications Omeprazole (Omeprazole) 20 mg .XX DAILY [facility] Last Admin: 04/04/19 09:10 Dose: 20 mg Omeprazole (Omeprazole) 20 mg PO DAILY [facility] Ondansetron HCl (Zofran) Confirm Administered Dose 4 mg .ROUTE .STK-MED ONE Stop: 04/02/19 09:22 Pantoprazole Sodium (Protonix) 40 mg PO DAILY [facility] Last Admin: 04/03/19 08:01 Dose: 40 mg Phenylephrine HCl (Phenylephrine In Ns 100 Mcg/Ml) Confirm Administered Dose 1 mg .ROUTE .STK-MED ONE Stop: 04/02/19 08:52 Propofol (Diprivan 20 Ml) Confirm Administered Dose 200 mg .ROUTE .STK-MED ONE Stop: 04/02/19 08:41 Rocuronium [place] (Zemuron) Confirm Administered Dose 50 mg .ROUTE .STK-MED ONE Stop: 04/02/19 08:49 Ropivacaine (Naropin 0.5%) Confirm Administered Dose 30 ml .ROUTE .STK-MED ONE Stop: 04/02/19 07:42 Sodium Chloride (Saline Flush) 10 ml FLUSH ASDIRECTED PRN PRN Reason: Keep Vein Open Stop: 04/02/19 18:00 Tranexamic Acid (Cyklokapron) Confirm Administered Dose 1,000 mg .ROUTE .STK- MED ONE Stop: 04/02/19 07:15 Last Admin: 04/02/19 10:04 Dose: 1,000 mg Vancomycin HCl (Vancomycin) Confirm Administered Dose 1 gm .ROUTE .STK-MED ONE Stop: 04/02/19 07:15 Last Admin: 04/02/19 09:59 Dose: 1 gm - Exam Wound/Incisions: Dressing Dry and Intact General: Alert, Cooperative, No Acute Distress Lungs: Normal Respiratory Effort Extremities: Other (NVS intact for BLE. Rian's negative. ) - Problem List Review Problem List Initiated/Reviewed/Updated: Yes - My Orders Last 24 Hours: Active Orders 24 hr Category Date Time Status Communication Order [RC] ASDIRECTED Care 04/05/19 07:07 Active Communication Order [RC] ASDIRECTED Care 04/05/19 07:08 Active Ready for Discharge [RC] PER UNIT ROUTINE Care 04/05/19 07:00 Active CBC WITH AUTO DIFF [HEME] AM Lab 04/06/19 05:11 Ordered CMP [COMPREHENSIVE METABOLIC PN,CMP] [CHEM] AM Lab 04/06/19 05:11 Ordered MAGNESIUM [CHEM] AM Lab 04/06/19 05:11 Ordered Omeprazole Med 04/05/19 09:00 Active 20 mg PO DAILY Medication Orders Hydrocodone Bitart/Acetaminophen ([place] 325-5 Mg) 1 - 2 tab PO Q4H PRN PRN Reason: Pain Last Admin: 04/05/19 09:52 Dose: 2 tab Admin: 04/05/19 04:25 Dose: 2 tab Admin: 04/04/19 20:42 Dose: 2 tab Admin: 04/04/19 14:42 Dose: 2 tab Admin: 04/04/19 04:55 Dose: 2 tab Admin: 04/03/19 23:50 Dose: 2 tab Admin: 04/03/19 17:54 Dose: 1 tab Admin: 04/03/19 15:07 Dose: 1 tab Admin: 04/03/19 11:58 Dose: 1 tab Admin: 04/03/19 09:36 Dose: 2 tab Admin: 04/03/19 04:55 Dose: 1 tab Admin: 04/02/19 13:40 Dose: 2 tab Aripiprazole (Abilify) 2.5 mg PO DAILY [facility] Last Admin: 04/05/19 09:53 Dose: 2.5 mg Admin: 04/04/19 09:03 Dose: 2.5 mg Admin: 04/03/19 08:00 Dose: 2.5 mg Aspirin (Aspirin) 81 mg PO DAILY [facility] Last Admin: 04/05/19 09:54 Dose: 81 mg Admin: 04/04/19 09:02 Dose: 81 mg Bisacodyl (Dulcolax) 5 mg PO DAILY PRN PRN Reason: Constipation Cholecalciferol (Vitamin D3) 5,000 unit PO DAILY [facility] Last Admin: 04/05/19 09:54 Dose: 5,000 unit Admin: 04/04/19 09:05 Dose: 5,000 unit Admin: 04/03/19 08:01 Dose: 5,000 unit Docusate Sodium (Colace) 100 mg PO BID [facility] Last Admin: 04/05/19 09:54 Dose: 100 mg Admin: 04/04/19 20:48 Dose: 100 mg Admin: 04/04/19 09:11 Dose: Not Given Admin: 04/03/19 20:17 Dose: 100 mg Admin: 04/03/19 09:41 Dose: Not Given Admin: 04/02/19 20:40 Dose: Not Given Enoxaparin Sodium (Lovenox) 30 mg SUBCUT Q24H [facility] Last Admin: 04/04/19 13:07 Dose: 30 mg Admin: 04/03/19 13:17 Dose: 30 mg Hydromorphone HCl (Dilaudid) 0.2 mg IVPUSH Q2H PRN PRN Reason: Pain (moderate 4-6) Last Admin: 04/03/19 00:24 Dose: 0.2 mg Admin: 04/02/19 21:48 Dose: 0.2 mg Levothyroxine Sodium (Levothyroxine) 25 mcg PO DAILY [facility] Last Admin: 04/05/19 09:53 Dose: 25 mcg Admin: 04/04/19 09:04 Dose: 25 mcg Admin: 04/03/19 08:00 Dose: 25 mcg Loperamide HCl (Imodium) 2 mg PO ASDIRECTED PRN PRN Reason: Diarrhea Lorazepam (Ativan) 0.5 mg PO DAILY [facility] Last Admin: 04/05/19 09:54 Dose: 0.5 mg Admin: 04/04/19 08:54 Dose: 0.5 mg Admin: 04/03/19 08:02 Dose: 0.5 mg Lorazepam (Ativan) 1 mg PO BEDTIME [facility] Last Admin: 04/04/19 20:40 Dose: 1 mg Admin: 04/03/19 20:17 Dose: 1 mg Admin: 04/02/19 20:43 Dose: 1 mg Metoprolol Succinate (Toprol Xl) 25 mg PO DAILY [facility] Last Admin: 04/05/19 09:54 Dose: 25 mg Admin: 04/04/19 09:05 Dose: 25 mg Admin: 04/03/19 08:02 Dose: 25 mg Naloxone HCl (Narcan) 0.1 mg IVPUSH Q5M PRN PRN Reason: Oversedation Omeprazole (Omeprazole) 20 mg PO DAILY [facility] Last Admin: 04/05/19 09:56 Dose: 20 mg Ondansetron HCl (Zofran) 4 mg IVPUSH Q6H PRN PRN Reason: Nausea/Vomiting Last Admin: 04/03/19 08:12 Dose: 4 mg Admin: 04/02/19 20:36 Dose: 4 mg Admin: 04/02/19 13:40 Dose: 4 mg Polysaccharide Iron Complex (Ferrex 150) 150 mg PO DAILY [facility] Last Admin: 04/05/19 09:53 Dose: 150 mg Admin: 04/04/19 09:08 Dose: 150 mg Admin: 04/03/19 08:01 Dose: 150 mg Psyllium Husk (Metamucil Sugar Free) 1 packet PO DAILY PRN PRN Reason: Constipation Senna (Senna) 8.6 mg PO BID PRN PRN Reason: Constipation Sodium Bicarbonate (Sodium Bicarbonate) 325 mg PO BID [facility] Last Admin: 04/05/19 09:55 Dose: 325 mg Admin: 04/04/19 20:41 Dose: 325 mg Admin: 04/04/19 09:04 Dose: 325 mg Admin: 04/03/19 20:17 Dose: 325 mg Admin: 04/03/19 08:00 Dose: 325 mg Admin: 04/02/19 20:40 Dose: Not Given - Assessment Assessment (Free Text/Narrative):: POD#3 - s/p right TKA - Plan Plan (Free Text/Narrative):: 1. Lovenox for VTE prophylaxis. Frequent mobility, TEDs. 2. [place] for pain management. 3. Discharge to [facility] for continued rehabilitation. Suspect less than 30 day stay at [place]. 4. Pt to f/u with PCP next week. 5. Further orders per Hospitalist service. The pt's case was discussed with Dr. Lu.
--- NOTE | 2019-04-05 11:55 | PCM.DCSUM1 ---
Discharge Summary - Hospital Course Brief History: Rossy is an 83 yo female who underwent right TKA with Dr. Lu on 04-02-2019. The procedure was completed under spinal anesthesia with sedation. The pt tolerated the procedure well and was admitted to the Medical- Surgical Unit. Medical management was provided by the Hospitalist service. The pt's renal status was closely monitored. The pt's Hgb on POD#1 was 10.9. On POD#1, Lovenox 30mg sub-Q daily was initiated for VTE prophylaxis. SCDs and TEDs were also ordered. A Mepilex dressing was placed at the incision site at the time of surgery and remained clean and dry. The pt participated in P.T. and O.T. and progressed well. The pt was allowed to WBAT and used a FWW for mobility. On POD#3, the pt was deemed [facility]. - Discharge Data Discharge Date: 04/05/19 Discharge Disposition: Home, Self-Care 01 Condition: Good - Patient Summary/Data Operative Procedure(s) Performed: right total knee arthroplasty Consults: Consultations 04/02/19 06:59 OT Evaluation and Treatment [CONS] Routine PT Evaluation and Treatment [CONS] Routine 04/02/19 07:02 Consult to Case Management/Shipping Lead [CONS] Routine Consult to Physician [CONS] Routine - Patient Instructions Diet: Usual Diet as Tolerated Activity: Apply Ice, As Tolerated, Elevate Extremity, Full Weight Bearing Activity, Other: Frequent mobility recommended. Driving: Do Not Drive Showering/Bathing: May Shower Wound/Incision Care: Keep Operative Site/Wound Site Clean and Dry, Do NOT Change Dressing Notify Provider of: Fever, Increased Pain, Swelling and Redness, Drainage, Nausea and/or Vomiting Other/Special Instructions: Please get up and moving around EVERY HOUR while awake. Take a short walk every hour while awake. This helps to prevent blood clots. Have help with mobility as needed. Please take 81 mg aspirin daily and the Lovenox as directed. Please wear the HARMEET hose during the day and you may remove them at night. Please schedule for P.T. Complete the P.T. exercises and stretches that were instructed in the Hospital. Please use the pain medication as needed. The medication may cause drowsiness and/or constipation. Contact your primary care provider for further instructions if you are constipated. Discontinue use of the pain medication as soon as able. Please do not use other medications that may cause drowsiness (other pain medications, anxiety pills, sleeping pills, allergy medications that cause drowsiness) while using the pain medication. Please do not use alcohol while using the pain medication. Use the incentive spirometer often. Please place ice to the surgical site often. Place a towel between your skin and the blue pad. Please elevate the limb to decrease swelling. Keep the dressing in place until follow- up. Please notify the Clinic if the dressing is saturated or rolls. If you are a diabetic, please closely monitor your blood sugars and notify your primary care provider of your values. Elevated blood sugars increases the risk of infection. Please call [phone] with questions or concerns. Please have evaluation with your primary care provider in the next week. Your provider will determine if you will require lab testing with the appointment. An evaluation with your primary care provider is suggested due to recent surgery and use of medications initiated at the time of surgery. - Discharge Plan *PRESCRIPTION DRUG MONITORING PROGRAM REVIEWED*: No *COPY OF PRESCRIPTION DRUG MONITORING REPORT IN PATIENT NIDHI: No Prescriptions/Med Rec: Acetaminophen/HYDROcodone [[place] 325-5 MG] 1 - 2 tab PO Q4H PRN #60 tablet PRN Reason: Pain Aspirin 81 mg PO DAILY #30 tab.chew Enoxaparin [Lovenox] 30 mg SUBCUT Q24H #10 syringe Home Medications: Home Meds ARIPiprazole [Aripiprazole] 2.5 mg PO DAILY 03/30/19 [History] Acetaminophen [Tylenol] 650 mg PO Q4HR PRN 03/30/19 [History] Diclofenac Sodium [Voltaren 1% Gel] 1 dose TOP QID PRN 03/30/19 [History] EPINEPHrine [Epipen] 1 dose IM ONETIME PRN 03/30/19 [History] LORazepam 1 mg PO BEDTIME 03/30/19 [History] Levothyroxine 25 mcg PO DAILY 03/30/19 [History] Loperamide [Imodium AD] 2 mg PO ASDIRECTED PRN 03/30/19 [History] Metoprolol Succinate [Toprol XL 50mg] 25 mg PO DAILY 03/30/19 [History] Mometasone Furoate [Elocon] 1 dose TOP ASDIRECTED PRN 03/30/19 [History] Pantoprazole Sodium [Protonix] 40 mg PO DAILY 03/30/19 [History] Psyllium Husk [Psyllium Seed] 1 dose PO QID PRN 03/30/19 [History] LORazepam [Ativan] 0.5 mg PO DAILY 04/02/19 [History] Acetaminophen/HYDROcodone [[place] 325-5 MG] 1 - 2 tab PO Q4H PRN #60 tablet 04/05 [Rx] Aspirin 81 mg PO DAILY #30 tab.chew 04/05/19 [Rx] Bisacodyl [Dulcolax] 5 mg PO DAILY PRN tablet 04/05/19 [Rx] Cholecalciferol (Vitamin D3) [Vitamin D3] 5,000 unit PO DAILY tablet 04/05/19 [ Rx] Docusate Sodium [Colace] 100 mg PO BID cap 04/05/19 [Rx] Enoxaparin [Lovenox] 30 mg SUBCUT Q24H #10 syringe 04/05/19 [Rx] Iron Polysaccharides Complex [Ferrex 150] 150 mg PO DAILY cap 04/05/19 [Rx] Sennosides [Senna] 8.6 mg PO BID PRN tablet 04/05/19 [Rx] Sodium Bicarbonate 325 mg PO BID tablet 04/05/19 [Rx] Referrals: Yolanda Winchester MD [Primary Care Provider] - 04/10/19 9:00 am (please attend the scheduled follow up appointment with your primary care provider) Kellie Syed PA-C [Physician [employer] Machine Backtender] - (Please follow up with Kellie Syed on 04/12/19 at 1115, and a second follow up on 04/18/19 at 1345. ) - Discharge Summary/Plan Comment DC Time >30 min.: No - Patient Data Vitals - Most Recent: Last Vital Signs Temp 98.4 F 04/05/19 07:09 Pulse 85 04/05/19 09:54 Resp 16 04/05/19 07:09 BP 136/67 04/05/19 09:54 Pulse Ox 94 L 04/05/19 07:09 Weight - Most Recent: 155 lb 9 oz I&O - Last 24 hours: Intake & Output 04/04/19 04/05/19 04/05/19 22:59 06:59 14:59 Intake Total 920 1000 180 Output Total 400 Balance 520 1000 180 Lab Results - Last 24 hrs: Laboratory Results - last 24 hr 04/05/19 04/05/19 Range/Units 04:40 04:40 WBC 9.36 (3.98-10.04) K/mm3 RBC 3.93 L (3.98-5.22) M/mm3 Hgb 10.9 L (11.2-15.7) gm/L Hct 33.8 L (34.1-44.9) % MCV 86.0 (79.4-94.8) fl MCH 27.7 (25.6-32.2) pg MCHC 32.2 (32.2-35.5) g/dl RDW Std Deviation 44.3 (36.4-46.3) fL Plt Count 212 (182-369) K/mm3 MPV 11.1 (9.4-12.3) fl Neut % (Auto) 69.8 (34.0-71.1) % Lymph % (Auto) 13.6 L (19.3-51.7) % [place] % (Auto) 14.2 H (4.7-12.5) % Eos % (Auto) 2.0 (0.7-5.8) Baso % (Auto) 0.2 (0.1-1.2) % Neut # (Auto) 6.53 H (1.56-6.13) K/mm3 Lymph # (Auto) 1.27 (1.18-3.74) K/mm3 [place] # (Auto) 1.33 H (0.24-0.36) K/mm3 Eos # (Auto) 0.19 (0.04-0.36) K/mm3 Baso # (Auto) 0.02 (0.01-0.08) K/mm3 Sodium 143 (136-145) mEq/L Potassium 3.6 (3.5-5.1) mEq/L Chloride 107 (98-107) mEq/L Carbon Dioxide 21 (21-32) mEq/L Anion Gap 18.6 H (5-15) BUN 31 H (7-18) mg/dL Creatinine 1.8 H (0.55-1.02) mg/dL Est Cr Clr Drug Dosing 20.28 mL/min Estimated GFR (MDRD) 27 (>60) mL/min BUN/Creatinine Ratio 17.2 (14-18) Glucose 93 (83-115) mg/dL Calcium 9.2 (8.5-10.1) mg/dL Magnesium 1.8 (1.8-2.4) mg/dl Total Bilirubin 0.5 (0.2-1.0) mg/dL AST 46 H (15-37) U/L ALT 14 (14-59) U/L Alkaline Phosphatase 70 (46-116) U/L Total Protein 6.6 (6.4-8.2) g/dl Albumin 2.9 L (3.4-5.0) g/dl Globulin 3.7 gm/dL Albumin/Globulin Ratio 0.8 L (1-2) Med Orders - Current: Current Medications Hydrocodone Bitart/Acetaminophen ([place] 325-5 Mg) 1 - 2 tab PO Q4H PRN PRN Reason: Pain Last Admin: 04/05/19 09:52 Dose: 2 tab Aripiprazole (Abilify) 2.5 mg PO DAILY [facility] Last Admin: 04/05/19 09:53 Dose: 2.5 mg Aspirin (Aspirin) 81 mg PO DAILY [facility] Last Admin: 04/05/19 09:54 Dose: 81 mg Bisacodyl (Dulcolax) 5 mg PO DAILY PRN PRN Reason: Constipation Cholecalciferol (Vitamin D3) 5,000 unit PO DAILY [facility] Last Admin: 04/05/19 09:54 Dose: 5,000 unit Docusate Sodium (Colace) 100 mg PO BID [facility] Last Admin: 04/05/19 09:54 Dose: 100 mg Enoxaparin Sodium (Lovenox) 30 mg SUBCUT Q24H [facility] Last Admin: 04/04/19 13:07 Dose: 30 mg Hydromorphone HCl (Dilaudid) 0.2 mg IVPUSH Q2H PRN PRN Reason: Pain (moderate 4-6) Last Admin: 04/03/19 00:24 Dose: 0.2 mg Levothyroxine Sodium (Levothyroxine) 25 mcg PO DAILY [facility] Last Admin: 04/05/19 09:53 Dose: 25 mcg Loperamide HCl (Imodium) 2 mg PO ASDIRECTED PRN PRN Reason: Diarrhea Lorazepam (Ativan) 0.5 mg PO DAILY [facility] Last Admin: 04/05/19 09:54 Dose: 0.5 mg Lorazepam (Ativan) 1 mg PO BEDTIME [facility] Last Admin: 04/04/19 20:40 Dose: 1 mg Metoprolol Succinate (Toprol Xl) 25 mg PO DAILY [facility] Last Admin: 04/05/19 09:54 Dose: 25 mg Naloxone HCl (Narcan) 0.1 mg IVPUSH Q5M PRN PRN Reason: Oversedation Omeprazole (Omeprazole) 20 mg PO DAILY [facility] Last Admin: 04/05/19 09:56 Dose: 20 mg Ondansetron HCl (Zofran) 4 mg IVPUSH Q6H PRN PRN Reason: Nausea/Vomiting Last Admin: 04/03/19 08:12 Dose: 4 mg Polysaccharide Iron Complex (Ferrex 150) 150 mg PO DAILY [facility] Last Admin: 04/05/19 09:53 Dose: 150 mg Psyllium Husk (Metamucil Sugar Free) 1 packet PO DAILY PRN PRN Reason: Constipation Senna (Senna) 8.6 mg PO BID PRN PRN Reason: Constipation Sodium Bicarbonate (Sodium Bicarbonate) 325 mg PO BID [facility] Last Admin: 04/05/19 09:55 Dose: 325 mg Discontinued Medications Aspirin (Halfprin) 81 mg PO BID [facility] Last Admin: 04/03/19 08:01 Dose: 81 mg Bupivacaine HCl (Marcaine 0.25%) Confirm Administered Dose 30 ml .ROUTE .STK- MED ONE Stop: 04/02/19 07:16 Last Admin: 04/02/19 09:56 Dose: 20 ml Cefazolin Sodium (Ancef) Confirm Administered Dose 2 gm .ROUTE .STK-MED ONE Stop: 04/02/19 07:16 Last Admin: 04/02/19 09:51 Dose: 2 gm Cefazolin Sodium (Ancef) Confirm Administered Dose 1 gm .ROUTE .STK-MED ONE Stop: 04/02/19 07:22 Cefazolin Sodium (Ancef) Confirm Administered Dose 1 gm .ROUTE .STK-MED ONE Stop: 04/02/19 07:46 Clindamycin Phosphate (Cleocin) Confirm Administered Dose 900 mg .ROUTE .STK- MED ONE Stop: 04/02/19 07:15 Morphine Sulfate 8 mg/Epinephrine HCl 0.3 mg/Cefuroxime Sodium 750 mg/Sodium Chloride 28.9 ml 0 mg .XX ONETIME ONE Stop: 04/02/19 09:31 Last Admin: 04/02/19 19:46 Dose: Not Given Cyclobenzaprine HCl (Flexeril) 10 mg PO TID PRN PRN Reason: Spasms Diclofenac Sodium (Voltaren 1% Gel) gm TOP QID PRN PRN Reason: Pain Epinephrine HCl (Adrenalin) Confirm Administered Dose 1 mg .ROUTE .STK-MED ONE Stop: 04/02/19 07:42 Epinephrine HCl (Epipen) mg IM ONETIME PRN PRN Reason: anaphylaxis Fentanyl (Sublimaze) Confirm Administered Dose 100 mcg .ROUTE .STK-MED ONE Stop: 04/02/19 07:22 Fentanyl (Sublimaze) Confirm Administered Dose 100 mcg .ROUTE .STK-MED ONE Stop: 04/02/19 08:51 Fentanyl (Sublimaze) Confirm Administered Dose 100 mcg .ROUTE .STK-MED ONE Stop: 04/02/19 10:42 Glycopyrrolate () Confirm Administered Dose 1 mg .ROUTE .STK-MED ONE Stop: 04/02/19 08:55 Hydromorphone HCl (Dilaudid) Confirm Administered Dose 0.5 mg .ROUTE .STK-MED ONE Stop: 04/02/19 09:54 Hydromorphone HCl (Dilaudid) Confirm Administered Dose 0.5 mg .ROUTE .STK-MED ONE Stop: 04/02/19 09:55 Hydromorphone HCl (Dilaudid) Confirm Administered Dose 0.5 mg .ROUTE .STK-MED ONE Stop: 04/02/19 10:41 Hydromorphone HCl (Dilaudid) Confirm Administered Dose 0.5 mg .ROUTE .STK-MED ONE Stop: 04/02/19 10:42 Lactated Ringer's (Ringers, Lactated) 1,000 mls @ 125 mls/hr IV ASDIRECTED [facility] Stop: 04/02/19 23:00 Cefazolin Sodium/Dextrose 2 gm (/ Premix) 50 mls @ 100 mls/hr IV Q8H [facility] Stop: 04/03/19 07:29 Last Admin: 04/03/19 06:05 Dose: 100 mls/hr Sodium Chloride (Normal Saline) 1,000 mls @ 125 mls/hr IV ASDIRECTED [facility] Stop: 04/02/19 23:00 Last Admin: 04/02/19 13:35 Dose: 125 mls/hr Magnesium Sulfate 2 gm/ Premix 50 mls @ 25 mls/hr IV ONETIME ONE Stop: 04/03/19 08:23 Last Admin: 04/03/19 07:50 Dose: 25 mls/hr Iodine (Iodine 2% Mild Tincture) Confirm Administered Dose 30 ml .ROUTE .STK- MED ONE Stop: 04/02/19 07:16 Last Admin: 04/02/19 09:48 Dose: 18 ml Labetalol HCl (Normodyne) Confirm Administered Dose 100 mg .ROUTE .STK-MED ONE Stop: 04/02/19 09:20 Lidocaine/Sodium Bicarbonate (Buffered Lidocaine 1% In Ns 8.4%) 0.25 ml IDERM ONETIME PRN PRN Reason: Prior to IV Start Stop: 04/02/19 18:00 Last Admin: 04/02/19 07:40 Dose: 0.25 ml Lorazepam (Ativan) 0.5 mg PO ONETIME ONE Stop: 04/02/19 14:31 Last Admin: 04/02/19 15:11 Dose: 0.5 mg Meperidine HCl (Meperidine) 25 mg IVPUSH ONETIME PRN PRN Reason: Tremors Stop: 04/02/19 14:00 Last Admin: 04/02/19 11:30 Dose: 25 mg Midazolam HCl (Versed 1 Mg/Ml) Confirm Administered Dose 2 mg .ROUTE .STK-MED ONE Stop: 04/02/19 08:48 Non-Formulary Medication (Mometasone Furoate [Elocon]) 1 dose TOP ASDIRECTED PRN PRN Reason: skin complications Omeprazole (Omeprazole) 20 mg .XX DAILY [facility] Last Admin: 04/04/19 09:10 Dose: 20 mg Omeprazole (Omeprazole) 20 mg PO DAILY [facility] Ondansetron HCl (Zofran) Confirm Administered Dose 4 mg .ROUTE .STK-MED ONE Stop: 04/02/19 09:22 Pantoprazole Sodium (Protonix) 40 mg PO DAILY [facility] Last Admin: 04/03/19 08:01 Dose: 40 mg Phenylephrine HCl (Phenylephrine In Ns 100 Mcg/Ml) Confirm Administered Dose 1 mg .ROUTE .STK-MED ONE Stop: 04/02/19 08:52 Propofol (Diprivan 20 Ml) Confirm Administered Dose 200 mg .ROUTE .STK-MED ONE Stop: 04/02/19 08:41 Rocuronium [place] (Zemuron) Confirm Administered Dose 50 mg .ROUTE .STK-MED ONE Stop: 04/02/19 08:49 Ropivacaine (Naropin 0.5%) Confirm Administered Dose 30 ml .ROUTE .STK-MED ONE Stop: 04/02/19 07:42 Sodium Chloride (Saline Flush) 10 ml FLUSH ASDIRECTED PRN PRN Reason: Keep Vein Open Stop: 04/02/19 18:00 Tranexamic Acid (Cyklokapron) Confirm Administered Dose 1,000 mg .ROUTE .STK- MED ONE Stop: 04/02/19 07:15 Last Admin: 04/02/19 10:04 Dose: 1,000 mg Vancomycin HCl (Vancomycin) Confirm Administered Dose 1 gm .ROUTE .STK-MED ONE Stop: 04/02/19 07:15 Last Admin: 04/02/19 09:59 Dose: 1 gm
== END 2019-04-05 11:13 | disposition home or self-care (01) | DRG 470 ==
LOC: JD.SDS 07:05 → JD.MS 07:06
PROVIDERS: ADMIT Orthopaedic Surgery; ATTEND Orthopaedic Surgery
PROC: 0SRC0J9 Replacement of Right Knee Joint with Synthetic Substitute, Cemented, Open Approach (ICD-10-PCS; principal; 2019-04-02)
DX: M17.11 Unilateral primary osteoarthritis, right knee (principal); N18.4 Chronic kidney disease, stage 4 (severe); K50.90 Crohn's disease, unspecified, without complications; F41.9 Anxiety disorder, unspecified; F32.9 Major depressive disorder, single episode, unspecified; K21.9 Gastro-esophageal reflux disease without esophagitis; I25.10 Atherosclerotic heart disease of native coronary artery without angina pectoris; D50.9 Iron deficiency anemia, unspecified; H54.7 Unspecified visual loss; H91.90 Unspecified hearing loss, unspecified ear; E78.5 Hyperlipidemia, unspecified; E03.9 Hypothyroidism, unspecified; I12.9 Hypertensive chronic kidney disease with stage 1 through stage 4 chronic kidney disease, or unspecified chronic kidney disease; G43.909 Migraine, unspecified, not intractable, without status migrainosus; M81.0 Age-related osteoporosis without current pathological fracture; Z90.49 Acquired absence of other specified parts of digestive tract; Z90.89 Acquired absence of other organs; Z87.891 Personal history of nicotine dependence; Z88.8 Allergy status to other drugs, medicaments and biological substances; Z79.899 Other long term (current) drug therapy; Z96.652 Presence of left artificial knee joint; Z91.040 Latex allergy status; Z98.49 Cataract extraction status, unspecified eye; Z88.0 Allergy status to penicillin; Z91.013 Allergy to seafood; Z88.2 Allergy status to sulfonamides; Z88.5 Allergy status to narcotic agent
CPT/HCPCS: 01402; 36415; 64450; 73560-26-RT; 73560-RT; 80048; 80053; 83735; 85025; 85610; 87641; 97110-GP; 97116-GP; 97162-GP; 97165-GO; 97530-GP; 97535-GO; A9270-GY; C1713; C1776; J0171; J0690; J0697; J1170; J1650; J2175; J2250; J2270; J2370; J2405; J2704; J2795; J3010; J3370; J3475; J3490; J7040

== ENCOUNTER 2019-07-04 15:03 | Emergency (ER) | payer MEDICARE, MEDICAID ==
[2019-07-04 15:19] VITALS: BP 176/96; PULSE 81
[2019-07-04] MEDS ORDERED: Sodium Chloride 0.9% 10 ML Syringe FLUSH PRN (15:40)
--- NOTE | 2019-07-04 15:51 | EDM.PDOC ---
ED HPI GENERAL MEDICAL PROBLEM - General Source of Information: Reports: Patient, Family History Limitations: Reports: Altered Mental Status - History of Present Illness Onset: Gradual Duration: Day(s): <Robert Fleming - Last Filed: 07/04/19 15:44> <Gabriel Saab - Last Filed: 07/04/19 18:35> - General Chief Complaint: Behavioral/Psych Stated Complaint: MANIC Time Seen by Provider: 07/04/19 15:14 - History of Present Illness INITIAL COMMENTS - FREE TEXT/NARRATIVE: Pt presents to ED today with complaint of altered mental status. Pt was brought to ED by [facility] after being found in the passenger seat of the facility van alone. Pt is unable to provide a consistent or reliable history. Pt is rambling and rapidly changing subjects and does not answer questions appropriately. Pt does report she has not been sleeping well since her knee replacement in February. Pt also reports hallucinations at night. When asked about any urinary symptoms, patient describes what sounds like an incontinent episode last night. Pt also saw the chiropractor today for a neck adjustment. Pt states that recently she has been alternating episodes of chills and diaphoresis. ( Robert Fleming) - Related Data Allergies Allergy/AdvReac Type Severity Reaction Status Date / Time fish derived Allergy Cannot Verified 03/30/19 13:40 Remember hydrochlorothiazide Allergy Cannot Verified 03/30/19 13:40 Remember levofloxacin Allergy Cannot Verified 03/30/19 13:40 Remember Penicillins Allergy Hives Verified 03/30/19 13:40 Sulfa (Sulfonamide Allergy Hives Verified 03/30/19 13:40 Antibiotics) propoxyphene HCl AdvReac Vomiting Verified 03/30/19 13:40 [From Darvon] HCTZ Allergy Cannot Uncoded 03/30/19 13:40 Remember insect bites Allergy Swelling Uncoded 03/30/19 13:40 tilapia Allergy Cannot Uncoded 03/30/19 13:40 Remember Home Meds: Home Meds ARIPiprazole [Aripiprazole] 2.5 mg PO DAILY 03/30/19 [History] Acetaminophen [Tylenol] 650 mg PO Q4HR PRN 03/30/19 [History] Diclofenac Sodium [Voltaren 1% Gel] 1 dose TOP QID PRN 03/30/19 [History] EPINEPHrine [Epipen] 1 dose IM ONETIME PRN 03/30/19 [History] LORazepam 1 mg PO BEDTIME 03/30/19 [History] Levothyroxine 25 mcg PO DAILY 03/30/19 [History] Loperamide [Imodium AD] 2 mg PO ASDIRECTED PRN 03/30/19 [History] Metoprolol Succinate [Toprol XL 50mg] 25 mg PO DAILY 03/30/19 [History] Mometasone Furoate [Elocon] 1 dose TOP ASDIRECTED PRN 03/30/19 [History] Pantoprazole Sodium [Protonix] 40 mg PO DAILY 03/30/19 [History] Psyllium Husk [Psyllium Seed] 1 dose PO QID PRN 03/30/19 [History] LORazepam [Ativan] 0.5 mg PO DAILY 04/02/19 [History] Acetaminophen/HYDROcodone [Amoret 325-5 MG] 1 - 2 tab PO Q4H PRN #60 tablet 04/05 [Rx] Aspirin 81 mg PO DAILY #30 tab.chew 04/05/19 [Rx] Bisacodyl [Dulcolax] 5 mg PO DAILY PRN tablet 04/05/19 [Rx] Cholecalciferol (Vitamin D3) [Vitamin D3] 5,000 unit PO DAILY tablet 04/05/19 [ Rx] Docusate Sodium [Colace] 100 mg PO BID cap 04/05/19 [Rx] Enoxaparin [Lovenox] 30 mg SUBCUT Q24H #10 syringe 04/05/19 [Rx] Iron Polysaccharides Complex [Ferrex 150] 150 mg PO DAILY cap 04/05/19 [Rx] Sennosides [Senna] 8.6 mg PO BID PRN tablet 04/05/19 [Rx] Sodium Bicarbonate 325 mg PO BID tablet 04/05/19 [Rx] Past Medical History HEENT History: Reports: Cataract, Hard of Hearing, Impaired Vision Cardiovascular History: Reports: CAD, High Cholesterol, Hypertension, Other ( See Below) Other Cardiovascular History: varicose veins Respiratory History: Reports: Other (See Below) Other Respiratory History: fiberoptic assisted intubation Gastrointestinal History: Reports: Chronic Diarrhea, GERD, Irritable Bowel Syndrome, Other (See Below) Other Gastrointestinal History: Crohns Disease Genitourinary History: Reports: Other (See Below) Other Genitourinary History: CKD IV, lithium neprhpathy, kidney stone, UTIs, colporrhaphy, cyst removed from abdomen [employer] History: Reports: Musculoskeletal History: Reports: Arthritis, Osteoarthritis, Osteoporosis, Other (See Below) Other Musculoskeletal History: plantar fascitis Neurological History: Reports: Headaches, Chronic, Migraines, Other (See Below) 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", degenerative disc disease Psychiatric History: Reports: Anxiety, Bipolar, Depression, Other (See Below) Other Psychiatric History: manic depressive illness Endocrine/Metabolic History: Reports: Hypothyroidism, Osteopenia Hematologic History: Reports: Anemia, Iron Deficiency Immunologic History: Reports: None Oncologic (Cancer) History: Reports: None Dermatologic History: Reports: None - Infectious Disease History Infectious Disease History: Reports: Chicken Pox, Measles, Mumps - Past Surgical History Head Surgeries/Procedures: Reports: None HEENT Surgical History: Reports: Adenoidectomy, Cataract Surgery, Tonsillectomy Cardiovascular Surgical History: Reports: None Respiratory Surgical History: Reports: None GI Surgical History: Reports: Appendectomy, Cholecystectomy, EGD Female Surgical History: Reports: Hysterectomy, Oophorectomy Endocrine Surgical History: Reports: Parathyroidectomy Musculoskeletal Surgical History: Reports: Knee Replacement Oncologic Surgical History: Reports: None Dermatological Surgical History: Reports: None <Robert Fleming - Last Filed: 07/04/19 15:44> Social & Family History - Family History Family Medical History: Noncontributory - Tobacco Use Smoking Status *Q: Never Smoker - Caffeine Use Caffeine Use: Reports: None - Recreational Drug Use Recreational Drug Use: No <Robert Fleming - Last Filed: 07/04/19 15:44> ED ROS GENERAL - Review of Systems Review Of Systems: Unable To Obtain (Altered mental status) <Robert Fleming - Last Filed: 07/04/19 15:44> - Physical Exam Exam: See Below Exam Limited By: Altered Mental Status General Appearance: Alert, No Apparent Distress Eye Exam: Bilateral Eye: Normal Inspection Ears: Normal External Exam Nose: Normal Inspection Throat/Mouth: Normal Inspection Head Exam: Atraumatic, Normocephalic Neck: Normal Inspection, Supple, Non-Tender, Full Range of Motion Respiratory/Chest: No Respiratory Distress, Lungs Clear, Normal Breath Sounds, No Accessory Muscle Use Cardiovascular: Normal Peripheral Pulses, Regular Rate, Rhythm, No Edema, No JVD GI/Abdominal: Normal Bowel Sounds, Soft, Non-Tender, No Organomegaly Neuro Exam (Abbreviated): Alert, CN II-XII Intact, Confused Back Exam: Normal Inspection Extremities: Normal Inspection, Non-Tender, No Pedal Edema Psychiatric: Other (Manic) Skin Exam: Warm, Dry, Intact, Normal Color, No Rash <Robert Fleming - Last Filed: 07/04/19 15:44> EKG INTERPRETATION EKG Date: 07/04/19 Time: 16:39 Rhythm: NSR Rate (Beats/Min): 66 [place]: LAD-Left [place] Deviation P-Wave: Present QRS: RBBB ST-T: Normal QT: Normal NC/PQ Interval: 1st degree HB <Gabriel Saab - Last Filed: 07/04/19 18:35> Course <Robert Fleming - Last Filed: 07/04/19 15:44> <Gabriel Saab - Last Filed: 07/04/19 18:35> - Vital Signs Last Recorded V/S: Last Vital Signs Temp 98.3 F 07/04/19 15:12 Pulse 81 07/04/19 15:12 Resp 16 07/04/19 15:12 BP 176/96 H 07/04/19 15:12 Pulse Ox 99 07/04/19 15:12 - Orders/Labs/Meds Orders: Active Orders 24 hr Category Date Time Status Cardiac Monitoring [RC] . DIRECTED Care 07/04/19 15:40 Active EKG Documentation Completion [RC] STAT Care 07/04/19 15:43 Active Peripheral IV Care [RC] . DIRECTED Care 07/04/19 15:42 Active Head wo Cont [CT] Stat Exams 07/04/19 15:44 Taken Sodium Chloride 0.9% [Saline Flush] Med 07/04/19 15:40 Active 10 ml FLUSH ASDIRECTED PRN Peripheral IV Insertion Adult [OM.PC] Stat Oth 07/04/19 15:40 Ordered Medication Orders Sodium Chloride (Saline Flush) 10 ml FLUSH ASDIRECTED PRN PRN Reason: Keep Vein Open Last Admin: 07/04/19 16:10 Dose: 10 ml Labs: Laboratory Tests 07/04/19 07/04/19 07/04/19 Range/Units 15:50 15:50 15:50 WBC 6.74 (3.98-10.04) K/mm3 RBC 3.61 L (3.98-5.22) M/mm3 Hgb 10.2 L (11.2-15.7) gm/L Hct 31.6 L (34.1-44.9) % MCV 87.5 (79.4-94.8) fl MCH 28.3 (25.6-32.2) pg MCHC 32.3 (32.2-35.5) g/dl RDW Std Deviation 44.0 (36.4-46.3) fL Plt Count 238 (182-369) K/mm3 MPV 10.7 (9.4-12.3) fl Neut % (Auto) 67.7 (34.0-71.1) % Lymph % (Auto) 18.7 L (19.3-51.7) % [place] % (Auto) 10.2 (4.7-12.5) % Eos % (Auto) 3.0 (0.7-5.8) Baso % (Auto) 0.3 (0.1-1.2) % Neut # (Auto) 4.56 (1.56-6.13) K/mm3 Lymph # (Auto) 1.26 (1.18-3.74) K/mm3 [place] # (Auto) 0.69 H (0.24-0.36) K/mm3 Eos # (Auto) 0.20 (0.04-0.36) K/mm3 Baso # (Auto) 0.02 (0.01-0.08) K/mm3 Sodium 142 (136-145) mEq/L Potassium 4.0 (3.5-5.1) mEq/L Chloride 108 H (98-107) mEq/L Carbon Dioxide 25 (21-32) mEq/L Anion Gap 13.0 (5-15) BUN 29 H (7-18) mg/dL Creatinine 2.0 H (0.55-1.02) mg/dL Est Cr Clr Drug Dosing 17.45 mL/min Estimated GFR (MDRD) 24 (>60) mL/min BUN/Creatinine Ratio 14.5 (14-18) Glucose 88 (83-115) mg/dL Calcium 9.1 (8.5-10.1) mg/dL Magnesium 1.8 (1.8-2.4) mg/dl Total Bilirubin 0.3 (0.2-1.0) mg/dL AST 20 (15-37) U/L ALT 19 (14-59) U/L Alkaline Phosphatase 83 (46-116) U/L Troponin I < 0.017 (0.00-0.056) ng/mL Total Protein 6.8 (6.4-8.2) g/dl Albumin 3.7 (3.4-5.0) g/dl Globulin 3.1 gm/dL Albumin/Globulin Ratio 1.2 (1-2) TSH 3rd Generation 3.755 H (0.358-3.74) uIU/mL Urine Color (Yellow) Urine Appearance (Clear) Urine pH (5.0-8.0) Ur Specific [place] (1.005-1.030) Urine Protein (Negative) Urine Glucose (UA) (Negative) Urine Ketones (Negative) Urine Occult Blood (Negative) Urine Nitrite (Negative) Urine Bilirubin (Negative) Urine Urobilinogen (0.2-1.0) Ur Leukocyte Esterase (Negative) Urine RBC (0-5) /hpf Urine WBC (0-5) /hpf Ur Squamous Epith Cells (0-5) /hpf Urine Bacteria (FEW) /hpf Urine Mucus (FEW) /hpf Salicylates 0.7 L (2.8-20) mg/dL Acetaminophen 0 L (10-30) ug/mL 07/04/19 Range/Units 17:45 WBC (3.98-10.04) K/mm3 RBC (3.98-5.22) M/mm3 Hgb (11.2-15.7) gm/L Hct (34.1-44.9) % MCV (79.4-94.8) fl MCH (25.6-32.2) pg MCHC (32.2-35.5) g/dl RDW Std Deviation (36.4-46.3) fL Plt Count (182-369) K/mm3 MPV (9.4-12.3) fl Neut % (Auto) (34.0-71.1) % Lymph % (Auto) (19.3-51.7) % [place] % (Auto) (4.7-12.5) % Eos % (Auto) (0.7-5.8) Baso % (Auto) (0.1-1.2) % Neut # (Auto) (1.56-6.13) K/mm3 Lymph # (Auto) (1.18-3.74) K/mm3 [place] # (Auto) (0.24-0.36) K/mm3 Eos # (Auto) (0.04-0.36) K/mm3 Baso # (Auto) (0.01-0.08) K/mm3 Sodium (136-145) mEq/L Potassium (3.5-5.1) mEq/L Chloride (98-107) mEq/L Carbon Dioxide (21-32) mEq/L Anion Gap (5-15) BUN (7-18) mg/dL Creatinine (0.55-1.02) mg/dL Est Cr Clr Drug Dosing mL/min Estimated GFR (MDRD) (>60) mL/min BUN/Creatinine Ratio (14-18) Glucose (83-115) mg/dL Calcium (8.5-10.1) mg/dL Magnesium (1.8-2.4) mg/dl Total Bilirubin (0.2-1.0) mg/dL AST (15-37) U/L ALT (14-59) U/L Alkaline Phosphatase (46-116) U/L Troponin I (0.00-0.056) ng/mL Total Protein (6.4-8.2) g/dl Albumin (3.4-5.0) g/dl Globulin gm/dL Albumin/Globulin Ratio (1-2) TSH 3rd Generation (0.358-3.74) uIU/mL Urine Color Light yellow (Yellow) Urine Appearance Clear (Clear) Urine pH 7.0 (5.0-8.0) Ur Specific [place] 1.015 (1.005-1.030) Urine Protein 1+ H (Negative) Urine Glucose (UA) Negative (Negative) Urine Ketones Negative (Negative) Urine Occult Blood Negative (Negative) Urine Nitrite Negative (Negative) Urine Bilirubin Negative (Negative) Urine Urobilinogen 0.2 (0.2-1.0) Ur Leukocyte Esterase Negative (Negative) Urine RBC 0-5 (0-5) /hpf Urine WBC Not seen (0-5) /hpf Ur Squamous Epith Cells 0-5 (0-5) /hpf Urine Bacteria Not seen (FEW) /hpf Urine Mucus Not seen (FEW) /hpf Salicylates (2.8-20) mg/dL Acetaminophen (10-30) ug/mL Meds: Medications Generic Name Dose Route Start Last Admin Trade Name Tj PRN Reason Stop Dose Admin Sodium Chloride 10 ml 07/04/19 15:40 07/04/19 16:10 Saline Flush FLUSH 10 ml ASDIRECTED PRN Administration Keep Vein Open - Re-Assessments/Exams Free Text/Narrative Re-Assessment/Exam: 07/04/19 18:29 I ordered an EKG, labs and a CT of her head. Her EKG shows a NSR and RBBB and 1st degree HB. Her head CT shows no acute findings. Her Hgb was low at 10.2. Her creatinine was 2 but that is at her baseling. Her GFR was low at 24. Her troponin was negative. Her TSH was slightly elevated at 3.755. Her UA is negative. She is bipolor and I feel a little psychotic. I feel she is not safe. I called [facility] and talked with Dr Feng and he accepted the patient. They requested she go by Ambulance. (Gabriel Saab) Departure <Robert Fleming - Last Filed: 07/04/19 15:44> - Departure Time of Disposition: 18:35 Condition: Fair <Gabriel Saab - Last Filed: 07/04/19 18:35> - Departure Disposition: DC/Tfer to Psych Hosp/Unit [facility] Clinical Impression: Bipolar disorder with psychotic features - Discharge Information Referrals: Yolanda Winchester MD [Primary Care Provider] - Forms: ED Department Discharge - My Orders Last 24 Hours: My Active Orders 07/04/19 15:40 Cardiac Monitoring [RC] . DIRECTED Sodium Chloride 0.9% [Saline Flush] 10 ml FLUSH ASDIRECTED PRN Peripheral IV Insertion Adult [OM.PC] Stat 07/04/19 15:42 Peripheral IV Care [RC] . DIRECTED 07/04/19 15:43 EKG Documentation Completion [RC] STAT 07/04/19 15:44 Head wo Cont [CT] Stat - Assessment/Plan Last 24 Hours: My Active Orders 07/04/19 15:40 Cardiac Monitoring [RC] . DIRECTED Sodium Chloride 0.9% [Saline Flush] 10 ml FLUSH ASDIRECTED PRN Peripheral IV Insertion Adult [OM.PC] Stat 07/04/19 15:42 Peripheral IV Care [RC] . DIRECTED 07/04/19 15:43 EKG Documentation Completion [RC] STAT 07/04/19 15:44 Head wo Cont [CT] Stat
[2019-07-04 16:34] LABS: ACETAMINOPHEN 0 ug/mL (10-30)
--- NOTE | 2019-07-09 06:39 | CT ---
Head CT Technique: Multiple axial sections through the brain were obtained. Intravenous contrast was not utilized. Comparison: No prior head CT exam, previous MRI brain of 05/04/12. Findings: Ventricles along with basal cisterns and sulci over the convexities appear within normal limits for the patient's age. Small hyperdense finding located within the foramen of [place] is seen compatible with colloid cyst. This is believed to be present on previous MRI best seen on the sagittal images which was not mentioned on previous report. This finding measures approximately 8 mm. No ventricular dilatation is seen. Mild basal ganglia calcification is seen. No abnormal parenchymal densities are seen. No midline shift or mass effect is seen. Bone window settings were reviewed which show atherosclerotic calcification within the carotid siphon. Mild mucosal thickening noted within the right side of the sphenoid sinus. Mastoid sinuses that are seen appear clear. No acute calvarial abnormality is seen. Impression: 1. 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 2. Minimal senescent change as noted above. 3. No acute intracranial abnormality is appreciated. Diagnostic code #2 I agree with preliminary report from [facility], finalized on 07/04/19, 5:36 PM Central Time
== END 2019-07-04 19:35 ==
LOC: JD.ED 15:03
DX: F31.9 Bipolar disorder, unspecified (principal); I10 Essential (primary) hypertension; I25.10 Atherosclerotic heart disease of native coronary artery without angina pectoris; K21.9 Gastro-esophageal reflux disease without esophagitis; M19.90 Unspecified osteoarthritis, unspecified site; F41.9 Anxiety disorder, unspecified; E03.9 Hypothyroidism, unspecified; D64.9 Anemia, unspecified; Z88.0 Allergy status to penicillin; Z88.2 Allergy status to sulfonamides; Z88.8 Allergy status to other drugs, medicaments and biological substances; Z91.038 Other insect allergy status; Z91.013 Allergy to seafood; Z79.82 Long term (current) use of aspirin; Z79.899 Other long term (current) drug therapy
CPT/HCPCS: 36415; 70450; 80053; 81001; 83735; 84443; 84484; 85025; 93005; 99285; G0480; 93010; 99283

== ENCOUNTER 2021-06-13 12:11 | Emergency (ER) | payer MEDICARE, MEDICAID ==
--- NOTE | 2021-06-13 12:44 | EDM.PDOC ---
ED HPI GENERAL MEDICAL PROBLEM - General Chief Complaint: Upper Extremity Injury/Pain Stated Complaint: [facility] Time Seen by Provider: 06/13/21 12:43 - History of Present Illness INITIAL COMMENTS - FREE TEXT/NARRATIVE: 85-year-old female presents the emergency room brought in by EMS after a fall. Shortly before arrival patient was walking with the aid of her walker and got her feet tangled up in the wheel and fell. She was not able to get up on her own and EMS had to help her into the gurney. Patient has significant left hip and shoulder pain. Patient denies any other injury associated with this most unfortunate mishap. She is not having any breathing difficulty shortness of breath no nausea vomiting or abdominal pain. She denies any recent fevers or chills or sensation where she felt ill. Left Shoulder Pain Score (Numeric/FACES): 10 Right Hip Pain Score (Numeric/FACES): 8 - Related Data Allergies Allergy/AdvReac Type Severity Reaction Status Date / Time adhesive Allergy Cannot Verified 06/13/21 12:40 Remember fish derived Allergy Cannot Verified 06/13/21 12:40 Remember hydrochlorothiazide Allergy Cannot Verified 06/13/21 12:40 Remember levofloxacin Allergy Cannot Verified 06/13/21 12:40 Remember Penicillins Allergy Hives Verified 06/13/21 12:40 rosuvastatin Allergy Muscle Verified 06/13/21 12:40 Aches Sulfa (Sulfonamide Allergy Hives Verified 06/13/21 12:40 Antibiotics) propoxyphene HCl AdvReac Vomiting Verified 06/13/21 12:40 [From Darvon] HCTZ Allergy Cannot Uncoded 06/13/21 12:40 Remember insect bites Allergy Swelling Uncoded 06/13/21 12:40 pentapiperium methylsulfate Allergy Hives Uncoded 06/13/21 12:40 tilapia Allergy Cannot Uncoded 06/13/21 12:40 Remember Home Meds: Home Meds Aspirin 81 mg PO DAILY #30 tab.chew 04/05/19 [Rx] Calcium Carb/Vitamin D3/Vit K1 [Calcium + D Soft Chewable Tab] 1 tab PO BID 07/04/19 [History] EPINEPHrine [Epinephrine] 1 injection IM DAILY PRN 07/04/19 [History] Esomeprazole Magnesium 20 mg PO DAILY 07/04/19 [History] Ferrous Sulfate 325 mg PO DAILY 07/04/19 [History] Metoprolol Succinate 25 mg PO DAILY 07/04/19 [History] Mometasone Furoate [Elocon] 1 gm TOP DAILY 07/04/19 [History] Sennosides/Docusate Sodium [Senna Plus Tablet] 1 tab PO BID 07/04/19 [History] Sodium Bicarbonate 650 mg PO BID 07/04/19 [History] clindamycin HCL [Cleocin] 1 tab PO ASDIRECTED PRN 07/04/19 [History] traZODone HCl [Trazodone HCl] 25 mg PO BEDTIME 07/04/19 [History] Cholestyramine/Sucrose [Cholestyramine] 4 gm PO DAILY 01/09/20 [History] OLANZapine [Zyprexa] 1 tab PO BEDTIME 01/09/20 [History] Temazepam [Restoril] 15 mg PO BEDTIME 01/09/20 [History] Acetaminophen [Non-Aspirin Extra Strength] 500 mg PO TID 06/13/21 [History] Diclofenac Sodium [Voltaren Arthritis Pain] 1 applic TOP QID PRN 06/13/21 [History] Fluticasone Propionate [24 Hour Allergy] 2 spray ANUSHA DAILY 06/13/21 [History] Levothyroxine Sodium [Synthroid] 25 mcg PO DAILY 06/13/21 [History] Mirtazapine [Remeron] 15 mg PO BEDTIME PRN 06/13/21 [History] OLANZapine [Zyprexa] 5 mg PO DAILY 06/13/21 [History] diphenhydrAMINE HCL [Benadryl] 25 mg PO BEDTIME 06/13/21 [History] Past Medical History HEENT History: Reports: Cataract, Hard of Hearing, Impaired Vision Cardiovascular History: Reports: CAD, High Cholesterol, Hypertension, Other (See Below) Other Cardiovascular History: varicose veins Respiratory History: Reports: Other (See Below) Other Respiratory History: fiberoptic assisted intubation Gastrointestinal History: Reports: Chronic Diarrhea, GERD, Irritable Bowel Syndrome, Other (See Below) Other Gastrointestinal History: Crohns Disease Genitourinary History: Reports: Other (See Below) Other Genitourinary History: CKD IV, lithium neprhpathy, kidney stone, UTIs, colporrhaphy, cyst removed from abdomen VERIFIER History: Reports: Musculoskeletal History: Reports: Arthritis, Osteoarthritis, Osteoporosis, Other (See Below) Other Musculoskeletal History: plantar fascitis Neurological History: Reports: Headaches, Chronic, Migraines, Other (See Below) 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", degenerative disc disease Psychiatric History: Reports: Anxiety, Bipolar, Depression, Other (See Below) Other Psychiatric History: manic depressive illness Endocrine/Metabolic History: Reports: Hypothyroidism, Osteopenia Hematologic History: Reports: Anemia, Iron Deficiency Immunologic History: Reports: None Oncologic (Cancer) History: Reports: None Dermatologic History: Reports: None - Infectious Disease History Infectious Disease History: Reports: Chicken Pox, Measles, Mumps - Past Surgical History Head Surgeries/Procedures: Reports: None HEENT Surgical History: Reports: Adenoidectomy, Cataract Surgery, Tonsillectomy Cardiovascular Surgical History: Reports: None Respiratory Surgical History: Reports: None GI Surgical History: Reports: Appendectomy, Cholecystectomy, EGD Female Surgical History: Reports: Hysterectomy, Oophorectomy Endocrine Surgical History: Reports: Parathyroidectomy Musculoskeletal Surgical History: Reports: Knee Replacement Oncologic Surgical History: Reports: None Dermatological Surgical History: Reports: None Social & Family History - Family History Family Medical History: No Pertinent Family History - Caffeine Use Caffeine Use: Reports: None Review of Systems - Review of Systems Review Of Systems: See Below Constitutional: Reports: No Symptoms Eyes: Reports: No Symptoms Ears: Reports: No Symptoms Nose: Reports: No Symptoms Mouth/Throat: Reports: No Symptoms Respiratory: Reports: No Symptoms Cardiovascular: Reports: No Symptoms GI/Abdominal: Reports: No Symptoms Genitourinary: Reports: No Symptoms Musculoskeletal: Reports: Shoulder Pain, Other (Left hip pain) Skin: Reports: No Symptoms Neurological: Reports: No Symptoms ED EXAM, GENERAL - Physical Exam Exam: See Below Exam Limited By: No Limitations General Appearance: Alert, No Apparent Distress Head: Atraumatic, Normocephalic Neck: Normal Inspection, Supple, Non-Tender, Full Range of Motion. No: Lymphadenopathy (L), Lymphadenopathy (R), Tender Midline Respiratory/Chest: No Respiratory Distress, Lungs Clear, Normal Breath Sounds Cardiovascular: Regular Rate, Rhythm, No Edema, No Murmur GI/Abdominal: Normal Bowel Sounds, Soft, Non-Tender Extremities: Other (Left hip is tender with any sort of motion left shoulder looks like it has a deformity to it neurovascular status of the left hand is normal) Course - Vital Signs Last Recorded V/S: Last Vital Signs Temp 36.4 C 06/13/21 12:31 Pulse 66 06/13/21 12:31 Resp 18 06/13/21 12:31 BP 175/59 H 06/13/21 12:31 Pulse Ox 97 06/13/21 12:31 - Orders/Labs/Meds Orders: Active Orders 24 hr Category Date Time Status Hip Min 2V or 3V w Pelvis Lt [CR] Stat Exams 06/13/21 12:49 Taken Humerus Lt [CR] Stat Exams 06/13/21 12:49 Taken CORONAVIRUS COVID-19 KEENAN [MOLEC] Stat Lab 06/13/21 14:36 Received CULTURE URINE [MREF] Stat Lab 06/13/21 14:40 Received cefTRIAXone [Rocephin] 1 gm Med 06/13/21 15:30 Ordered Sodium Chloride 0.9% [Normal Saline] 100 ml IV Q24H Durable Medical Equipment for Discharge [DME for Oth 06/13/21 14:28 Ordered Discharge] [COMM] Stat Medication Orders Ceftriaxone Sodium 1 gm/ (Sodium Chloride) 100 mls @ 200 mls/hr IV Q24H [facility] Labs: Laboratory Tests 06/13/21 06/13/21 06/13/21 Range/Units 12:45 12:45 14:40 WBC 9.17 (3.98-10.04) K/mm3 RBC 3.39 L (3.98-5.22) M/mm3 Hgb 10.0 L (11.2-15.7) gm/dl Hct 31.9 L (34.1-44.9) % MCV 94.1 D (79.4-94.8) fl MCH 29.5 (25.6-32.2) pg MCHC 31.3 L (32.2-35.5) g/dl RDW Std Deviation 46.5 H (36.4-46.3) fL Plt Count 177 L (182-369) K/mm3 MPV 10.7 (9.4-12.3) fl Neut % (Auto) 71.2 H (34.0-71.1) % Lymph % (Auto) 8.6 L (19.3-51.7) % [place] % (Auto) 19.5 H (4.7-12.5) % Eos % (Auto) 0.5 L (0.7-5.8) Baso % (Auto) 0.1 (0.1-1.2) % Neut # (Auto) 6.52 H (1.56-6.13) K/mm3 Lymph # (Auto) 0.79 L (1.18-3.74) K/mm3 [place] # (Auto) 1.79 H (0.24-0.36) K/mm3 Eos # (Auto) 0.05 (0.04-0.36) K/mm3 Baso # (Auto) 0.01 (0.01-0.08) K/mm3 Manual Slide Review Abnormal smear Sodium 142 (136-145) mEq/L Potassium 4.3 (3.5-5.1) mEq/L Chloride 106 (98-107) mEq/L Carbon Dioxide 28 (21-32) mEq/L Anion Gap 12.3 (5-15) BUN 28 H (7-18) mg/dL Creatinine 1.9 H (0.55-1.02) mg/dL Est Cr Clr Drug Dosing 17.99 mL/min Estimated GFR (MDRD) 25 (>60) mL/min BUN/Creatinine Ratio 14.7 (14-18) Glucose 118 H (70-99) mg/dL Calcium 8.0 L (8.5-10.1) mg/dL Total Bilirubin 0.2 (0.2-1.0) mg/dL AST 24 (15-37) U/L ALT 25 (14-59) U/L Alkaline Phosphatase 55 (46-116) U/L Total Protein 6.5 (6.4-8.2) g/dl Albumin 3.3 L (3.4-5.0) g/dl Globulin 3.2 gm/dL Albumin/Globulin Ratio 1.0 (1-2) Urine Color Light yellow (Yellow) Urine Appearance Clear (Clear) Urine pH 7.0 (5.0-8.0) Ur Specific [place] 1.015 (1.005-1.030) Urine Protein Trace H (Negative) Urine Glucose (UA) Negative (Negative) Urine Ketones Negative (Negative) Urine Occult Blood Negative (Negative) Urine Nitrite Negative (Negative) Urine Bilirubin Negative (Negative) Urine Urobilinogen 0.2 (0.2-1.0) Ur Leukocyte Esterase 1+ H (Negative) Urine RBC Not seen (0-5) /hpf Urine WBC 5-10 H (0-5) /hpf Ur Epithelial Cells Not seen (0-5) /hpf Urine Bacteria Many H (FEW) /hpf Urine Mucus Rare (FEW) /hpf Meds: Medications Generic Name Dose Route Start Last Admin Trade Name Freq PRN Reason Stop Dose Admin Ceftriaxone Sodium 1 gm/ 100 mls @ 200 mls/hr 06/13/21 15:30 Sodium Chloride IV Q24H JAY Discontinued Medications Generic Name Dose Route Start Last Admin Trade Name Freq PRN Reason Stop Dose Admin Hydromorphone HCl 0.25 mg 06/13/21 15:20 Hydromorphone 0.5 Mg/0.5 Ml Syringe IVPUSH 06/13/21 15:21 ONETIME ONE - Re-Assessments/Exams Free Text/Narrative Re-Assessment/Exam: 06/13/21 14:20 X-rays unfortunately show a fracture of the proximal humerus just below the humeral head this appears to be anteriorly displaced this is on the left side. The left hip shows a femoral neck fracture. Case was discussed with Dr. Recio orthopedic surgeon on-call at [facility] in [place] who accepts the patient in transfer. 06/13/21 14:28 Patient will be placed in a sling to minimize further injury and help with comfort. 06/13/21 15:22 Patient appears to have a urinary tract infection we will give her a gram of Rocephin before she leaves. Departure - Departure Time of Disposition: 14:29 Disposition: DC/Tfer to [facility] 02 Clinical Impression: Left displaced femoral neck fracture, Closed fracture of left proximal humerus - Discharge Information Referrals: Yolanda Winchester MD [Primary Care Provider] - Forms: ED Department Discharge Sepsis Event Note (ED) - Evaluation Sepsis Screening Result: No Definite Risk - Focused Exam Vital Signs: Vital Signs Temp Pulse Resp BP Pulse Ox 06/13/21 12:31 36.4 C 66 18 175/59 H 97 - My Orders Last 24 Hours: My Active Orders 06/13/21 12:49 Hip Min 2V or 3V w Pelvis Lt [CR] Stat Humerus Lt [CR] Stat 06/13/21 14:28 Durable Medical Equipment for Discharge [DME for Discharge] [COMM] Stat 06/13/21 14:36 CORONAVIRUS COVID-19 KEENAN [MOLEC] Stat 06/13/21 14:40 CULTURE URINE [MREF] Stat 06/13/21 15:30 cefTRIAXone [Rocephin] 1 gm Sodium Chloride 0.9% [Normal Saline] 100 ml IV Q24H - Assessment/Plan Last 24 Hours: My Active Orders 06/13/21 12:49 Hip Min 2V or 3V w Pelvis Lt [CR] Stat Humerus Lt [CR] Stat 06/13/21 14:28 Durable Medical Equipment for Discharge [DME for Discharge] [COMM] Stat 06/13/21 14:36 CORONAVIRUS COVID-19 KEENAN [MOLEC] Stat 06/13/21 14:40 CULTURE URINE [MREF] Stat 06/13/21 15:30 cefTRIAXone [Rocephin] 1 gm Sodium Chloride 0.9% [Normal Saline] 100 ml IV Q24H
[2021-06-13] MEDS ORDERED: HYDROmorphone 0.5 MG/0.5 ML Syringe IVPUSH ONE (15:20)
[2021-06-13] MEDS ORDERED: cefTRIAXone 1 GM AdvVial IV ONE (15:23)
[2021-06-13] MEDS ORDERED: cefTRIAXone 1 GM in Sodium Chloride 0.9% 100 ML IV SCH (15:30)
--- NOTE | 2021-06-13 16:00 | CR ---
Pelvis and left hip: AP view of the pelvis was obtained as well as AP and crosstable lateral views of the left hip. Comparison: No prior pelvis or hip study is available. Subcapital fracture is seen within the left hip with displacement. Joint space narrowing is noted within the left hip as well as joint space narrowing within the right hip. Bony structures are osteoporotic. No additional bony abnormality is appreciated. Impression: 1. Displaced subcapital fracture within the left hip. 2. Osteoporosis. Degenerative change is seen within both hips. Diagnostic code #3
--- NOTE | 2021-06-13 16:01 | CR ---
Left humerus: 2 views of the left humerus were obtained. Comparison: No prior humerus study is available. Fracture is noted within the surgical neck of the proximal left humerus. There is displacement up to 1.3 cm. There is extension of the fracture line to involve the base of the greater tuberosity. Other portions of the more distal humerus appear intact. Soft tissue swelling is noted in the area of the fracture. Impression: 1. Displaced fracture involving the surgical neck of the left humerus with associated soft tissue swelling. Slight extension of the fracture to the base of the greater tuberosity is seen. 2. No additional abnormality is appreciated. Diagnostic code #3
[2021-06-13 16:18] VITALS: BP 176/95; PULSE 63
== END 2021-06-13 15:50 ==
LOC: JD.ED 12:11
DX: S42.292A Other displaced fracture of upper end of left humerus, initial encounter for closed fracture (principal); S72.092A Other fracture of head and neck of left femur, initial encounter for closed fracture; I25.10 Atherosclerotic heart disease of native coronary artery without angina pectoris; I12.9 Hypertensive chronic kidney disease with stage 1 through stage 4 chronic kidney disease, or unspecified chronic kidney disease; N18.4 Chronic kidney disease, stage 4 (severe); E03.9 Hypothyroidism, unspecified; K21.9 Gastro-esophageal reflux disease without esophagitis; E78.00 Pure hypercholesterolemia, unspecified; Z91.013 Allergy to seafood; Z88.1 Allergy status to other antibiotic agents; Z91.048 Other nonmedicinal substance allergy status; Z88.0 Allergy status to penicillin; Z91.09 Other allergy status, other than to drugs and biological substances; Z88.2 Allergy status to sulfonamides; Z88.8 Allergy status to other drugs, medicaments and biological substances; Z79.82 Long term (current) use of aspirin; Z79.899 Other long term (current) drug therapy; Z20.822 Contact with and (suspected) exposure to COVID-19; W18.39XA Other fall on same level, initial encounter
CPT/HCPCS: 36415; 51702; 73060; 73502; 80053; 81001; 85025; 87086; 87088; 87186; 96374; 96375; 99285; J0696; J1170; U0002

== ENCOUNTER 2024-05-22 10:26 | Emergency (ER) | payer MEDICARE, MEDICAID ==
[2024-05-22 11:05] VITALS: BP 180/73; PULSE 66
[2024-05-22 11:42] LABS: BASOPHILS PERCENT AUTO 0.2 % (0.0-1.0); HEMATOCRIT 31.7 % (37.0-47.0); HEMOGLOBIN 10.3 gm/dl (12.0-16.0); IMMATURE GRAN ABSOLUTE AUTO 0.02 K/mm3 (0.00-0.05); IMMATURE GRAN PERCENT AUTO 0.4 % (0.0-0.4); LYMPHOCYTES ABSOLUTE AUTO 0.7 K/mm3 (1.0-4.8); LYMPHOCYTES PERCENT AUTO 13.2 % (24.0-44.0); MEAN CORPUSCULAR HEMOGLOBIN 29.7 pg (28.0-32.0); MEAN CORPUSCULAR HGB CONC 32.5 g/dl (32.0-36.0); MEAN CORPUSCULAR VOLUME 91.4 fl (83.0-99.0); MEAN PLATELET VOLUME 9.9 fl (9.4-12.3); MONOCYTES ABSOLUTE AUTO 0.7 K/mm3 (0.0-0.8); MONOCYTES PERCENT AUTO 12.2 % (0.0-8.0); NEUTROPHILS ABSOLUTE AUTO 4.1 K/mm3 (1.8-7.7); PLATELET COUNT,PLT 166 K/mm3 (150-400); RED BLOOD CELL COUNT 3.47 M/mm3 (4.10-5.30); WHITE BLOOD CELL COUNT,WBC 5.47 K/mm3 (3.9-11.3)
[2024-05-22] MEDS: Diphtheria,Pertussis(Acell),Tetanus Vaccine 0.5 ML Syringe IM ONE (12:06)
[2024-05-22] MEDS: Acetaminophen 325 MG Tab PO ONE (12:06)
[2024-05-22 12:07] LABS: ALBUMIN 3.2 g/dl (3.4-5.0); ANION GAP 13.7 (5-15); BILIRUBIN TOTAL 0.3 mg/dL (0.2-1.0); BUN/CREATININE RATIO 27.6 (14-18); CALCIUM 8.2 mg/dL (8.5-10.1); CREATININE 2.1 mg/dL (0.55-1.02); EST CRCL DRUG DOSING (CG) 14.51 mL/min; POTASSIUM,K 4.7 mEq/L (3.5-5.1); PROTEIN TOTAL,TP 6.3 g/dl (6.4-8.2)
== END 2024-05-22 14:10 | disposition home or self-care (01) ==
LOC: JD.ED 10:26
DX: S51.811A Laceration without foreign body of right forearm, initial encounter (principal); M79.642 Pain in left hand; N18.9 Chronic kidney disease, unspecified; Z23 Encounter for immunization; I10 Essential (primary) hypertension; E78.00 Pure hypercholesterolemia, unspecified; M19.90 Unspecified osteoarthritis, unspecified site; E03.9 Hypothyroidism, unspecified; Z88.0 Allergy status to penicillin; Z88.2 Allergy status to sulfonamides; Z91.041 Radiographic dye allergy status; Z91.013 Allergy to seafood; Z88.8 Allergy status to other drugs, medicaments and biological substances; Z79.82 Long term (current) use of aspirin; Z79.899 Other long term (current) drug therapy; Z79.890 Hormone replacement therapy; Z86.16 Personal history of COVID-19; Z90.49 Acquired absence of other specified parts of digestive tract; Z90.710 Acquired absence of both cervix and uterus; W19.XXXA Unspecified fall, initial encounter
CPT/HCPCS: 36415; 70450; 72125; 73090; 73110; 73130; 80053; 85025; 90471; 90715; 93005; 99284; A9270; 93010